=== PATIENT | female | born 1995 | race Caucasian/White ===

== ENCOUNTER → 2024-06-22 | Outpatient (CLI) | payer MEDICARE, MEDICAID, SELFPAY ==
[2024-06-22 19:40] LABS: Collection Type, Urine Clean Catch; Squamous Epithelial Cell,Urine 0 /hpf (0-5)
[2024-06-22 19:50] LABS: Bacteria,Urine 1+; Bilirubin,Urine Negative (Negative); Blood,Urine 2+ (Negative); Clarity,Urine Clear (Clear/Hazy); Color,Urine Lt-Yellow (Lt Yel-Yel); Glucose, Urine Negative (Negative); Ketones,Urine Negative (Negative); Leukocyte Esterase,Urine Positive (Negative); Nitrite,Urine Negative (Negative); PH,Urine 7.5 (5.0-7.0); Protein,Urine Negative (Neg - Trace); RBC,Urine 5 /hpf (0-3); Specific Gravity,Urine 1.006 (1.001-1.035); Urobilinogen,Urine Negative mg/dL (0.0-1.0); WBC,Urine 17 /hpf (0-5)
[2024-06-22 19:58] LABS: Culture Indicated,Urine Yes
== END | disposition home or self-care (01) ==
LOC: SLDO 19:37
PROVIDERS: PCP Family Medicine; Referring Provider Family Medicine; Visit Provider Family Medicine
DX: N39.0 Urinary tract infection, site not specified (principal); G40.89 Other seizures; G80.0 Spastic quadriplegic cerebral palsy
CPT/HCPCS: 81001; 87077; 87086; 87186

== ENCOUNTER → 2024-08-22 | Outpatient (CLI) | payer MEDICARE, MEDICAID, SELFPAY ==
[2024-08-22 11:25] LABS: Collection Type, Urine Catheter
[2024-08-22 11:58] LABS: Bilirubin,Urine Negative (Negative); Blood,Urine 1+ (Negative); Clarity,Urine Turbid (Clear/Hazy); Color,Urine Yellow (Lt Yel-Yel); Glucose, Urine Negative (Negative); Ketones,Urine Negative (Negative); Leukocyte Esterase,Urine Positive (Negative); Nitrite,Urine Negative (Negative); PH,Urine 8.5 (5.0-7.0); Protein,Urine 1+ (Neg - Trace); RBC,Urine 55 /hpf (0-3); Specific Gravity,Urine 1.021 (1.001-1.035); Squamous Epithelial Cell,Urine < 1 /hpf (0-5); Urobilinogen,Urine Negative mg/dL (0.0-1.0); WBC,Urine 37 /hpf (0-5)
[2024-08-22 11:59] LABS: Culture Indicated,Urine Yes
== END | disposition home or self-care (01) ==
LOC: SLDO 11:18
PROVIDERS: PCP Family Medicine; Referring Provider Family Medicine; Visit Provider Family Medicine
DX: N39.0 Urinary tract infection, site not specified (principal); G40.89 Other seizures; G80.0 Spastic quadriplegic cerebral palsy
CPT/HCPCS: 81001; 87077; 87086; 87186

== ENCOUNTER → 2025-01-10 | Outpatient (CLI) | payer MEDICARE, MEDICAID, SELFPAY ==
[2025-01-10 12:35] LABS: Basophils % (Auto) 0 % (0-2.5); Eosinophils % (Auto) 0 % (0-10); Hemoglobin 15.1 g/dL (12.0-16.0); Immature Granulocytes % (Auto) 1 % (0-0); Lymphocytes # (Auto) 2.2 Thou/mm3 (1.0-4.8); Lymphocytes % (Auto) 26 % (10-50); Mean Corpuscular HGB Conc 33.6 g/dl (31.0-37.0); Mean Corpuscular Hemoglobin 30.7 pg (25.0-35.0); Mean Corpuscular Volume 92 fL (80-100); Monocytes # (Auto) 0.7 Thou/mm3 (0.0-0.8); Monocytes % (Auto) 8 % (0-12); Neutrophils # (Auto) 5.4 Thou/mm3 (1.8-7.7); Neutrophils % (Auto) 64 % (37-80); Nucleated Red Blood Cell % 0 /100 WBC (0); Platelet Count 148 Thou/mm3 (140-440); RDW Standard Deviation 45.3 fL (36.4-46.3); Red Blood Count 4.92 Miln/mm3 (4.00-5.20); White Blood Count 8.4 Thou/mm3 (3.6-11.0)
[2025-01-10 12:56] LABS: Alanine Aminotransferase 27 U/L (10-49); Albumin, Serum 4.5 gm/dL (3.5-5.0); Albumin/Globulin Ratio 1.8 (1.2-2.2); Alkaline Phosphatase 77 U/L (46-116); Anion Gap 15 (7-16); BUN/Creatinine Ratio 28 Ratio (12-20); Bilirubin,Total 0.3 mg/dL (0.3-1.2); Blood Urea Nitrogen 14 mg/dL (9-23); Calcium 9.6 mg/dL (8.3-10.6); Calcium (Corrected) 9.6 mg/dL (8.5-10.1); Carbon Dioxide 26.2 mMol/L (20.0-31.0); Chloride 105 mMol/L (98-107); Creatinine (Component) 0.5 mg/dL (0.6-1.3); Globulin 2.5 gm/dL (2.3-3.5); Glucose 68 mg/dL (74-106); Osmolality,Calculated 289 (275-295); Potassium 3.8 mMol/L (3.4-5.1); Sodium 146 mMol/L (136-145); eGFR > 60 See Note
[2025-01-10 13:04] LABS: Sed Rate (ESR) 13 mm/hr (0-20)
[2025-01-20 06:06] LABS: hs-CRP* 4.7 mg/L
== END | disposition home or self-care (01) ==
LOC: SLDO 11:42
PROVIDERS: PCP Internal Medicine; Referring Provider Internal Medicine; Visit Provider Internal Medicine
DX: Z01.818 Encounter for other preprocedural examination (principal)
CPT/HCPCS: 36415; 80053; 85025; 85652; 86141

== ENCOUNTER → 2025-01-12 | Outpatient (CLI) | payer MEDICARE, MEDICAID, SELFPAY ==
[2025-01-12 15:23] LABS: Collection Type, Urine Catheter; Squamous Epithelial Cell,Urine 0 /hpf (0-5)
[2025-01-12 16:39] LABS: Bacteria,Urine 4+; Bilirubin,Urine Negative (Negative); Blood,Urine 3+ (Negative); Color,Urine Yellow (Lt Yel-Yel); Glucose, Urine Negative (Negative); Ketones,Urine Negative (Negative); Leukocyte Esterase,Urine Positive (Negative); Nitrite,Urine Negative (Negative); Protein,Urine 1+ (Neg - Trace); RBC,Urine 16 /hpf (0-3); Specific Gravity,Urine 1.009 (1.001-1.035); Urobilinogen,Urine Negative mg/dL (0.0-1.0); WBC,Urine 51 /hpf (0-5)
[2025-01-12 17:13] LABS: Clarity,Urine Hazy (Clear/Hazy); Culture Indicated,Urine Yes
== END | disposition home or self-care (01) ==
LOC: SLDO 15:13
PROVIDERS: PCP Family Medicine; Referring Provider Family Medicine; Visit Provider Family Medicine
DX: N39.0 Urinary tract infection, site not specified (principal); R31.9 Hematuria, unspecified; G40.89 Other seizures; G80.0 Spastic quadriplegic cerebral palsy
CPT/HCPCS: 81001; 87077; 87086; 87186

== ENCOUNTER 2025-03-01 08:41 | Inpatient (IN) | payer MEDICARE, MEDICAID, SELFPAY ==
[2025-03-01] VITALS (9 sets, daily range): BP systolic 93–127; BP diastolic 57–77; PULSE 114–144; RESP 14–31; TEMP 37.6–40; O2SAT 94–99; BMI 26.1
--- NOTE | 2025-03-01 08:56 | XR_ITS ---
Examination: AP chest single view Technique one AP portable upright chest single view Date and time: March 01, 2025 0944 hours INDICATIONS: Fever vomiting beginning 2 days ago. FINDINGS: Suspicious for early pneumonia left base retrocardiac Significant elevation right hemidiaphragm Minor prominence left ventricle IMPRESSION: Suspicious for early pneumonia left base
--- NOTE | 2025-03-01 08:56 | EKG_ITS ---
[facility] Test Date: 2025-03-01 Pat Name: MIRELA FAROOQ Department: Room: - Gender: Female Security Engineer: : [id number] Requested By: Litzy Paulino Order Number: [id number] Reading MD: Litzy Paulino Measurements Intervals [place] Rate: 121 P: 57 MS: 144 QRS: 117 QRSD: 93 T: 55 QT: 338 QTc: 480 Interpretive Statements SINUS TACHYCARDIA INCOMPLETE RIGHT BUNDLE BRANCH BLOCK [90+ ms QRS DURATION, TERMINAL R IN V1/V2, 40+ ms S IN I/aVL/V4/V5/V6] NONSPECIFIC ST ELEVATION [0.05+ mV ST ELEVATION] Compared to ECG 04/25/2023 17:47:26 Right ventricular hypertrophy no longer present ST (T wave) deviation still present /store/S0/[id number]/[id number].pdf
--- NOTE | 2025-03-01 09:15 | PD.EDSOB ---
ED SOB =RME/HPI General Chief Complaint: Shortness of Breath/Dyspnea Stated Complaint: SOB Time Seen by Provider: 03/01/25 08:49 Arrival date/time: 03/01/25 08:41 RME / HPI RME / HPI Narrative: 29 year old female patient with history of developmental delay, cerebral palsy, seizures, quadriplegia, and previous aspiration pneumonia presents to the ED [facility] from jail for evaluation of shortness of breath and change in mental status today. Per caregiver, at baseline the patient is able to engage in a conversation. However, noted this morning the patient is only yelling and not answering questions. Additionally noted patient was saturating 90% on room air, hypotensive 69/50, and febrile at 102F. State the patient was given Tylenol and Ativan at 08:00 AM today. Caregiver also states patient had one episode of vomiting 2 days ago and concerned she may have aspirated. Related Data Home Medications ?Medication ?Instructions ?Recorded ?Confirmed acetaminophen 325 mg tablet 325 mg PO Q4H PRN Pain 09/05/18 03/02/25 (Tylenol) ascorbic acid (vitamin C) 500 mg 1,000 mg feeding tube BID 09/05/18 03/02/25 tablet (Vitamin C) methenamine hippurate 1 gram tablet 1 g feeding tube BID 09/05/18 03/02/25 polyethylene glycol 3350 17 17 g feeding tube EVERYOTHERDAY 07/31/19 03/02/25 gram/dose oral powder (Gavilax) cholecalciferol (vitamin D3) 125 5,000 unit feeding tube QDAY 08/07/20 03/02/25 mcg (5,000 unit) tablet (Vitamin D3) docusate sodium 50 mg/5 mL oral 25 ml feeding tube BID 08/07/20 03/02/25 liquid (Docu) ferrous sulfate 220 mg (44 mg 220 mg feeding tube HS 08/07/20 03/02/25 iron)/5 mL oral solution ibuprofen 400 mg tablet 400 mg feeding tube Q6H PRN Pain 08/07/20 03/02/25 melatonin 5 mg tablet 5 mg feeding tube HS 08/07/20 03/02/25 metoprolol tartrate 25 mg tablet 12.5 mg feeding tube QDAY 08/07/20 03/02/25 venlafaxine 75 mg tablet 75 mg feeding tube QAM 08/07/20 03/02/25 venlafaxine 75 mg tablet 150 mg feeding tube HS 08/07/20 03/02/25 zinc sulfate 50 mg zinc (220 mg) 220 mg feeding tube QDAY 08/07/20 03/02/25 tablet Calmoseptine See Rx Instructions topical BID 03/02/25 03/04/25 PRN to prevent redness to coccyx baclofen 20 mg tablet 20 mg feeding tube TID 03/02/25 03/02/25 brompheniramine-phenylephrine 1 118 ml feeding tube Q6H PRN 03/02/25 03/02/25 mg-2.5 mg/5 mL oral solution allergy symptoms (Children's Cold-Allergy (phenylephrine)) lamotrigine 100 mg tablet 100 mg feeding tube BID 03/02/25 03/02/25 (Lamictal) lamotrigine 200 mg tablet 400 mg feeding tube Q12H 03/02/25 03/02/25 levetiracetam 100 mg/mL oral 1,000 mg feeding tube BID 03/02/25 03/02/25 solution (Keppra) lorazepam 1 mg tablet 2 mg feeding tube Q4H PRN agitation 03/02/25 03/02/25 olanzapine 5 mg tablet 25 mg feeding tube HS PRN agitation 03/02/25 03/02/25 Previous Rx's ?Medication ?Instructions ?Recorded cefuroxime axetil 500 mg tablet 500 mg PO Q12H 5 days #10 tabs 03/07/25 tamsulosin 0.4 mg capsule 0.4 mg PO QDAY 14 days #14 caps 03/07/25 Allergies Allergy/AdvReac Type Severity Reaction Status Date / Time amoxicillin Allergy Intermediate Hives Verified 08/07/20 12:05 chloral hydrate Allergy Unknown Verified 11/26/16 01:55 Review of Systems Review of Systems ROS Unobtainable: unobtainable due to medical condition Past Medical History Past Medical History NEUROLOGIC: Positive Neurological Disorders, Seizures and Cerebral Palsy RESPIRATORY: Positive Pneumonia and Respiratory Aspiration GASTROINTESTINAL: Positive Gastrointestinal Disorders MUSCULOSKELETAL: Positive Musculoskeletal Disorders OTHER HISTORY: Positive Developmental Delay Surgical History SURGICAL: Positive Joint Replacement Social History SMOKING STATUS: Never smoker SUBSTANCE USE: does not use ED Exam Narrative Physical exam: GENERAL APPEARANCE: Altered, pale, diaphoretic HEENT: Normocephalic, atraumatic; pupils equal, round, reactive to light; EOMI; mucous membranes pink, moist; oropharynx clear NECK: Supple LUNGS: Mild wheeze on the left, upper airway noise on the right; no rales, no rhonchi HEART: Regular rate, regular rhythm; normal S1, S2; no murmurs ABDOMEN: non distended; normal BS; soft, no tenderness, no guarding, no rebound; no masses, no organomegaly, no hernia BACK: no CVA tenderness EXTREMITIES: chronic limb contracture; no edema NEUROLOGIC: Altered; cranial nerves II-XII grossly intact SKIN: warm, pale, diaphoretic; no rashes Course Course Course Narrative: 1020: RN reports patient has received 1L of IV NS and remains hypotensive at 80/62. 1250: I spoke with hospitalist team, they are requesting CT abd/pelvis prior to admission. CT abdomen pelvis resulted and discussed results with hospitalist Dr. He who is requesting we consult with urology prior to admission. 1800: Patient signed out to Dr. Avila pending transfer for urology. Quality Measures Current suspected stage: sepsis Possible source: genitourinary Blood cultures ordered: completed in ED Antibiotic ordered: Yes Pertinent labs: 03/01/25 03/01/25 09:22 16:48 Lactic Acid 1.9 mMol/L 1.5 mMol/L (0.4-2.0) (0.4-2.0) Procalcitonin 0.66 H ng/ml (0.0-0.49) sepsis Orders Category Date Time Status Bedside COVID-19 Antigen Test NOW Care 03/01/25 10:35 Completed Bedside Influenza A&B Antigen Test NOW Care 03/01/25 10:35 Completed [employer]s Sales Q4H START 00 Care 03/01/25 08:56 Active EKG (ED ONLY) *Do not use* NOW Care 03/01/25 08:56 Completed Referral - Work From Home Stat Cons 03/01/25 16:[address] abdomen pelvis wo con Stat Exams 03/01/25 12:[address] head/brain wo con Stat Exams 03/01/25 12:55 Completed EKG (ED Only) Stat Exams 03/01/25 08:56 Draft XR chest 1V portable Stat Exams 03/01/25 08:56 Completed B-Type Natriuretic Peptide Stat Lab 03/01/25 09:22 Completed Blood Culture (Lab) Stat Lab 03/01/25 09:22 Completed CBC Stat Lab 03/01/25 09:22 Completed Comprehensive Metabolic Panel Stat Lab 03/01/25 09:22 Completed HCG,Qualitative Serum Stat Lab 03/01/25 09:22 Completed Lactate (Lactic Acid) Stat Lab 03/01/25 09:22 Completed Lactic Acid [Lactate (Lactic Acid)] Stat Lab 03/01/25 16:48 Completed Lipase Stat Lab 03/01/25 09:22 Completed Magnesium Stat Lab 03/01/25 09:22 Completed Partial Thromboplastin Time Stat Lab 03/01/25 09:22 Completed Procalcitonin Stat Lab 03/01/25 09:22 Completed Prothrombin Time with INR Stat Lab 03/01/25 09:22 Completed Troponin I Stat Lab 03/01/25 09:22 Completed Urinalysis Stat Lab 03/01/25 11:34 Completed Urine Culture Stat Lab 03/01/25 10:12 Completed VBG [Venous Blood Gas] Stat Lab 03/01/25 16:48 Completed Acetaminophen Ivpb [Ofirmev Inj] Med 03/01/25 20:53 Discontinued 1,000 mg in 100 ml IV Q6HR Acetaminophen Supp [Tylenol Supp] Med 03/01/25 09:39 Discontinued 650 mg WV X1 ONE Clindamycin 900Mg Ivpb [Cleocin/D5w Ivpb] 900 mg Med 03/01/25 21:08 Discontinued Pre-Mixed [Pre-mixed Bag] 1 bag IV X1 Morphine Inj Med 03/01/25 10:40 Discontinued 3 mg IVP X1 ONE Ondansetron Inj [Zofran Inj] Med 03/01/25 10:40 Discontinued 4 mg IVP X1 ONE Ringers Lactated 1000 ml [Lactated Ringers] 500 ml Med 03/01/25 18:00 Discontinued IV 999 mls/hr Sodium Chloride 0.9% 1000 ml [Ns] 1,000 ml Med 03/01/25 09:39 Discontinued IV 999 mls/hr Sodium Chloride 0.9% 1000 ml [Ns] 1,000 ml Med 03/01/25 10:20 Discontinued IV 999 mls/hr Sodium Chloride 0.9% 1000 ml [Ns] 1,000 ml Med 03/01/25 16:00 Discontinued IV 999 mls/hr Sodium Chloride 0.9% 1000 ml [Ns] 1,000 ml Med 03/01/25 20:53 Discontinued IV 999 mls/hr cefTRIAXone/D5w 1gm IV premix [Rocephin/D5w 1gm IV Med 03/01/25 10:32 Discontinued premix] 1 gm in 50 ml IV X1 fentaNYL INJ [Sublimaze Inj] Med 03/01/25 15:01 Discontinued 100 mcg IVP X1 ONE Vital Signs Vital signs: Vital Signs Temperature 103.2 F H 03/01/25 09:05 Pulse Rate 123 H 03/01/25 09:05 Respiratory Rate 31 H 03/01/25 09:05 Blood Pressure 93/63 03/01/25 09:05 Pulse Oximetry (%) 94 L 03/01/25 09:05 Oxygen Delivery Method Nasal Cannula 03/01/25 09:05 Oxygen Flow Rate 4 03/01/25 09:05 Shortness of Breath / Dyspnea MDM Narrative MDM Narrative:: Madelin Rasmussen am scribing for and in the presence of Dr. Falcon. Patient data External records reviewed:: [facility] previous records (I reviewed ED visit on 04/25/2023. I reviewed urine culture on 01/12/2025 that resulted positive for proteus mirabilis and resistant to Levofloxacin, Nitrofurantoin, and Tetracycline ) and EMS form Clinical information provided by:: EMS and home care provider Social determinants that could affect healthcare access:: housing (jail resident ) Patient has the following chronic illnesses:: developmental delay, cerebral palsy, seizures, quadriplegia, and previous aspiration pneumonia How is presenting disease/condition affected by chronic disease/condition?: exacerbated by Evaluation data The following diagnostics were reviewed and interpreted by me:: lab results, radiology exam(s) and EKG tracing(s) (Sinus tachycardia, rate 121, complete RBBB, Q-wave in lead III T-wave inversion in v1 through v5, no acute ischemic changes. ) Lab and/or radiology exams considered but not ordered:: None Interpretation Summary: Ordering Physician: Litzy Falcon MD Date of Service: 03/01/25 Procedure(s): XR chest 1V portable Accession Number(s): [id number] cc: Hever Mcgowan MD; Radha Juan SKETCH LINER; Litzy Falcon MD~ Examination: AP chest single view Technique one AP portable upright chest single view Date and time: March 01, 2025 0944 hours INDICATIONS: Fever vomiting beginning 2 days ago. FINDINGS: Suspicious for early pneumonia left base retrocardiac Significant elevation right hemidiaphragm Minor prominence left ventricle IMPRESSION: Suspicious for early pneumonia left base Dictated By: Hever Mcgowan MD Signed By: <Electronically signed by Hever Mcgowan MD in OV> 03/01/25 1010 Ordering Physician: Litzy Falcon MD Date of Service: 03/01/25 Procedure(s): CT abdomen pelvis [facility] Accession Number(s): [id number] cc: Hever Mcgowan MD; Radha Juan SKETCH LINER; Litzy Falcon MD~ Examination: CT abdomen and pelvis without contrast. Coronal 3-D reconstructions. Sagittal 2-D reconstructions. Date and time of exam:March 01, 2025 1443 hours Comparison 04/25/2023 INDICATIONS: Hematuria today CTDI: vol (mGy): 12.9 DLP: (mGycm): 687 Technique: Axial images of the abdomen have been obtained, 3 mm slice thickness Intravenous contrast material has not been administered. Low dose protocols were performed. One or more of the following dose reduction techniques were used; automated exposure control, adjustment of the mA and/or KV according to patient size, use of iterative reconstruction technique. Findings: Mild enlargement cardiac contour Atelectasis in the lower lung zones Mild hepatomegaly No gallstones No pancreatic or adrenal mass Numerous bilateral calcifications including 20 mm calculus in the right renal pelvis on the right and staghorn calculus occupying lower pole calyces left kidney and left renal pelvis, the pelvic portion measuring 18 mm Severe scarring left kidney No hydronephrosis No pericecal inflammatory change Severe lumbar levoscoliosis Urinary Shen catheter Contracted urinary bladder Gastrostomy tube satisfactory position IMPRESSION: Numerous bilateral renal calcifications however no hydronephrosis Severe scarring left kidney Dictated By: Hever Mcgowan MD Signed By: <Electronically signed by Hever Mcgowan MD in OV> 03/01/25 1503 Ordering Physician: Litzy Falcon MD Date of Service: 03/01/25 Procedure(s): CT head/brain wo con Accession Number(s): [id number] cc: Hever Mcgowan MD; Radha Juan SKETCH [employer]ER; Litzy Falcon MD~ Examination: CT brain head without contrast. 2-D sagittal coronal reconstructions Date and time of exam:March 01, 2025 1439 hours Comparison July 31, 2019 INDICATIONS: Onset altered mental status today CTDI: vol (mGy):57.9 DLP: (mGycm):1218 Technique: Multiple CT axial sections of the brain have been obtained, 5 mm slice thickness. Contrast has not been administered. 2-D sagittal, coronal reconstructions have been obtained Low dose protocols were performed. One or more of the following dose reduction techniques were used; automated exposure control, adjustment of the mA and/or KV according to patient size, use of iterative reconstruction technique. Findings: No significant ventricular enlargement. Intra-axial or extra-axial hemorrhage density is not seen. No mass effect or midline shift Basal cisterns are not remarkable. Fourth ventricle is midline. Cranial vault intact. Impression: Negative for acute hemorrhage, mass effect or midline shift Advise clinical correlation and follow-up accordingly Dictated By: Hever Mcgowan MD Signed By: <Electronically signed by Hever Mcgowan MD in OV> 03/01/25 1455 Medications / Prescriptions Medications or Prescriptions considered but not ordered:: None Medication administrations:: Medication Administration History Acetylcysteine (Acetylcysteine Rt Melanie 10% 4 Ml Nebu) 3 ml INH Q6HRRT NOMAN Stop: 04/02/25 18:59 Last Admin: 03/06/25 06:13 Dose: 3 ml Documented By: Admin: 03/06/25 00:59 Dose: 3 ml Documented By: Admin: 03/05/25 18:56 Dose: 3 ml Documented By: Admin: 03/05/25 13:17 Dose: 3 ml Documented By: Admin: 03/05/25 06:41 Dose: Not Given Documented By: [email or web address] Non-Admin Reason: Medication Not Available Admin: 03/05/25 01:47 Dose: 3 ml Documented By: Admin: 03/04/25 18:51 Dose: 3 ml Documented By: Admin: 03/04/25 12:14 Dose: 3 ml Documented By: Admin: 03/04/25 06:00 Dose: 3 ml Documented By: Admin: 03/04/25 00:23 Dose: 3 ml Documented By: Admin: 03/03/25 18:29 Dose: 3 ml Documented By: NOEL Ascorbic Acid (Ascorbic Acid 250 Mg Tablet) 1,000 mg GT BID NOMAN Stop: 04/01/25 08:59 Last Admin: 03/07/25 20:49 Dose: 1,000 mg Documented By: Admin: 03/07/25 09:07 Dose: 1,000 mg Documented By: Admin: 03/06/25 20:57 Dose: 1,000 mg Documented By: Admin: 03/06/25 08:21 Dose: 1,000 mg Documented By: Admin: 03/05/25 20:33 Dose: 1,000 mg Documented By: Admin: 03/05/25 08:56 Dose: 1,000 mg Documented By: Admin: 03/04/25 20:22 Dose: 1,000 mg Documented By: Admin: 03/04/25 08:49 Dose: 1,000 mg Documented By: Admin: 03/03/25 20:36 Dose: 1,000 mg Documented By: Admin: 03/03/25 09:15 Dose: 1,000 mg Documented By: [email or web address] Admin: 03/02/25 21:14 Dose: 1,000 mg Documented By: Admin: 03/02/25 09:40 Dose: 1,000 mg Documented By: CS Azithromycin (Azithromycin 250 Mg Tablet) 250 mg PO QDAY NOMAN Stop: 03/09/25 08:59 Last Admin: 03/07/25 09:07 Dose: 250 mg Documented By: Admin: 03/06/25 08:40 Dose: 250 mg Documented By: BASHIR Balsam Kay/Altoona Oil (Balsam Kay/[place] Oil (Venelex) 60 Gm Tube) 0 gm TOP TID NOMAN Stop: 04/01/25 05:59 Last Admin: 03/08/25 05:15 Dose: 1 applicatio Documented By: Admin: 03/07/25 21:04 Dose: 1 applicatio Documented By: RAKAN Comments: Admin: 03/07/25 13:12 Dose: 1 applicatio Documented By: Admin: 03/07/25 05:42 Dose: 1 applicatio Documented By: Admin: 03/06/25 21:06 Dose: 1 applicatio Documented By: Admin: 03/06/25 14:45 Dose: 1 applicatio Documented By: Admin: 03/06/25 05:21 Dose: 1 applicatio Documented By: Admin: 03/05/25 21:17 Dose: 1 applicatio Documented By: Admin: 03/05/25 14:39 Dose: 1 applicatio Documented By: Admin: 03/05/25 05:15 Dose: 1 applicatio Documented By: Admin: 03/04/25 21:14 Dose: 1 applicatio Documented By: Admin: 03/04/25 14:09 Dose: 1 applicatio Documented By: Admin: 03/04/25 05:48 Dose: 1 applicatio Documented By: Admin: 03/03/25 22:51 Dose: 1 applicatio Documented By: Admin: 03/03/25 14:42 Dose: 1 applicatio Documented By: Admin: 03/03/25 05:33 Dose: 1 applicatio Documented By: Admin: 03/02/25 21:20 Dose: 1 applicatio Documented By: Admin: 03/02/25 14:23 Dose: 1 applicatio Documented By: Admin: 03/02/25 05:59 Dose: 1 applicatio Documented By: MICHELLE(2) Methenamine Hippurate 1 Gm Tablet 0 ea GT BIDWM NOMAN Stop: 04/01/25 08:29 Last Admin: 03/07/25 17:25 Dose: 1 tablet Documented By: Admin: 03/07/25 09:00 Dose: 1 tablet Documented By: Admin: 03/06/25 17:50 Dose: 1 tablet Documented By: Admin: 03/06/25 08:19 Dose: 1 tablet Documented By: Admin: 03/05/25 17:26 Dose: 1 tablet Documented By: Admin: 03/05/25 08:55 Dose: 1 tablet Documented By: Admin: 03/04/25 16:30 Dose: 1 tablet Documented By: Admin: 03/04/25 08:48 Dose: 1 tablet Documented By: Admin: 03/03/25 17:38 Dose: 1 tablet Documented By: Admin: 03/03/25 09:17 Dose: 1 tablet Documented By: Admin: 03/02/25 19:36 Dose: 1 tablet Documented By: Admin: 03/02/25 09:30 Dose: 1 tablet Documented By: PADDY Guaifenesin (Guaifenesin Syrup 200 Mg/10 Ml Udc) 100 mg PO QID PRN; Protocol PRN Reason: COUGH Stop: 04/02/25 11:58 Last Admin: 03/04/25 05:47 Dose: 100 mg Documented By: ARACELI Acetaminophen (Ofirmev Inj) 1,000 mg in 100 mls @ 250 mls/hr IV Q6HR PRN PRN Reason: Pain 1-3 or Fever>100.1 Last Infusion: 03/02/25 10:05 Dose: Infused Documented By: Admin: 03/02/25 09:39 Dose: 250 mls/hr Documented By: Infusion: 03/02/25 02:10 Dose: Infused Documented By: Admin: 03/02/25 01:46 Dose: 250 mls/hr Documented By: CMC(2) Ceftriaxone Sodium/Dextrose (Rocephin/D5w 1gm Iv Premix) 1 gm in 50 mls @ 100 mls/hr IV QDAY NOMAN Stop: 03/12/25 14:53 Last Infusion: 03/07/25 10:15 Dose: Infused Documented By: Admin: 03/07/25 09:04 Dose: 100 mls/hr Documented By: Infusion: 03/06/25 09:14 Dose: Infused Documented By: Admin: 03/06/25 08:44 Dose: 100 mls/hr Documented By: Infusion: 03/05/25 15:57 Dose: Infused Documented By: Admin: 03/05/25 15:27 Dose: 100 mls/hr Documented By: ESHA Ipratropium [place] (Ipratropium Rt 0.5 Mg/ 2.5 Ml Nebu) 0.5 mg INH Q6HRRT NOMAN Stop: 04/03/25 18:59 Last Admin: 03/08/25 06:52 Dose: 0.5 mg Documented By: Admin: 03/08/25 01:14 Dose: 0.5 mg Documented By: Admin: 03/07/25 18:44 Dose: 0.5 mg Documented By: Admin: 03/07/25 12:03 Dose: 0.5 mg Documented By: Admin: 03/07/25 06:34 Dose: 0.5 mg Documented By: Admin: 03/07/25 01:17 Dose: 0.5 mg Documented By: Admin: 03/06/25 18:45 Dose: 0.5 mg Documented By: Admin: 03/06/25 12:12 Dose: 0.5 mg Documented By: Admin: 03/06/25 06:13 Dose: 0.5 mg Documented By: Admin: 03/06/25 01:00 Dose: 0.5 mg Documented By: Admin: 03/05/25 18:56 Dose: 0.5 mg Documented By: Admin: 03/05/25 13:17 Dose: 0.5 mg Documented By: Admin: 03/05/25 06:41 Dose: 0.5 mg Documented By: Admin: 03/05/25 01:47 Dose: 0.5 mg Documented By: SC Admin: 03/04/25 18:51 Dose: 0.5 mg Documented By: SC Lamotrigine (Lamotrigine 25 Mg Chew) 500 mg GT BID NOMAN Stop: 04/06/25 20:59 Last Admin: 03/07/25 20:46 Dose: 500 mg Documented By: IG Lansoprazole (Lansoprazole 30 Mg Tab.Rap) 30 mg GT BID NOMAN Stop: 04/01/25 08:59 Last Admin: 03/07/25 20:47 Dose: 30 mg Documented By: Admin: 03/07/25 09:08 Dose: 30 mg Documented By: Admin: 03/06/25 20:57 Dose: 30 mg Documented By: Admin: 03/06/25 08:24 Dose: 30 mg Documented By: Admin: 03/05/25 20:33 Dose: 30 mg Documented By: Admin: 03/05/25 08:57 Dose: 30 mg Documented By: Admin: 03/04/25 20:23 Dose: 30 mg Documented By: Admin: 03/04/25 08:51 Dose: 30 mg Documented By: Admin: 03/03/25 20:36 Dose: 30 mg Documented By: Admin: 03/03/25 09:10 Dose: 30 mg Documented By: [email or web address] Admin: 03/02/25 21:15 Dose: 30 mg Documented By: Admin: 03/02/25 09:40 Dose: 30 mg Documented By: PADDY Levalbuterol HCl (Levalbuterol Rt 1.25 Mg/0.5 Ml Nebu) 1.25 mg INH Q6HRRT PRN PRN Reason: WHEEZING Stop: 04/03/25 15:41 Levetiracetam (Levetiracetam Liqd 500 Mg/5 Ml Udc) 1,000 mg GT BID NOMAN Stop: 04/06/25 20:59 Last Admin: 03/07/25 20:47 Dose: 1,000 mg Documented By: IG Lorazepam (Lorazepam 0.5 Mg Tablet) 2 mg PO Q6H PRN PRN Reason: agitation Stop: 03/08/25 18:43 Last Admin: 03/06/25 16:24 Dose: 2 mg Documented By: Admin: 03/06/25 06:24 Dose: 2 mg Documented By: Admin: 03/05/25 22:49 Dose: 2 mg Documented By: Admin: 03/05/25 15:15 Dose: 2 mg Documented By: Admin: 03/04/25 08:58 Dose: 2 mg Documented By: ESHA Melatonin (Melatonin 3 Mg Tablet) 6 mg GT HS [facility]; Protocol Stop: 04/01/25 20:59 Last Admin: 03/07/25 20:49 Dose: 6 mg Documented By: Admin: 03/06/25 20:58 Dose: 6 mg Documented By: Admin: 03/05/25 20:34 Dose: 6 mg Documented By: Admin: 03/04/25 20:22 Dose: 6 mg Documented By: Admin: 03/03/25 20:36 Dose: 6 mg Documented By: Admin: 03/02/25 21:15 Dose: 6 mg Documented By: Metoprolol Tartrate (Metoprolol Tartrate 25 Mg Tablet) 25 mg GT BID NOMAN Stop: 04/06/25 20:59 Last Admin: 03/07/25 20:48 Dose: 25 mg Documented By: RAKAN Multivitamins/Minerals (Multivitamin 15 Ml Udc) 15 ml GT QDAY [facility] Stop: 04/01/25 08:59 Last Admin: 03/07/25 09:07 Dose: 15 ml Documented By: Admin: 03/06/25 08:40 Dose: 15 ml Documented By: Admin: 03/05/25 08:55 Dose: 15 ml Documented By: Admin: 03/04/25 08:49 Dose: 15 ml Documented By: Admin: 03/03/25 09:09 Dose: 15 ml Documented By: [email or web address] Admin: 03/02/25 09:39 Dose: 15 ml Documented By: PADDY Olanzapine (Olanzapine 5 Mg Tablet) 20 mg GT HS [facility] Stop: 04/01/25 20:59 Last Admin: 03/07/25 20:47 Dose: 20 mg Documented By: Admin: 03/06/25 20:58 Dose: 20 mg Documented By: Admin: 03/05/25 20:34 Dose: 20 mg Documented By: Admin: 03/04/25 20:22 Dose: 20 mg Documented By: Admin: 03/03/25 20:36 Dose: 20 mg Documented By: Admin: 03/02/25 21:14 Dose: 20 mg Documented By: Ondansetron HCl (Ondansetron Inj 2 Mg/Ml Inj 2 Ml) 4 mg IVP Q6H PRN; Protocol PRN Reason: NAUSEA OR VOMITING Stop: 03/31/25 22:47 Polyethylene Glycol (Polyethylene Glycol 17 Gm Packet) 17 gm GT QOD PRN; Protocol PRN Reason: constipation Stop: 04/01/25 08:59 Sennosides (Senna Tablet) 1 tab GT QDAY PRN; Protocol PRN Reason: constipation Stop: 03/31/25 22:47 Sodium Chloride (Sodium Chloride Rt Melanie 0.9% 3 Ml Nebu) 3 ml INH PRN PRN PRN Reason: SOLN Stop: 04/03/25 15:41 Trazodone HCl (Trazodone Hcl 50 Mg Tablet) 50 mg GT HS PRN PRN Reason: Sleep Stop: 03/31/25 22:56 Last Admin: 03/05/25 21:26 Dose: 50 mg Documented By: Admin: 03/04/25 23:30 Dose: 50 mg Documented By: Admin: 03/02/25 02:38 Dose: 50 mg Documented By: MICHELLE(2) Venlafaxine HCl (Venlafaxine 37.5 Mg Tablet) 75 mg GT QAM NOMAN Stop: 04/01/25 08:59 Last Admin: 03/07/25 09:07 Dose: 75 mg Documented By: Admin: 03/06/25 08:23 Dose: 75 mg Documented By: Admin: 03/05/25 09:50 Dose: 75 mg Documented By: Admin: 03/04/25 08:51 Dose: 75 mg Documented By: Admin: 03/03/25 09:10 Dose: 75 mg Documented By: [email or web address] Admin: 03/02/25 10:00 Dose: 75 mg Documented By: PADDY Venlafaxine HCl (Venlafaxine 37.5 Mg Tablet) 150 mg GT HS ONMAN Stop: 04/01/25 20:59 Last Admin: 03/07/25 20:48 Dose: 150 mg Documented By: Admin: 03/06/25 20:58 Dose: 150 mg Documented By: Admin: 03/05/25 20:34 Dose: 150 mg Documented By: Admin: 03/04/25 20:22 Dose: 150 mg Documented By: Admin: 03/03/25 20:35 Dose: 150 mg Documented By: Admin: 03/02/25 21:15 Dose: 150 mg Documented By: Vitamin D (Cholecalciferol (Vitamin D3) 1,000 Iu Tablet) 5,000 iu GT QDAY NOMAN Stop: 04/01/25 08:59 Last Admin: 03/07/25 09:08 Dose: 5,000 iu Documented By: Admin: 03/06/25 08:22 Dose: 5,000 iu Documented By: Admin: 03/05/25 08:59 Dose: 5,000 iu Documented By: Admin: 03/04/25 08:52 Dose: 5,000 iu Documented By: Admin: 03/03/25 09:09 Dose: 5,000 iu Documented By: Admin: 03/02/25 09:40 Dose: 5,000 iu Documented By: PADDY Zinc Sulfate (Zinc Sulfate 220 Mg Capsule) 220 mg GT QDAY NOMAN Stop: 04/01/25 08:59 Last Admin: 03/07/25 09:07 Dose: 220 mg Documented By: Admin: 03/06/25 08:24 Dose: 220 mg Documented By: Admin: 03/05/25 08:57 Dose: 220 mg Documented By: Admin: 03/04/25 08:51 Dose: 220 mg Documented By: Admin: 03/03/25 09:16 Dose: 220 mg Documented By: Admin: 03/02/25 09:44 Dose: 220 mg Documented By: PADDY Discontinued Medications Acetaminophen (Acetaminophen Supp 650 Mg Supp) 650 mg W[place] X1 ONE Stop: 03/01/25 09:40 Last Admin: 03/01/25 10:12 Dose: 650 mg Documented By: ROSA MARIA Acetaminophen (Acetaminophen 325 Mg Tablet) 650 mg PO Q6H PRN PRN Reason: PAIN SCALE 1-3 (mild Stop: 03/31/25 22:47 Ascorbic Acid (Ascorbic Acid 250 Mg Tablet) 1,000 mg PO BID NOMAN Stop: 03/31/25 22:59 Last Admin: 03/02/25 00:14 Dose: Not Given Documented By: SF Non-Admin Reason: Cancelled by Provider Azithromycin (Azithromycin 250 Mg Tablet) 500 mg PO X1 ONE Stop: 03/05/25 14:58 Last Admin: 03/05/25 15:27 Dose: 500 mg Documented By: ESHA Fentanyl Citrate (Fentanyl Cit Inj 50 Mcg/Ml Amp 2ml) 100 mcg IVP X1 ONE Stop: 03/01/25 15:02 Last Admin: 03/01/25 15:28 Dose: 100 mcg Documented By: BASHIR(2) Fosfomycin Tromethamine (Fosfomycin Pwd 3 Gm Packet (Non-Formulary)) 3 gm PO DAILY NOMAN Stop: 03/10/25 10:29 Last Admin: 03/04/25 19:34 Dose: Not Given Documented By: SAMIRA Non-Admin Reason: Discontinued Admin: 03/03/25 11:30 Dose: 3 gm Documented By: ROBBIE Furosemide (Furosemide Inj 10 Mg/Ml 4ml Vial) 40 mg IVP X1 ONE Stop: 03/06/25 10:59 Last Admin: 03/06/25 16:21 Dose: Not Given Documented By: BASHIR Non-Admin Reason: Other, see note Furosemide (Furosemide Inj 10 Mg/Ml 4ml Vial) 40 mg IVP X1 ONE Stop: 03/06/25 16:23 Last Admin: 03/06/25 16:30 Dose: 40 mg Documented By: BASHIR Furosemide (Furosemide Inj 10 Mg/Ml 4ml Vial) 40 mg IVP X1 ONE Stop: 03/07/25 08:38 Last Admin: 03/07/25 09:20 Dose: 40 mg Documented By: BASHIR Guaifenesin (Guaifenesin Syrup 200 Mg/10 Ml Udc) 100 mg PO X1 ONE; Protocol Stop: 03/03/25 12:00 Last Admin: 03/03/25 12:38 Dose: 100 mg Documented By: ROBBIE Hyoscyamine (Hyoscyamine Sulf 0.125 Mg Tab.Subl) 0.25 mg GT X1 ONE Stop: 03/06/25 07:55 Last Admin: 03/06/25 08:20 Dose: 0.25 mg Documented By: BASHIR Hyoscyamine (Hyoscyamine Sulf 0.125 Mg Tab.Subl) 0.25 mg GT X1 ONE Stop: 03/07/25 09:42 Last Admin: 03/07/25 10:51 Dose: 0.25 mg Documented By: BASHIR Sodium Chloride (Ns) 1,000 mls @ 999 mls/hr IV .Q1H1M ONE Stop: 03/01/25 10:39 Last Infusion: 03/01/25 11:13 Dose: Infused Documented By: BASHIR(2) Admin: 03/01/25 10:12 Dose: 999 mls/hr Documented By: ROSA MARIA Sodium Chloride (Ns) 1,000 mls @ 999 mls/hr IV .Q1H1M ONE Stop: 03/01/25 11:20 Last Infusion: 03/01/25 11:28 Dose: Infused Documented By: VL(2) Admin: 03/01/25 10:27 Dose: 999 mls/hr Documented By: ROSA MARIA Ceftriaxone Sodium/Dextrose (Rocephin/D5w 1gm Iv Premix) 1 gm in 50 mls @ 100 mls/hr IV X1 ONE Stop: 03/01/25 11:01 Last Infusion: 03/01/25 11:48 Dose: Infused Documented By: BASHIR(2) Admin: 03/01/25 11:18 Dose: 100 mls/hr Documented By: ROSA MARIA Sodium Chloride (Ns) 1,000 mls @ 999 mls/hr IV .Q1H1M ONE Stop: 03/01/25 17:00 Last Infusion: 03/01/25 18:00 Dose: Infused Documented By: ROSA MARIA Admin: 03/01/25 16:15 Dose: 999 mls/hr Documented By: ROSA MARIA Lactated Ringer's (Lactated Ringers) 500 mls @ 999 mls/hr IV .Q31M ONE Stop: 03/01/25 18:30 Last Infusion: 03/01/25 19:34 Dose: Infused Documented By: Admin: 03/01/25 17:59 Dose: 999 mls/hr Documented By: ROSA MARIA Acetaminophen (Ofirmev Inj) 1,000 mg in 100 mls @ 250 mls/hr IV Q6HR NOMAN Stop: 03/02/25 12:23 Last Admin: 03/02/25 02:30 Dose: Not Given Documented By: CMC(2) Non-Admin Reason: Not In Room Infusion: 03/01/25 21:35 Dose: Infused Documented By: Admin: 03/01/25 21:08 Dose: 250 mls/hr Documented By: CHERYL Sodium Chloride (Ns) 1,000 mls @ 999 mls/hr IV .Q1H1M ONE Stop: 03/01/25 21:53 Last Infusion: 03/01/25 23:23 Dose: Infused Documented By: Admin: 03/01/25 21:10 Dose: 999 mls/hr Documented By: CHERYL Clindamycin Phosphate 900 mg/ (IV Miscellaneous Supplies) 50 mls @ 50 mls/hr IV X1 ONE Stop: 03/01/25 22:07 Last Infusion: 03/01/25 23:24 Dose: Infused Documented By: Admin: 03/01/25 21:30 Dose: 50 mls/hr Documented By: CHERYL Piperacillin/Tazobactam/Dextrose (Zosyn) 3.375 gm in 50 mls @ 12.5 mls/hr IV Q8HR [facility]; Protocol Stop: 03/09/25 05:59 Last Admin: 03/03/25 05:32 Dose: 12.5 mls/hr Documented By: Infusion: 03/03/25 02:35 Dose: Infused Documented By: Admin: 03/02/25 22:35 Dose: 12.5 mls/hr Documented By: Infusion: 03/02/25 19:00 Dose: Infused Documented By: Admin: 03/02/25 15:00 Dose: 12.5 mls/hr Documented By: Infusion: 03/02/25 09:59 Dose: Infused Documented By: Admin: 03/02/25 05:59 Dose: 12.5 mls/hr Documented By: CMC(2) Piperacillin Sod/Tazobactam (Sod 4.5 gm/ Sodium Chloride) 100 mls @ 200 mls/hr IV X1 ONE Stop: 03/02/25 00:14 Last Admin: 03/02/25 00:42 Dose: 200 mls/hr Documented By: CHERYL Magnesium Sulfate (Magnesium Sulfate Ivpb) 2 gm in 50 mls @ 25 mls/hr IV X1 ONE Stop: 03/02/25 10:23 Last Admin: 03/02/25 09:24 Dose: 25 mls/hr Documented By: PADDY Potassium Phosphate 22.5 mmol/ (Sodium Chloride) 507.5 mls @ 82.778 mls/hr IV X1 ONE Stop: 03/03/25 14:19 Last Admin: 03/03/25 09:16 Dose: 82.778 mls/hr Documented By: [email or web address] Magnesium Sulfate (Magnesium Sulfate Ivpb) 4 gm in 50 mls @ 12.5 mls/hr IV X1 ONE Stop: 03/04/25 12:19 Last Admin: 03/04/25 09:42 Dose: 12.5 mls/hr Documented By: AURE Potassium Phosphate 22.5 mmol/ (Sodium Chloride) 507.5 mls @ 82.778 mls/hr IV X1 ONE Stop: 03/04/25 14:27 Last Admin: 03/04/25 09:41 Dose: 82.778 mls/hr Documented By: AURE Magnesium Sulfate (Magnesium Sulfate Ivpb) 2 gm in 50 mls @ 25 mls/hr IV X1 ONE Stop: 03/06/25 09:52 Last Admin: 03/06/25 10:08 Dose: 25 mls/hr Documented By: BASHIR Levalbuterol HCl (Levalbuterol Rt 0.63 Mg/3 Ml Nebu) 0.63 mg INH Q6HRRT NOMAN Stop: 04/01/25 01:59 Last Admin: 03/04/25 12:14 Dose: 0.63 mg Documented By: Admin: 03/04/25 06:01 Dose: 0.63 mg Documented By: Admin: 03/04/25 00:24 Dose: 0.63 mg Documented By: Admin: 03/03/25 18:29 Dose: 0.63 mg Documented By: Admin: 03/03/25 14:02 Dose: 0.63 mg Documented By: Admin: 03/03/25 06:31 Dose: 0.63 mg Documented By: Admin: 03/03/25 01:27 Dose: 0.63 mg Documented By: Admin: 03/02/25 19:09 Dose: 0.63 mg Documented By: Admin: 03/02/25 13:26 Dose: 0.63 mg Documented By: Admin: 03/02/25 06:25 Dose: 0.63 mg Documented By: Admin: 03/02/25 02:13 Dose: 0.63 mg Documented By: KREVIN Levalbuterol HCl (Levalbuterol Rt 0.63 Mg/3 Ml Nebu) 0.63 mg INH X1 ONE Stop: 03/03/25 18:37 Last Admin: 03/03/25 19:28 Dose: Not Given Documented By: NOEL Non-Admin Reason: Duplicate Medication on eMAR Levetiracetam (Levetiracetam Liqd 500 Mg/5 Ml Udc) 500 mg PO BID [facility] Stop: 03/31/25 22:59 Last Admin: 03/02/25 00:14 Dose: Not Given Documented By: SF Non-Admin Reason: Discontinued Levetiracetam (Levetiracetam Liqd 500 Mg/5 Ml Udc) 500 mg GT BID NOMAN Stop: 03/07/25 18:44 Last Admin: 03/07/25 09:07 Dose: 500 mg Documented By: Admin: 03/06/25 20:57 Dose: 500 mg Documented By: Admin: 03/06/25 08:39 Dose: 500 mg Documented By: Admin: 03/05/25 20:34 Dose: 500 mg Documented By: Admin: 03/05/25 08:55 Dose: 500 mg Documented By: Admin: 03/04/25 20:22 Dose: 500 mg Documented By: Admin: 03/04/25 08:49 Dose: 500 mg Documented By: Admin: 03/03/25 20:36 Dose: 500 mg Documented By: Admin: 03/03/25 09:09 Dose: 500 mg Documented By: Admin: 03/02/25 21:15 Dose: 500 mg Documented By: Admin: 03/02/25 09:39 Dose: 500 mg Documented By: PDADY Levofloxacin (Levofloxacin 250 Mg Tablet) 500 mg PO QDAY [facility] Stop: 03/08/25 12:00 Last Admin: 03/05/25 08:57 Dose: 500 mg Documented By: Admin: 03/04/25 08:49 Dose: 500 mg Documented By: AURE Lorazepam (Lorazepam 2 Mg/Ml Vial (Asd Use Only)) 0.5 mg IV X1 ONE Stop: 03/03/25 18:36 Last Admin: 03/04/25 19:34 Dose: Not Given Documented By: SAMIRA Non-Admin Reason: Discontinued Methylprednisolone Sodium Succinate (Methylprednisolone Sod Succ 40 Mg Vial) 40 mg IVP X1 ONE Stop: 03/03/25 14:54 Last Admin: 03/03/25 15:05 Dose: 40 mg Documented By: ROBBIE Methylprednisolone Sodium Succinate (Methylprednisolone Sod Succ 40 Mg Vial) 60 mg IVP X1 ONE Stop: 03/04/25 11:38 Last Admin: 03/04/25 11:59 Dose: 60 mg Documented By: ESHA Metoprolol Tartrate (Metoprolol Tartrate 25 Mg Tablet) 12.5 mg PO QDAY NOMAN Stop: 04/01/25 08:59 Metoprolol Tartrate (Metoprolol Tartrate 25 Mg Tablet) 12.5 mg GT QDAY [facility] Stop: 04/01/25 08:59 Metoprolol Tartrate (Metoprolol Tartrate 25 Mg Tablet) 25 mg GT QDAY NOMAN Stop: 04/01/25 08:59 Last Admin: 03/07/25 09:08 Dose: 25 mg Documented By: Admin: 03/06/25 08:21 Dose: 25 mg Documented By: Admin: 03/05/25 08:57 Dose: 25 mg Documented By: Admin: 03/04/25 08:50 Dose: 25 mg Documented By: Admin: 03/03/25 09:11 Dose: 25 mg Documented By: [email or web address] Admin: 03/02/25 10:00 Dose: 25 mg Documented By: PADDY Midazolam HCl (Midazolam Inj 1 Mg/Ml Vial 2 Ml) 1 mg IVP X1 ONE Stop: 03/03/25 18:37 Last Admin: 03/03/25 18:45 Dose: 1 mg Documented By: Comments: Midazolam HCl (Midazolam Inj 1 Mg/Ml Vial 2 Ml) Confirm Administered Dose 2 mg .ROUTE .STK-MED ONE Stop: 03/03/25 18:40 Last Admin: 03/03/25 19:28 Dose: Not Given Documented By: Non-Admin Reason: Duplicate Medication on eMAR Morphine Sulfate (Morphine Sulf Inj 10 Mg/Ml Vial) 3 mg IVP X1 ONE Stop: 03/01/25 10:41 Last Admin: 03/01/25 11:19 Dose: 3 mg Documented By: ROSA MARIA Morphine Sulfate (Morphine Sulf Inj 10 Mg/Ml Vial) 1 mg IVP X1 ONE Stop: 03/07/25 15:05 Last Admin: 03/07/25 15:23 Dose: 1 mg Documented By: BASHIR Home Medication- Please Speak With Patient Caregiver To Have Rx Brought To [facility] 1 gm PO BID [facility]; Protocol Stop: 04/01/25 07:29 Last Admin: 03/04/25 19:34 Dose: Not Given Documented By: SAMIRA Non-Admin Reason: Discontinued Olanzapine (Olanzapine 5 Mg Tablet) 20 mg PO HS NOMAN Stop: 04/01/25 20:59 Ondansetron HCl (Ondansetron Inj 2 Mg/Ml Inj 2 Ml) 4 mg IVP X1 ONE Stop: 03/01/25 10:41 Last Admin: 03/01/25 11:18 Dose: 4 mg Documented By: ROSA MARIA Polyethylene Glycol (Polyethylene Glycol 17 Gm Packet) 17 gm GT QOD NOMAN Stop: 04/01/25 08:59 Last Admin: 03/06/25 08:39 Dose: Not Given Documented By: BASHIR Non-Admin Reason: Loose stool Admin: 03/04/25 08:49 Dose: 17 gm Documented By: Admin: 03/02/25 09:00 Dose: 17 gm Documented By: PADDY Potassium Chloride (Potassium Chloride 10% 20 Meq/15 Ml Udc) 40 meq GT X1 ONE Stop: 03/03/25 08:12 Last Admin: 03/03/25 09:08 Dose: 40 meq Documented By: ROBBIE Potassium Chloride (Potassium Chloride 10% 20 Meq/15 Ml Udc) 20 meq GT X1 ONE Stop: 03/03/25 12:01 Last Admin: 03/03/25 12:39 Dose: 20 meq Documented By: ROBBIE Potassium Chloride (Potassium Chloride 10% 20 Meq/15 Ml Udc) 40 meq GT X1 ONE Stop: 03/03/25 14:40 Last Admin: 03/03/25 15:04 Dose: 40 meq Documented By: ROBBIE Potassium Chloride (Potassium Chloride 10% 20 Meq/15 Ml Udc) 40 meq GT X1 ONE Stop: 03/06/25 07:52 Last Admin: 03/06/25 08:20 Dose: 40 meq Documented By: BASHIR Sennosides (Senna Tablet) 1 tab PO QDAY PRN; Protocol PRN Reason: constipation Stop: 03/31/25 22:47 Trazodone HCl (Trazodone Hcl 50 Mg Tablet) 50 mg PO HS PRN PRN Reason: Sleep Stop: 03/31/25 22:56 Trimethoprim/Sulfamethoxazole (Trimethoprim/Sulfa 160/800 Ds Tablet) 1 tab PO BID NOMAN Stop: 03/09/25 08:59 Venlafaxine HCl (Venlafaxine 37.5 Mg Tablet) 75 mg PO QAM NOMAN Stop: 04/01/25 08:59 Venlafaxine HCl (Venlafaxine 37.5 Mg Tablet) 150 mg PO HS [facility] Stop: 04/01/25 20:59 Zinc Sulfate (Zinc Sulfate 220 Mg Capsule) 220 mg PO QDAY [facility] Stop: 04/01/25 08:59 See above Consultations Consultation(s) initiated? (list below): No Diagnosis Shortness of Breath Differential Diagnosis: acute exacerbation of chronic obstructive airways disease, congestive heart failure, community acquired pneumonia and other (aspiration pneumonia, viral illness, UTI ) Most likely diagnosis given after review of the tests above:: Urosepsis UTI Admission Indicated Admission indicated?: not indicated Explain why admission is indicated or not indicated:: Signed out pending final disposition Admission Request Was there a request for admission?: Yes Admission Attestation Admission request attestation: Discussed case with [] from Hospitalist service regarding admission. Discussed patients ED course, exam findings, labs, and radiology results. The Hospitalist [agrees,declines] to accept the patient for admission. Disposition Plan Disposition Plan: other (specify) (Signed out pending final disposition ) Discharge Plan Plan Patient Disposition: Admit Acute Care w/in Hospital Patient condition on transfer: Stable Problem List Clinical Impression: Sepsis, UTI (urinary tract infection)
[2025-03-01 09:33] LABS: Lactate (Lactic Acid) 1.9 mMol/L (0.4-2.0)
[2025-03-01 09:37] LABS: Basophils # (Auto) 0.0 Thou/mm3 (0.0-0.2); Basophils % (Auto) 0 % (0-2.5); Eosinophils # (Auto) 0.0 Thou/mm3 (0.0-0.5); Eosinophils % (Auto) 0 % (0-10); Hematocrit 40.5 % (36.0-46.0); Hemoglobin 13.4 g/dL (12.0-16.0); Immature Granulocytes Auto 0.07 Thou/mm3 (0.00-0.00); Lymphocytes # (Auto) 0.9 Thou/mm3 (1.0-4.8); Lymphocytes % (Auto) 7 % (10-50); Mean Corpuscular HGB Conc 33.1 g/dl (31.0-37.0); Mean Corpuscular Hemoglobin 30.3 pg (25.0-35.0); Mean Corpuscular Volume 92 fL (80-100); Monocytes # (Auto) 1.2 Thou/mm3 (0.0-0.8); Monocytes % (Auto) 10 % (0-12); Neutrophils # (Auto) 10.1 Thou/mm3 (1.8-7.7); Neutrophils % (Auto) 82 % (37-80); Nucleated Red Blood Cell # 0.00 Thou/mm3 (0.00-0.00); Nucleated Red Blood Cell % 0 /100 WBC (0); Platelet Count 145 Thou/mm3 (140-440); RDW Standard Deviation 47.8 fL (36.4-46.3); Red Blood Count 4.42 Miln/mm3 (4.00-5.20); White Blood Count 12.3 Thou/mm3 (3.6-11.0)
[2025-03-01 09:47] LABS: INR 1.1 (0.9-1.3); Partial Thromboplastin Time 29.1 Seconds (22.0-36.0); Prothrombin Time 12.2 Seconds (9.0-12.2)
[2025-03-01 09:59] LABS: Alanine Aminotransferase 20 U/L (10-49); Albumin, Serum 4.1 gm/dL (3.5-5.0); Albumin/Globulin Ratio 1.5 (1.2-2.2); Alkaline Phosphatase 69 U/L (46-116); Anion Gap 5 (7-16); Aspartate Amino Transferase 20 U/L (0-34); BUN/Creatinine Ratio 29 Ratio (12-20); Bilirubin,Total 0.2 mg/dL (0.3-1.2); Blood Urea Nitrogen 20 mg/dL (9-23); Calcium 9.5 mg/dL (8.3-10.6); Calcium (Corrected) 9.5 mg/dL (8.5-10.1); Carbon Dioxide 26.6 mMol/L (20.0-31.0); Chloride 105 mMol/L (98-107); Creatinine (Component) 0.7 mg/dL (0.6-1.3); Globulin 2.7 gm/dL (2.3-3.5); Glucose 119 mg/dL (74-106); Lipase 28 U/L (12-53); Magnesium 1.9 mg/dL (1.6-2.6); Osmolality,Calculated 277 (275-295); Potassium 4.4 mMol/L (3.4-5.1); Procalcitonin 0.66 ng/ml (0.0-0.49); Sodium 137 mMol/L (136-145); Total Protein 6.8 gm/dL (5.7-8.2); Troponin I < 0.002 ng/mL (0.0-0.045); eGFR > 60 See Note
[2025-03-01] MEDS: SODIUM CHLORIDE 0.9% 1000 ML 1,000 ML 999 ML IV ×4 (10:12→21:10)
[2025-03-01] MEDS: ACETAMINOPHEN SUPP 650 MG SUPP PR (10:12)
[2025-03-01 10:27] LABS: B-Type Natriuretic Peptide 26 pg/mL (0-100)
[2025-03-01] MEDS: ONDANSETRON INJ 2 MG/ML INJ 2 ML 4 MG IVP (11:18)
[2025-03-01] MEDS: cefTRIAXone/D5w 1gm IV premix 1 GM/50 ML BAG IV (11:18)
[2025-03-01] MEDS: MORPHINE SULF INJ 10 MG/ML VIAL 3 MG IVP (11:19)
[2025-03-01 11:46] LABS: Collection Type, Urine Catheter; Squamous Epithelial Cell,Urine 0 /hpf (0-5)
[2025-03-01 12:23] LABS: Bacteria,Urine 2+; Bilirubin,Urine Negative (Negative); Blood,Urine 3+ (Negative); Color,Urine Yellow (Lt Yel-Yel); Glucose, Urine Negative (Negative); Ketones,Urine Negative (Negative); Leukocyte Esterase,Urine Positive (Negative); Nitrite,Urine Negative (Negative); PH,Urine 7.5 (5.0-7.0); Protein,Urine 1+ (Neg - Trace); RBC,Urine 202 /hpf (0-3); Specific Gravity,Urine 1.018 (1.001-1.035); Urobilinogen,Urine Negative mg/dL (0.0-1.0); WBC,Urine 306 /hpf (0-5)
[2025-03-01 12:49] LABS: Clarity,Urine Hazy (Clear/Hazy)
--- NOTE | 2025-03-01 12:54 | XR_ITS ---
Examination: CT abdomen and pelvis without contrast. Coronal 3-D reconstructions. Sagittal 2-D reconstructions. Date and time of exam:March 01, 2025 1443 hours Comparison 04/25/2023 INDICATIONS: Hematuria today CTDI: vol (mGy): 12.9 DLP: (mGycm): 687 Technique: Axial images of the abdomen have been obtained, 3 mm slice thickness Intravenous contrast material has not been administered. Low dose protocols were performed. One or more of the following dose reduction techniques were used; automated exposure control, adjustment of the mA and/or KV according to patient size, use of iterative reconstruction technique. Findings: Mild enlargement cardiac contour Atelectasis in the lower lung zones Mild hepatomegaly No gallstones No pancreatic or adrenal mass Numerous bilateral calcifications including 20 mm calculus in the right renal pelvis on the right and staghorn calculus occupying lower pole calyces left kidney and left renal pelvis, the pelvic portion measuring 18 mm Severe scarring left kidney No hydronephrosis No pericecal inflammatory change Severe lumbar levoscoliosis Urinary Shen catheter Contracted urinary bladder Gastrostomy tube satisfactory position IMPRESSION: Numerous bilateral renal calcifications however no hydronephrosis Severe scarring left kidney
--- NOTE | 2025-03-01 12:55 | XR_ITS ---
Examination: CT brain head without contrast. 2-D sagittal coronal reconstructions Date and time of exam:March 01, 2025 1439 hours Comparison July 31, 2019 INDICATIONS: Onset altered mental status today CTDI: vol (mGy):57.9 DLP: (mGycm):1218 Technique: Multiple CT axial sections of the brain have been obtained, 5 mm slice thickness. Contrast has not been administered. 2-D sagittal, coronal reconstructions have been obtained Low dose protocols were performed. One or more of the following dose reduction techniques were used; automated exposure control, adjustment of the mA and/or KV according to patient size, use of iterative reconstruction technique. Findings: No significant ventricular enlargement. Intra-axial or extra-axial hemorrhage density is not seen. No mass effect or midline shift Basal cisterns are not remarkable. Fourth ventricle is midline. Cranial vault intact. Impression: Negative for acute hemorrhage, mass effect or midline shift Advise clinical correlation and follow-up accordingly
[2025-03-01 14:24] LABS: HCG,Qualitative Serum Negative
[2025-03-01] MEDS: fentaNYL CIT INJ 50 mCg/ML AMP 2ML 100 MCG IVP (15:28)
[2025-03-01 16:55] LABS: Base Excess, Venous -2 (-3-3); Lactate (Lactic Acid) 1.5 mMol/L (0.4-2.0); O2 Saturation, Venous 89 % (96-97); PCO2, Venous 42 mmHg (36-56); PO2, Venous 54 mmHg (15-58); pH, Venous 7.36 (7.33-7.66)
--- NOTE | 2025-03-01 17:15 | PC.CM ---
Addendum entered by Yuliya Dsouza RN 03/01/25 19:13: I faxed over information to [facility]. I will hand off to ED charge nurse. I made packet and a CD. Original Note: 1700 I will start packet and make a CD. 1631 I received a referral to transfer patient for urology services for intrarenal stones.
--- NOTE | 2025-03-01 17:29 | ESCONSULT_ITS ---
HPI Data of Consult Requesting Physician: Litzy Falcon MD Attending Provider: Flex He MD Primary Care Provider: Radha Juan NP Consult Narrative History of present illness: HPI: Tamera Hansen is a 29-year-old female with a medical history significant for developmental delay, cerebral palsy, seizures, quadriplegia, and prior aspiration pneumonia. She presented to the Emergency Department via EMS from her [facility] for evaluation of shortness of breath and altered mental status. The caregiver reported a single episode of vomiting two days ago and is concerned the patient may have aspirated. According to her caregiver, the patient is typically able to engage in conversation. However, this morning she was only yelling and not responding appropriately to questions. She was found to be febrile to 102?F, hypotensive with a blood pressure of 69/50 mmHg, and had an oxygen saturation of 90% on room air. Tylenol and Ativan were administered at 08:00 AM today. Patient is unresponsive, and talks haphazardly. In house IM team was consulted in the face of pt meeting sepsis criteria in the context of UTI. cc:: cc: Exam Vital Signs Temp Pulse Resp BP Pulse Ox O2 Del Method O2 Flow Rate 99.7 F 139 H 14 104/77 94 L Nasal Cannula 4 03/01/25 12:30 03/01/25 15:38 03/01/25 15:36 03/01/25 15:36 03/01/25 15:36 03/01/25 15:36 03/01/25 15:36 Narrative Exam General: Alert and oriented x3, No apparent distress. Skin: Intact, Warm, no rashes. HEENT: Normocephalic, Atraumatic. Normal neck range of motion, Supple. Trachea midline. Respiratory: Mild wheeze on the left, upper airway noise on the right; no rales, no rhonchi Cardiovascular: Tachycardia, regular rhythm; normal S1, S2; no murmurs Abdomen: Abdomen soft, non-distended, without erythema, or lesions. Normotensive bowel sounds x4. Percussion tympanic. Palpation nontender in all four quadrants. No organomagely. No guarding or rebound present. Musculoskeletal/Extremities: No erythema, swelling, tenderness of any joints. No edema of BLE. DP pulses +2/3 b/l. Full active ROM of all four extremities. Neurologic: NEURO: Oriented x3, cranial nerves II to XII grossly intact. Cerebellar exam ([id number], bbii-ch-[id number]) intact. Muscle strength 5/5 on UE and LE b/l, Moves extremities x4. Sensation intact to gross touch along C6-T1 and L2-S1 dermatomes. No focal neurologic deficits noted Psych: Thoughts linear and responses appropriate. Results Labs 03/02/25 04:10 03/02/25 04:10 Labs: Short CBC 03/01/25 Range/Units 09:22 WBC 12.3 H (3.6-11.0) Thou/mm3 Hgb 13.4 (12.0-16.0) g/dL Hct 40.5 (36.0-46.0) % Plt Count 145 (140-440) Thou/mm3 BMP 03/01/25 09:22 Sodium 137 Potassium 4.4 Chloride 105 Carbon Dioxide 26.6 BUN 20 Creatinine 0.7 Glucose 119 H Calcium 9.5 Cardiac Enzymes 03/01/25 Range/Units 09:22 Troponin I < 0.002 (0.0-0.045) ng/mL Liver Function 03/01/25 Range/Units 09:22 Total Bilirubin 0.2 L (0.3-1.2) mg/dL AST 20 (0-34) U/L ALT 20 (10-49) U/L Alkaline Phosphatase 69 (46-116) U/L Albumin 4.1 (3.5-5.0) gm/dL Urine 03/01/25 03/01/25 Range/Units 10:12 11:34 Urine Color Cancelled Yellow Urine Clarity Cancelled Hazy Urine pH Cancelled 7.5 H Ur Specific [place] Cancelled 1.018 Urine Protein Cancelled 1+ A Urine Glucose (UA) Cancelled Negative ABG Interpretation ABG results: 03/01/25 16:48 VBG pH 7.36 VBG pCO2 42 VBG pO2 54 VBG Base Excess -2 Quality Measures Quality Measures sepsis Current suspected stage: sepsis Possible source: genitourinary Blood cultures ordered: completed in ED Antibiotic ordered: Yes Medications Home Medications and Allergies Home Medications ?Medication ?Instructions ?Recorded ?Confirmed ?Type acetaminophen 325 mg tablet 325 mg PO Q4H PRN Pain 10/1903/02/25 History (Tylenol) ascorbic acid (vitamin C) 500 mg 1,000 mg feeding tube BID 09/05/18 03/02/25 History tablet (Vitamin C) methenamine hippurate 1 gram tablet 1 g feeding tube B ID 09/05/18 03/02/25 History polyethylene glycol 3350 17 17 g feeding tube EVERYOTH ERDAY 07/31/19 03/02/25 History gram/dose oral powder (Gavilax) cholecalciferol (vitamin D3) 125 5,000 unit feeding tu be QDAY 08/07/20 03/02/25 History mcg (5,000 unit) tablet (Vitamin D3) docusate sodium 50 mg/5 mL oral 25 ml feeding tube BID 08/07/20 03/02/25 History liquid (Docu) ferrous sulfate 220 mg (44 mg 220 mg feeding tube HS 0 08/07/20 03/02/25 History iron)/5 mL oral solution ibuprofen 400 mg tablet 400 mg feeding tube Q6H PRN Pain 08/07/20 03/02/25 History levetiracetam 100 mg/mL oral 500 mg feeding tube BID 0 08/07/20 03/02/25 History solution melatonin 5 mg tablet 5 mg feeding tube HS 1 03/02/25 History metoprolol tartrate 25 mg tablet 12.5 mg feeding tube QDAY 08/07/20 03/02/25 History omeprazole 40 mg capsule,delayed 40 mg feeding tube QD AY 08/07/20 03/02/25 History release venlafaxine 75 mg tablet 75 mg feeding tube QAM 08/0703/02/25 History venlafaxine 75 mg tablet 150 mg feeding tube HS 08/0703/02/25 History zinc sulfate 50 mg zinc (220 mg) 220 mg feeding tube Q DAY 08/07/20 03/02/25 History tablet Calmoseptine topical BID PRN to prevent r edness 03/02/25 History to coccyx baclofen 20 mg tablet 20 mg feeding tube TID 03/0203/02/25 History brompheniramine-phenylephrine 1 118 ml feeding tube Q6 H PRN 03/02/25 03/02/25 History mg-2.5 mg/5 mL oral solution allergy symptoms (Children's Cold-Allergy (phenylephrine)) lamotrigine 100 mg tablet 100 mg feeding tube BID 02/0203/02/25 History (Lamictal) lamotrigine 200 mg tablet 400 mg feeding tube Q12H 03/02/25 History levetiracetam 100 mg/mL oral 1,000 mg feeding tube BID 03/02/25 03/02/25 History solution (Keppra) lorazepam 1 mg tablet 2 mg feeding tube Q4H PRN ag itation 03/02/25 03/02/25 History multivit,tx with iron 27 1 tab feeding tube QDAY 02/0203/02/25 History qu-zykvjtq-xxbfw acid 0.4 mg-minerals tablet (Thera-M) olanzapine 5 mg tablet 25 mg feeding tube HS PRN ag itation 03/02/25 03/02/25 History Allergies Allergy/AdvReac Type Severity Reaction Status Date / Time amoxicillin Allergy Intermediate Hives Verified 08/07/20 12:05 chloral hydrate Allergy Unknown Verified 11/26/16 01:55 Visit Medications Discontinued Medications Acetaminophen (Acetaminophen Supp 650 Mg Supp) 650 mg GA X1 ONE Stop: 03/01/25 09:40 Last Admin: 03/01/25 10:12 Dose: 650 mg Fentanyl Citrate (Fentanyl Cit Inj 50 Mcg/Ml Amp 2ml) 100 mcg IVP X1 ONE Stop: 03/01/25 15:02 Last Admin: 03/01/25 15:28 Dose: 100 mcg Sodium Chloride (Ns) 1,000 mls @ 999 mls/hr IV .Q1H1M ONE Stop: 03/01/25 10:39 Last Infusion: 03/01/25 11:13 Dose: Infused Sodium Chloride (Ns) 1,000 mls @ 999 mls/hr IV .Q1H1M ONE Stop: 03/01/25 11:20 Last Infusion: 03/01/25 11:28 Dose: Infused Ceftriaxone Sodium/Dextrose (Rocephin/D5w 1gm Iv Premix) 1 gm in 50 mls @ 100 mls/hr IV X1 ONE Stop: 03/01/25 11:01 Last Infusion: 03/01/25 11:48 Dose: Infused Sodium Chloride (Ns) 1,000 mls @ 999 mls/hr IV .Q1H1M ONE Stop: 03/01/25 17:00 Last Admin: 03/01/25 16:15 Dose: 999 mls/hr Lactated Ringer's (Lactated Ringers) 500 mls @ 999 mls/hr IV .Q31M ONE Stop: 03/01/25 16:59 Morphine Sulfate (Morphine Sulf Inj 10 Mg/Ml Vial) 3 mg IVP X1 ONE Stop: 03/01/25 10:41 Last Admin: 03/01/25 11:19 Dose: 3 mg Ondansetron HCl (Ondansetron Inj 2 Mg/Ml Inj 2 Ml) 4 mg IVP X1 ONE Stop: 03/01/25 10:41 Last Admin: 03/01/25 11:18 Dose: 4 mg Assessment & Plan Plan HPI: Tamera Hansen is a 29 year old female patient with history of developmental delay, cerebral palsy, seizures, quadriplegia, and previous aspiration pneumonia who presented to the ED on 03/01 BIBA from [facility] for evaluation of shortness of breath and change in mental status. In house IM team was consulted in the face of pt meeting sepsis criteria in the context of UTI. #UTI ?likely 2/2 P. mirabilis #Kidney stones ?likely 2/2 P. mirabilis #Sepsis CTAP: Numerous bilateral calcifications including 20 mm calculus in the right renal pelvis on the right and staghorn calculus occupying lower pole [place] left kidney and left renal pelvis, the pelvic portion measuring 18 mm UA in the ED was positive for signs of UTI: U WBC 51, leukocyte esterase, RBC 16, U blood 3+, however, U bacteria was negative. Of note, Patient has had similar presentations to this hospital in the past. Of note, UCx grew Proteus mirabilis on latest three hospital presentations, in January, August 2024 and June 2024. Cr 0.7 and BUN 20 wnl. No JANNIE. Anion Gap 5, and LA 1.9, wnl, both. SIRS criteria: Pt meets 2 SIRS criteria with HR 151 >90; WBC 12.3 >12; Patient has signs of UTI, UCx pending; and labile BP. These qualifications meet descriptive features of sepsis; and the following plan is recommended on the pretext of sepsis. Plan: Pt had already received 2L of IV NS in the ED. We gave another 0.5L of LR, repeated LA, VBG, and recommended urology consult or transfer to a facility with urology availability for emergent follow up. Pt already received IV ceftriaxone IV 1g x1 in ED for ABx treatment. After fluid resuscitation, repeat BP reading 117/79; recommend close watch of vital signs and ICU notification if MAP <65 or repeat LA >2. Patient on home metoprolol 12.5mg, but in the setting of labile and low BP, metoprolol has been held. #Acute encephalopathy #Anxiety CT head: Negative for acute hemorrhage, mass effect or midline shift Likely 2/2 labile BP. Plan: Recommend close watch. Care according to admitting team. Consider giving 0.5mg dose of ativan PRN for anxiety. This case was discussed with my attending physician, Dr. He, and senior resident, Dr Cobian. Shira Levy, DO PGY I Attending Provider Attestation/Addendum 29-year-old female with developmental delay quadriplegia, unable to give information about her current possibly discharged condition. This patient was brought to the emergency room for possible aspiration pneumonia. Patient is hypoxic and hypotensive. Patient also has kidney stones. I discussed this case with Dr. Falcon from ER. I recommended transfer for urology evaluation. artemio
[2025-03-01] MEDS: RINGERS LACTATED 1000 ML 500 ML 999 ML IV (17:59)
--- NOTE | 2025-03-01 18:39 | EDNOTE_ITS ---
Emergency Room Addendum Addendum Narrative: 1800: Care assumed from Dr. Falcon the previous shift emergency physician. Past medical, surgical, social and family history reviewed. Vitals and home medications reviewed. Results and treatment plan discussed. I will assume the care of the patient at this time and will follow the patient, pending urology consultation/possible transfer. Please refer to the emergency department record for history and examination from initial visit. 2052: Patient has a rectal temp of 104.0. Tylenol ordered. 2103: Discussed case with [facility]'s transfer center. Discussed patients ED course, exam findings, labs, and radiology results. Awaiting callback. Clindamycin ordered. 2137: Discussed case with Dr. Salinas from urology at [facility]. Discussed patients ED course, exam findings, labs, and radiology results. Does not feel the patient needs intervention due to not having a stone outside the kidney. If the patient has signs has signs of obstruction (worsening creatinine, BUN, or not urinating), recommends repeat CT and nephrostomy tube over stenting procedure. Recommends antibiotics. 2141: Discussed case with the resident physician, attending Dr. Hickey from Hospitalist service regarding admission. Discussed patients ED course, exam findings, labs, and radiology results. The Hospitalist agrees to accept the patient for admission.
[2025-03-01] MEDS: ACETAMINOPHEN IVPB 1,000 MG/100 ML VIAL 250 MG IV (21:08)
[2025-03-01] MEDS: CLINDAMYCIN 900MG IVPB 900 MG in PRE-MIXED 1 BAG 50 MG IV (21:30)
--- NOTE | 2025-03-01 23:55 | PD.RESCONSUL ---
HPI Data of Consult Patient: new to practice Consult date: 03/01/25 Requesting Physician: Flex He MD Admitting Provider: Flex He MD Attending Provider: Jesús Rodgers MD Primary Care Provider: Radha Juan NP Consult Narrative Reason for consult: Hypotension History of present illness: Ms. Hansen is a 29-year-old female with past medical history of developmental delay (moderate intellectual disability), cerebral palsy, seizures, spastic quadriplegia, dislocated right hip, exotropia, status post PEG tube placement on tube feeds, anxiety, chronic sinus tachycardia, history of recurrent aspiration pneumonia and recurrent UTIs who presented to [facility] emergency department on March 01, 2025 with a chief complaint of change in mentation. Patient's caregiver at bedside providing most of the history as patient is unable to provide any details in not able to engage in conversation, patient [facility] in a [facility]. Per caregiver patient has been yelling, not answering any questions, per caregiver at bedside patient has history of recurrent UTIs and they have suspicion that patient currently has underlying infection that is not at her baseline. She also reported that patient was having a fever there were also concerned that she has possibly aspirated, patient herself is unable to verbalize her pain or discomfort, though patient is uncomfortable environments, patient screams at times on the bedside today. Face is flushed, noted to be afebrile currently on examination, abdominal exam benign, questionable tenderness of the flank unreliable considering patient's underlying mentation. In the ED on presentation patient's blood pressure 93/63, heart rate 123, respiratory rate 31, temp 103.2, O2 sat 94 on 4 L nasal cannula ED labs on presentation WBC 12.3, hemoglobin 13.4, CMP showed creatinine 0.7, baseline 0.4?0.5, Pro-Mauro 0.66, lactate was negative at 1.9. Urine analysis showed bacteria 2+, leukocyte esterase positive, WBC 306, RBC 202, urine blood 3 positive, protein 1+, pH 7.5 ED imaging chest x-ray 03/01 shows suspicious of early pneumonia left base CT abdomen pelvis 03/01 shows numerous bilateral renal calcifications, no hydronephrosis. Though there is numerous bilateral calcifications including 20 mm calculus in right renal pelvis, staghorn calculus in the left lower pole calyces left kidney and left renal pelvis. CT scan of the head was negative for any acute hemorrhage mass effect or midline shift. EKG 03/01 shows sinus tachycardia. Patient was given 3 L NS bolus, Tylenol 650 per rectal, ceftriaxone, Zofran, morphine 3 mg, fentanyl push 100 mcg in the ED 03/02/2025: Patient seen examined at bedside in the emergency department, ED 16 per the request of hospitalist team for hypotension. Patient noted to be in significant distress, yelling and screaming. Medical Record Technician at bedside informed that patient does not like to be in new environment side of the penitentiary. Mean arterial pressure on right arm 66, repeated on left arm MAP 69, per bellhop they check blood pressure at home and her blood pressure ranges systolic 110-120, patient's heart rate noted to be in 140s, per bellhop patient tends to run tachycardic at heart rate 110s and is on metoprolol daily. Patient appears flushed, no tenderness noted on abdominal exam, questionable flank tenderness however unreliable considering patient's underlying acute distress. Patient's lactate from 9 AM this morning was noted to be 1.9, we requested primary team to give a 500 cc LR bolus and repeat lactate along with a VBG to rule out poor perfusion, underlying distributive shock. Ultrasound unavailable in the emergency department, IVC assessment not obtained. cc:: cc: Roberto Hickey MD Review of Systems Review of Systems ROS Unobtainable: unobtainable due to mental status Past Medical History Past Medical History NEUROLOGIC: Positive Neurological Disorders, Seizures and Cerebral Palsy; Negative Cerebrovascular Accident or Alzheimer's Disease CARDIAC: Negative Cardiac Disorders, Myocardial Infarction or Congestive Heart Failure RESPIRATORY: Positive Pneumonia and Respiratory Aspiration; Negative Chronic Obstructive Pulmonary Disease (COPD) or Asthma GASTROINTESTINAL: Positive Gastrointestinal Disorders GENITOURINARY: Negative Renal Disease REPRODUCTIVE: Negative Breast Cancer or Endometriosis MUSCULOSKELETAL: Positive Musculoskeletal Disorders; Negative Poliovirus ENT: Positive History of ENT Problems (exotropia) ENDOCRINE: Negative Diabetes Mellitus Type 1 or Diabetes Mellitus Type 2 HEMATOLOGIC: Negative Sickle Cell Disease PSYCHO/SOCIAL: Negative Recreational Drug Use or Attention Deficit Disorder OTHER HISTORY: Positive Developmental Delay; Negative Blood Transfusions, Anesthesia Reactions or Breast Cancer Surgical History SURGICAL: Positive Joint Replacement Social History SMOKING STATUS: Unknown if ever smoked SUBSTANCE USE: does not use Past Medical History Comments PMH COMMENT: PMH: developmental delay (moderate intellectual disability), cerebral palsy, seizures, spastic quadriplegia, prior aspiration pneumonia, dislocated right hip, exotropia, and recurrent UTIs PSH: femur implant, s/p gastrotomy tube placement Medications: Bactrim, venlafaxine, trazodone, Gavilax, Protonix, Zyprexa, metoprolol, methenamine hippurate, levetiracetam, melatonin, ferrous sulfate, vitamin D3, vitamin C, acetaminophen Allergies: Chloral hydrate, amoxicillin FH: None SH: Lives at [facility], bellhop is Aliya Bright. Conserved by the state. Exam Vital Signs Temp Pulse Resp BP Pulse Ox O2 Del Method O2 Flow Rate 97.6 F 120 H 20 138/67 H 94 L Nasal Cannula 3 03/02/25 07:47 03/02/25 07:47 03/02/25 07:47 03/02/25 07:47 03/02/25 07:47 03/02/25 07:47 03/02/25 07:47 Narrative Exam Physical Exam General: Awake and in significant distress, moaning, yelling. HEENT: Normocephalic, atraumatic, mucous membranes moist. Exotropia noted. Heart: Sinus tachycardia, no murmurs. Lungs: Minimal bilateral crackles, tachypneic Abdomen: Soft, nondistended, nontender, positive bowel sounds. ?No guarding or rebound tenderness. Neurologic: Awake, unable to assess neurological system due to underlying mentation, however patient has some gross movement in all 4 extremities which are contracted. Extremities: No edema. Contracted extremities, scar noted on right thigh. Skin: Flushed face, warm to touch, no signs of poor perfusion. Results Labs 03/02/25 04:10 03/02/25 04:10 Labs: Short CBC 03/01/25 03/02/25 Range/Units 09:22 04:10 WBC 12.3 H 7.8 (3.6-11.0) Thou/mm3 Hgb 13.4 10.8 L D (12.0-16.0) g/dL Hct 40.5 33.9 L (36.0-46.0) % Plt Count 145 109 L D (140-440) Thou/mm3 BMP 03/01/25 03/02/25 09:22 04:10 Sodium 137 145 Potassium 4.4 3.2 L D Chloride 105 112 H Carbon Dioxide 26.6 22.6 BUN 20 12 Creatinine 0.7 0.5 L Glucose 119 H 79 Calcium 9.5 7.9 L D Cardiac Enzymes 03/01/25 Range/Units 09:22 Troponin I < 0.002 (0.0-0.045) ng/mL Liver Function 03/01/25 03/02/25 Range/Units 09:22 04:10 Total Bilirubin 0.2 L 0.4 (0.3-1.2) mg/dL AST 20 17 (0-34) U/L ALT 20 16 (10-49) U/L Alkaline Phosphatase 69 55 D (46-116) U/L Albumin 4.1 3.2 L D (3.5-5.0) gm/dL Urine 03/01/25 03/01/25 Range/Units 10:12 11:34 Urine Color Cancelled Yellow Urine Clarity Cancelled Hazy Urine pH Cancelled 7.5 H Ur Specific [place] Cancelled 1.018 Urine Protein Cancelled 1+ A Urine Glucose (UA) Cancelled Negative ABG Interpretation ABG results: 03/01/25 16:48 VBG pH 7.36 VBG pCO2 42 VBG pO2 54 VBG Base Excess -2 Quality Measures Quality Measures sepsis Current suspected stage: sepsis Possible source: genitourinary Blood cultures ordered: completed in ED Antibiotic ordered: Yes Medications Home Medications and Allergies Home Medications ?Medication ?Instructions ?Recorded ?Confirmed ?Type acetaminophen 325 mg tablet 325 mg PO Q4H PRN Pain 09/05/18 03/02/25 History (Tylenol) ascorbic acid (vitamin C) 500 mg 1,000 mg feeding tube BID 09/05/18 03/02/25 History tablet (Vitamin C) methenamine hippurate 1 gram tablet 1 g feeding tube BID 09/05/18 03/02/25 History polyethylene glycol 3350 17 17 g feeding tube EVERYOTHERDAY 07/31/19 03/02/25 History gram/dose oral powder (Gavilax) cholecalciferol (vitamin D3) 125 5,000 unit feeding tube QDAY 08/07/20 03/02/25 History mcg (5,000 unit) tablet (Vitamin D3) docusate sodium 50 mg/5 mL oral 25 ml feeding tube BID 08/07/20 03/02/25 History liquid (Docu) ferrous sulfate 220 mg (44 mg 220 mg feeding tube HS 08/07/20 03/02/25 History iron)/5 mL oral solution ibuprofen 400 mg tablet 400 mg feeding tube Q6H PRN Pain 08/07/20 03/02/25 History levetiracetam 100 mg/mL oral 500 mg feeding tube BID 08/07/20 03/02/25 History solution melatonin 5 mg tablet 5 mg feeding tube HS 08/07/20 03/02/25 History metoprolol tartrate 25 mg tablet 12.5 mg feeding tube QDAY 08/07/20 03/02/25 History omeprazole 40 mg capsule,delayed 40 mg feeding tube QDAY 08/07/20 03/02/25 History release venlafaxine 75 mg tablet 75 mg feeding tube QAM 08/07/20 03/02/25 History venlafaxine 75 mg tablet 150 mg feeding tube HS 08/07/20 03/02/25 History zinc sulfate 50 mg zinc (220 mg) 220 mg feeding tube QDAY 08/07/20 03/02/25 History tablet Calmoseptine topical BID PRN to prevent redness 03/02/25 History to coccyx baclofen 20 mg tablet 20 mg feeding tube TID 03/02/25 03/02/25 History brompheniramine-phenylephrine 1 118 ml feeding tube Q6H PRN 03/02/25 03/02/25 History mg-2.5 mg/5 mL oral solution allergy symptoms (Children's Cold-Allergy (phenylephrine)) lamotrigine 100 mg tablet 100 mg feeding tube BID 03/02/25 03/02/25 History (Lamictal) lamotrigine 200 mg tablet 400 mg feeding tube Q12H 03/02/25 03/02/25 History levetiracetam 100 mg/mL oral 1,000 mg feeding tube BID 03/02/25 03/02/25 History solution (Keppra) lorazepam 1 mg tablet 2 mg feeding tube Q4H PRN agitation 03/02/25 03/02/25 History multivit,tx with iron 27 1 tab feeding tube QDAY 03/02/25 03/02/25 History oi-yltbdjc-wdhye acid 0.4 mg-minerals tablet (Thera-M) olanzapine 5 mg tablet 25 mg feeding tube HS PRN agitation 03/02/25 03/02/25 History Allergies Allergy/AdvReac Type Severity Reaction Status Date / Time amoxicillin Allergy Intermediate Hives Verified 08/07/20 12:05 chloral hydrate Allergy Unknown Verified 11/26/16 01:55 Visit Medications Ascorbic Acid (Ascorbic Acid 250 Mg Tablet) 1,000 mg GT BID NOMAN Stop: 04/01/25 08:59 Balsam Schulter/[place] Oil (Balsam Schulter/[place] Oil (Venelex) 60 Gm Tube) 0 gm TOP TID NOMAN Stop: 04/01/25 05:59 Last Admin: 03/02/25 05:59 Dose: 1 applicatio Piperacillin/Tazobactam/Dextrose (Zosyn) 3.375 gm in 50 mls @ 12.5 mls/hr IV Q8HR NOMAN; Protocol Stop: 03/09/25 05:59 Last Admin: 03/02/25 05:59 Dose: 12.5 mls/hr Acetaminophen (Ofirmev Inj) 1,000 mg in 100 mls @ 250 mls/hr IV Q6HR PRN PRN Reason: Pain 1-3 or Fever>100.1 Last Admin: 03/02/25 01:46 Dose: 250 mls/hr Lansoprazole (Lansoprazole 30 Mg Tab.Rap.Dr) 30 mg GT BID NOMAN Stop: 04/01/25 08:59 Levalbuterol HCl (Levalbuterol Rt 0.63 Mg/3 Ml Nebu) 0.63 mg INH Q6HRRT NOMAN Stop: 04/01/25 01:59 Last Admin: 03/02/25 06:25 Dose: 0.63 mg Levetiracetam (Levetiracetam Liqd 500 Mg/5 Ml Udc) 500 mg GT BID NOMAN Stop: 04/01/25 08:59 Melatonin (Melatonin 3 Mg Tablet) 6 mg GT HS NOMAN; Protocol Stop: 04/01/25 20:59 Multivitamins/Minerals (Multivitamin 15 Ml Udc) 15 ml GT QDAY NOMAN Stop: 04/01/25 08:59 Home Medication- Please Speak With Patient Caregiver To Have Rx Brought To [facility] 1 gm PO BID NOMAN; Protocol Stop: 04/01/25 07:29 Olanzapine (Olanzapine 5 Mg Tablet) 20 mg GT HS NOMAN Stop: 04/01/25 20:59 Ondansetron HCl (Ondansetron Inj 2 Mg/Ml Inj 2 Ml) 4 mg IVP Q6H PRN; Protocol PRN Reason: NAUSEA OR VOMITING Stop: 03/31/25 22:47 Polyethylene Glycol (Polyethylene Glycol 17 Gm Packet) 17 gm GT QOD NOMAN Stop: 04/01/25 08:59 Sennosides (Senna Tablet) 1 tab GT QDAY PRN; Protocol PRN Reason: constipation Stop: 03/31/25 22:47 Trazodone HCl (Trazodone Hcl 50 Mg Tablet) 50 mg GT HS PRN PRN Reason: Sleep Stop: 03/31/25 22:56 Last Admin: 03/02/25 02:38 Dose: 50 mg Venlafaxine HCl (Venlafaxine 37.5 Mg Tablet) 75 mg GT QAM NOMAN Stop: 04/01/25 08:59 Venlafaxine HCl (Venlafaxine 37.5 Mg Tablet) 150 mg GT HS NOMAN Stop: 04/01/25 20:59 Vitamin D (Cholecalciferol (Vitamin D3) 1,000 Iu Tablet) 5,000 iu GT QDAY NOMAN Stop: 04/01/25 08:59 Zinc Sulfate (Zinc Sulfate 220 Mg Capsule) 220 mg GT QDAY NOMAN Stop: 04/01/25 08:59 Discontinued Medications Acetaminophen (Acetaminophen Supp 650 Mg Supp) 650 mg RI X1 ONE Stop: 03/01/25 09:40 Last Admin: 03/01/25 10:12 Dose: 650 mg Acetaminophen (Acetaminophen 325 Mg Tablet) 650 mg PO Q6H PRN PRN Reason: PAIN SCALE 1-3 (mild Stop: 03/31/25 22:47 Ascorbic Acid (Ascorbic Acid 250 Mg Tablet) 1,000 mg PO BID NOMAN Stop: 03/31/25 22:59 Last Admin: 03/02/25 00:14 Dose: Not Given Fentanyl Citrate (Fentanyl Cit Inj 50 Mcg/Ml Amp 2ml) 100 mcg IVP X1 ONE Stop: 03/01/25 15:02 Last Admin: 03/01/25 15:28 Dose: 100 mcg Sodium Chloride (Ns) 1,000 mls @ 999 mls/hr IV .Q1H1M ONE Stop: 03/01/25 10:39 Last Infusion: 03/01/25 11:13 Dose: Infused Sodium Chloride (Ns) 1,000 mls @ 999 mls/hr IV .Q1H1M ONE Stop: 03/01/25 11:20 Last Infusion: 03/01/25 11:28 Dose: Infused Ceftriaxone Sodium/Dextrose (Rocephin/D5w 1gm Iv Premix) 1 gm in 50 mls @ 100 mls/hr IV X1 ONE Stop: 03/01/25 11:01 Last Infusion: 03/01/25 11:48 Dose: Infused Sodium Chloride (Ns) 1,000 mls @ 999 mls/hr IV .Q1H1M ONE Stop: 03/01/25 17:00 Last Infusion: 03/01/25 18:00 Dose: Infused Lactated Ringer's (Lactated Ringers) 500 mls @ 999 mls/hr IV .Q31M ONE Stop: 03/01/25 18:30 Last Infusion: 03/01/25 19:34 Dose: Infused Acetaminophen (Ofirmev Inj) 1,000 mg in 100 mls @ 250 mls/hr IV Q6HR NOMAN Stop: 03/02/25 12:23 Last Admin: 03/02/25 02:30 Dose: Not Given Sodium Chloride (Ns) 1,000 mls @ 999 mls/hr IV .Q1H1M ONE Stop: 03/01/25 21:53 Last Infusion: 03/01/25 23:23 Dose: Infused Clindamycin Phosphate 900 mg/ (IV Miscellaneous Supplies) 50 mls @ 50 mls/hr IV X1 ONE Stop: 03/01/25 22:07 Last Infusion: 03/01/25 23:24 Dose: Infused Piperacillin Sod/Tazobactam (Sod 4.5 gm/ Sodium Chloride) 100 mls @ 200 mls/hr IV X1 ONE Stop: 03/02/25 00:14 Last Admin: 03/02/25 00:42 Dose: 200 mls/hr Levetiracetam (Levetiracetam Liqd 500 Mg/5 Ml Udc) 500 mg PO BID NOMAN Stop: 03/31/25 22:59 Last Admin: 03/02/25 00:14 Dose: Not Given Metoprolol Tartrate (Metoprolol Tartrate 25 Mg Tablet) 12.5 mg PO QDAY NOMAN Stop: 04/01/25 08:59 Metoprolol Tartrate (Metoprolol Tartrate 25 Mg Tablet) 12.5 mg GT QDAY NOMAN Stop: 04/01/25 08:59 Morphine Sulfate (Morphine Sulf Inj 10 Mg/Ml Vial) 3 mg IVP X1 ONE Stop: 03/01/25 10:41 Last Admin: 03/01/25 11:19 Dose: 3 mg Olanzapine (Olanzapine 5 Mg Tablet) 20 mg PO HS NOMAN Stop: 04/01/25 20:59 Ondansetron HCl (Ondansetron Inj 2 Mg/Ml Inj 2 Ml) 4 mg IVP X1 ONE Stop: 03/01/25 10:41 Last Admin: 03/01/25 11:18 Dose: 4 mg Sennosides (Senna Tablet) 1 tab PO QDAY PRN; Protocol PRN Reason: constipation Stop: 03/31/25 22:47 Trazodone HCl (Trazodone Hcl 50 Mg Tablet) 50 mg PO HS PRN PRN Reason: Sleep Stop: 03/31/25 22:56 Trimethoprim/Sulfamethoxazole (Trimethoprim/Sulfa 160/800 Ds Tablet) 1 tab PO BID NOMAN Stop: 03/09/25 08:59 Venlafaxine HCl (Venlafaxine 37.5 Mg Tablet) 75 mg PO QAM NOMAN Stop: 04/01/25 08:59 Venlafaxine HCl (Venlafaxine 37.5 Mg Tablet) 150 mg PO HS NOMAN Stop: 04/01/25 20:59 Zinc Sulfate (Zinc Sulfate 220 Mg Capsule) 220 mg PO QDAY NOMAN Stop: 04/01/25 08:59 Assessment & Plan Plan Assessment and plan: Summary: Ms. Hansen is a 29-year-old female with past medical history of developmental delay (moderate intellectual disability), cerebral palsy, seizures, spastic quadriplegia, dislocated right hip, exotropia, status post PEG tube placement on tube feeds, anxiety, chronic sinus tachycardia, history of recurrent aspiration pneumonia and recurrent UTIs who presented to [facility] emergency department on March 01, 2025 with a chief complaint of change in mentation. Patient was seen and evaluated in the emergency department by primary team, requested consultation due to hypotension and possible ICU upgrade. #Hypotension Noted to be in significant distress, yelling and screaming. Medical Record Technician at bedside informed that patient does not like to be in new environment side of [facility]. Mean arterial pressure on right arm 66, repeated on left arm MAP 69, per bellhop they check blood pressure at home and her blood pressure ranges systolic 110-120, patient's heart rate noted to be in 140s, per bellhop patient tends to run tachycardic at heart rate 110s and is on metoprolol daily. Patient appears flushed, no tenderness noted on abdominal exam, questionable flank tenderness however unreliable considering patient's underlying acute distress. Patient's lactate from 9 AM this morning was noted to be 1.9. Recommendations: - 500 cc LR bolus x1 - Repeat lactate - Obtain VBG - Consult urology, patient does have multiple renal stones along with staghorn calculi - Ultrasound unavailable in the emergency department, IVC assessment not obtained. - Consult ICU again as needed #SIRS positive #Complicated UTI #Bilateral nephrolithiasis, multiple renal calculi #Staghorn calculi left kidney #?Aspiration pneumonia #Elevated Pro-Mauro #Cerebral palsy #Acute encephalopathy #Agitation, anxiety #Developmental disability #Seizures #Spastic quadriplegia #GERD #Status post PEG tube #Leukocytosis #Chronic sinus tachycardia - Resume home medications as needed - Management as per consulting hospitalist team, ED physician Case discussed with Attending Physician Dr. Ana Maria Cabrera MD Internal Medicine PGY-2 Disclaimer: This note was dictated by speech recognition. Minor errors in assistant case manager may be present due to voice recognition software. Attending Provider Attestation/Addendum Patient seen and examined with above resident, Melly Cabrera MD. I agree with the findings, assessment, and plan of care as documented except for any differences below. Patient is difficult to discern if tachycardia is related to underlying hypovolemia or sepsis. She has significant history of agitation in the setting of her neurologic developmental delay secondary to cerebral palsy. Patient has benign exam with no rebound or guarding. Patient was given adequate fluid resuscitation and will likely benefit from additional fluids at this point. Patient without urinary output spontaneously though Shen catheter was placed briefly and removed at the discretion of the patient's caregiver who knows that this typically does aggravate her. Patient will need serial testing with lactate which appears to be negative. Would also check VBG at this point to ensure the patient is adequately ventilating in case there is underlying metabolic process. Patient continued on antibiotics per ED/medicine team. Patient's hypotension is atypical for her but will likely improve with appropriate therapy for her underlying sepsis. Follow-up cultures to help narrow antibiotics. ICU team remains available should the patient require transfer to higher level of care. If serial blood work shows continued stability/improvement, would suggest resumption of her home meds except for metoprolol which is likely the culprit and limiting her ability to respond to underlying precipitant and worsening hypotension. This can be reversed with the use of calcium or glucagon though likely will continue just supportive care and allow it to metabolize on its own. I remain available by telephone in case of any further needs. Discussed with medicine team at the bedside.
[2025-03-02] VITALS (15 sets, daily range): BP systolic 107–138; BP diastolic 58–88; PULSE 87–128; RESP 20–91; TEMP 36.3–38.8; O2SAT 94–100; BMI 26.1; BMI 25.9
[2025-03-02] MEDS: PIPER/TAZO INJ 4.5 GM in SODIUM CHLORIDE 0.9% (POP) 100 ML IV (00:42)
--- NOTE | 2025-03-02 00:55 | ESHP_ITS ---
<Statement entered by Roberto Hickey MD - 03/02/25 07:15> I have discussed and was present for the essential components of the history, physical examination, diagnosis, and treatment plan with the resident. I agree with the patient's care as documented by the resident and amended herein by me. Roberto Hickey MD FACP. Documentation for date of: 03/01/25 HPI History of Present Illness History of present illness: Tamera Hansen is a 29-year-old female with a medical history significant for developmental delay (moderate intellectual disability), cerebral palsy, seizures, spastic quadriplegia, prior aspiration pneumonia, dislocated right hip, exotropia, s/p gastrotomy tube placement, and recurrent UTIs who presented to the Emergency Department via EMS from her residential ([facility]) for evaluation of shortness of breath and altered mental status. Per day team's consultation note, the caregiver reported a single episode of vomiting two days ago and is concerned the patient may have aspirated. According to her caregiver, the patient is typically able to engage in conversation. However, this morning she was only yelling and not responding appropriately to questions. She was found to be febrile to 102?F, hypotensive with a blood pressure of 69/50 mmHg, and had an oxygen saturation of 90% on room air. Tylenol and Ativan were administered at 08:00 AM today. Patient is unresponsive, and talks haphazardly. During this policy writer sales's interview, patient's property caretaker reported that the patient began having a fever yesterday that was unable to be controlled. Today, property caretaker states that she started to look worse in that she was more lethargic and that her breathing seemed to worsen. Her fever also increased and the patient seemed to be not herself . Car Stower says that the patient is unable to verbalize pain or discomfort and also that she tends to scream and curse while in the hospital as she hates being there. In the ED, vitals showed: BP 93/63 HR 123 RR 31 Temp 103.2 SpO2 94% on 4 L nasal cannula ED Course: CBC showed leukocytosis with neutrophilic predominance. CMP was unremarkable. UA showed increased alkalinity, 2+ bacteria, 3+ blood, 1+ protein, RBC 202, WBC 306, and was positive for leukocyte esterase. Imaging: Chest x-ray was suspicious for early pneumonia of the left base. EKG showed sinus tachycardia with incomplete right bundle branch block, nonspecific ST elevation, and prolonged QTc 480. CTAP showed numerous bilateral renal calcifications without hydronephrosis and severe scarring of the left kidney. Head CT was unremarkable. In the ED, patient was given 4 L NS bolus, 500 mL LR bolus, Tylenol, Zofran, morphine, fentanyl, clindamycin, Zosyn, and ceftriaxone. Patient was admitted for the work-up and management of sepsis r/o 2/2 UTI. Review of Systems Review of Systems Narrative Review of Systems: (per property caretaker Aliya Bright) General: Endorses fever. Endorses lethargy. Denies chills HEENT: Denies congestion or sore throat Heart: Denies chest pain or palpitations Lungs: Endorses dyspnea and shortness of breath. Endorses productive cough. Abdomen: Endorses nausea and vomiting. Denies abdominal pain, constipation, diarrhea, or blood in stool Genitourinary: Denies frequency, urgency, dysuria, or hematuria Neurology: Endorses confusion. Denies any changes in vision, weakness or difficulty speaking Review of systems otherwise negative except what is mentioned above. Past Medical History Past Medical History NEUROLOGIC: Positive Neurological Disorders, Seizures and Cerebral Palsy; Negative Cerebrovascular Accident or Alzheimer's Disease CARDIAC: Negative Cardiac Disorders, Myocardial Infarction or Congestive Heart Failure RESPIRATORY: Positive Pneumonia and Respiratory Aspiration; Negative Chronic Obstructive Pulmonary Disease (COPD) or Asthma GASTROINTESTINAL: Positive Gastrointestinal Disorders GENITOURINARY: Negative Renal Disease REPRODUCTIVE: Negative Breast Cancer or Endometriosis MUSCULOSKELETAL: Positive Musculoskeletal Disorders; Negative Poliovirus ENT: Positive History of ENT Problems (exotropia) ENDOCRINE: Negative Diabetes Mellitus Type 1 or Diabetes Mellitus Type 2 HEMATOLOGIC: Negative Sickle Cell Disease PSYCHO/SOCIAL: Negative Recreational Drug Use or Attention Deficit Disorder OTHER HISTORY: Positive Developmental Delay; Negative Blood Transfusions, Anesthesia Reactions or Breast Cancer Surgical History SURGICAL: Positive Joint Replacement Social History SMOKING STATUS: Unknown if ever smoked SUBSTANCE USE: does not use Past Medical History Comments PMH COMMENT: PMH: developmental delay (moderate intellectual disability), cerebral palsy, seizures, spastic quadriplegia, prior aspiration pneumonia, dislocated right hip, exotropia, and recurrent UTIs PSH: femur implant, s/p gastrotomy tube placement Medications: Bactrim, venlafaxine, trazodone, Gavilax, Protonix, Zyprexa, metoprolol, methenamine hippurate, levetiracetam, melatonin, ferrous sulfate, vitamin D3, vitamin C, acetaminophen Allergies: Chloral hydrate, amoxicillin FH: None SH: Lives at [facility], property caretaker is Aliya Bright Exam Vital Signs Temp Pulse Resp BP Pulse Ox O2 Del Method O2 Flow Rate 104.0 F H 137 H 20 127/71 95 Room Air 4 03/01/25 20:53 03/01/25 20:53 03/01/25 20:53 03/01/25 20:53 03/01/25 20:53 03/01/25 20:53 03/01/25 18:42 Narrative Exam Physical Exam: General: Sleeping, ill-appearing. No acute distress. Skin: Hot, dry, intact, no obvious rash. Head: Normocephalic, atraumatic. Eye: Normal conjunctiva, PERRL. Throat: Oral mucosa moist. No obvious lesions in oropharynx. Cardiovascular: Tachycardic rate and normal rhythm, no murmur, +S1/S2. Respiratory: Tachypneic. Shallow breaths with diffuse crackles. No wheezing. Gastrointestinal: Midline abdominal raised cicatrix. Gastrotomy tube at left lower quadrant. Soft, nontender, non-distended. No guarding or rebound tenderness. Extremities: Spasticity and contractures noted in all 4 extremities. No edema, no cyanosis, no clubbing. 2+ radial pulse bilaterally, 2+ posterior tibial pulse bilaterally. Neuro: Could not assess as patient was somnolent Psychiatric: Could not assess as patient was somnolent Results: Labs 03/01/25 09:22 03/01/25 09:22 Labs: Short CBC 03/01/25 Range/Units 09:22 WBC 12.3 H (3.6-11.0) Thou/mm3 Hgb 13.4 (12.0-16.0) g/dL Hct 40.5 (36.0-46.0) % Plt Count 145 (140-440) Thou/mm3 BMP 03/01/25 09:22 Sodium 137 Potassium 4.4 Chloride 105 Carbon Dioxide 26.6 BUN 20 Creatinine 0.7 Glucose 119 H Calcium 9.5 Cardiac Enzymes 03/01/25 Range/Units 09:22 Troponin I < 0.002 (0.0-0.045) ng/mL Liver Function 03/01/25 Range/Units 09:22 Total Bilirubin 0.2 L (0.3-1.2) mg/dL AST 20 (0-34) U/L ALT 20 (10-49) U/L Alkaline Phosphatase 69 (46-116) U/L Albumin 4.1 (3.5-5.0) gm/dL Urine 03/01/25 03/01/25 Range/Units 10:12 11:34 Urine Color Cancelled Yellow Urine Clarity Cancelled Hazy Urine pH Cancelled 7.5 H Ur Specific [place] Cancelled 1.018 Urine Protein Cancelled 1+ A Urine Glucose (UA) Cancelled Negative ABG Interpretation ABG results: 03/01/25 16:48 VBG pH 7.36 VBG pCO2 42 VBG pO2 54 VBG Base Excess -2 Quality Measures Quality Measures sepsis Current suspected stage: sepsis Possible source: genitourinary Blood cultures ordered: completed in ED Antibiotic ordered: Yes Medications Home Medications and Allergies Home Medications ?Medication ?Instructions ?Recorded ?Confirmed ?Type acetaminophen 325 mg tablet 325 mg PO Q4H PRN Pain 10/1908/07/20 History (Tylenol) ascorbic acid (vitamin C) 500 mg 1,000 mg feeding tube BID 09/05/18 08/07/20 History tablet (Vitamin C) methenamine hippurate 1 gram tablet 1 g feeding tube B ID 09/05/18 08/07/20 History trazodone 50 mg tablet 50 mg feeding tube HS PRN Sl eep 09/05/18 08/07/20 History polyethylene glycol 3350 17 17 g feeding tube EVERYOTH ERDAY 07/31/19 08/07/20 History gram/dose oral powder (Gavilax) balsam andres-castor oil topical 1 applic topical TID 08/07/20 History ointment (Venelex topical ointment) cholecalciferol (vitamin D3) 125 5,000 unit feeding tu be QDAY 08/07/20 08/07/20 History mcg (5,000 unit) tablet (Vitamin D3) docusate sodium 50 mg/5 mL oral 25 ml feeding tube BID 08/07/20 08/07/20 History liquid (Docu) ferrous sulfate 220 mg (44 mg 220 mg feeding tube HS 0 08/07/20 08/07/20 History iron)/5 mL oral solution ibuprofen 400 mg tablet 400 mg feeding tube Q6H PRN Pain 08/07/20 08/07/20 History levetiracetam 100 mg/mL oral 500 mg feeding tube BID 0 08/07/20 08/07/20 History solution melatonin 5 mg tablet 5 mg feeding tube HS 1 08/07/20 History metoprolol tartrate 25 mg tablet 12.5 mg feeding tube QDAY 08/07/20 08/07/20 History multivitamin,tx-minerals 1 tab feeding tube QDAY 12/2108/07/20 History olanzapine 20 mg tablet 20 mg PO HS 08/07/20 1 History omeprazole 40 mg capsule,delayed 40 mg feeding tube QD AY 08/07/20 08/07/20 History release ranitidine HCl 150 mg tablet 150 mg feeding tube QAM 0 08/07/20 08/07/20 History venlafaxine 75 mg tablet 75 mg feeding tube QAM 08/0708/07/20 History venlafaxine 75 mg tablet 150 mg feeding tube HS 08/0708/07/20 History zinc sulfate 50 mg zinc (220 mg) 220 mg feeding tube Q DAY 08/07/20 08/07/20 History tablet Allergies Allergy/AdvReac Type Severity Reaction Status Date / Time amoxicillin Allergy Intermediate Hives Verified 08/07/20 12:05 chloral hydrate Allergy Unknown Verified 11/26/16 01:55 Visit Medications Ascorbic Acid (Ascorbic Acid 250 Mg Tablet) 1,000 mg GT BID NOMAN Stop: 04/01/25 08:59 Balsam [place] Oil (Balsam [place]undy/[place] Oil (Venelex) 60 Gm Tube) 0 gm TOP TID NOMAN Stop: 04/01/25 05:59 Acetaminophen (Ofirmev Inj) 1,000 mg in 100 mls @ 250 mls/hr IV Q6HR NOMAN Stop: 03/02/25 12:23 Last Infusion: 03/01/25 21:35 Dose: Infused Piperacillin Sod/Tazobactam (Sod 4.5 gm/ Sodium Chloride) 100 mls @ 200 mls/hr IV Q6HR NOMAN Stop: 03/08/25 22:52 Lansoprazole (Lansoprazole 30 Mg Tab.Rap.Dr) 30 mg GT BID NOMAN Stop: 04/01/25 08:59 Levetiracetam (Levetiracetam Liqd 500 Mg/5 Ml Udc) 500 mg GT BID NOMAN Stop: 04/01/25 08:59 Metoprolol Tartrate (Metoprolol Tartrate 25 Mg Tablet) 12.5 mg GT QDAY NOMAN Stop: 04/01/25 08:59 Non-Formulary Medication (Melatonin) 5 mg FEED TUBE HS NOMAN Stop: 04/01/25 20:59 Non-Formulary Medication (Methenamine Hippurate) 1 gm FEED TUBE BID NOMAN Stop: 03/31/25 22:59 Non-Formulary Medication (Multivitamin,Tx-Minerals) 1 tab FEED TUBE QDAY NOMAN Stop: 04/01/25 08:59 Olanzapine (Olanzapine 5 Mg Tablet) 20 mg GT HS NOMAN Stop: 04/01/25 20:59 Ondansetron HCl (Ondansetron Inj 2 Mg/Ml Inj 2 Ml) 4 mg IVP Q6H PRN; Protocol PRN Reason: NAUSEA OR VOMITING Stop: 03/31/25 22:47 Polyethylene Glycol (Polyethylene Glycol 17 Gm Packet) 17 gm GT QOD NOMAN Stop: 04/01/25 08:59 Sennosides (Senna Tablet) 1 tab GT QDAY PRN; Protocol PRN Reason: constipation Stop: 03/31/25 22:47 Trazodone HCl (Trazodone Hcl 50 Mg Tablet) 50 mg GT HS PRN PRN Reason: Sleep Stop: 03/31/25 22:56 Venlafaxine HCl (Venlafaxine 37.5 Mg Tablet) 75 mg GT QAM NOMAN Stop: 04/01/25 08:59 Venlafaxine HCl (Venlafaxine 37.5 Mg Tablet) 150 mg GT HS NOMAN Stop: 04/01/25 20:59 Vitamin D (Cholecalciferol (Vitamin D3) 1,000 Iu Tablet) 5,000 iu GT QDAY NOMAN Stop: 04/01/25 08:59 Zinc Sulfate (Zinc Sulfate 220 Mg Capsule) 220 mg GT QDAY NOMAN Stop: 04/01/25 08:59 Discontinued Medications Acetaminophen (Acetaminophen Supp 650 Mg Supp) 650 mg IA X1 ONE Stop: 03/01/25 09:40 Last Admin: 03/01/25 10:12 Dose: 650 mg Acetaminophen (Acetaminophen 325 Mg Tablet) 650 mg PO Q6H PRN PRN Reason: PAIN SCALE 1-3 (mild Stop: 03/31/25 22:47 Ascorbic Acid (Ascorbic Acid 250 Mg Tablet) 1,000 mg PO BID NOMAN Stop: 03/31/25 22:59 Last Admin: 03/02/25 00:14 Dose: Not Given Fentanyl Citrate (Fentanyl Cit Inj 50 Mcg/Ml Amp 2ml) 100 mcg IVP X1 ONE Stop: 03/01/25 15:02 Last Admin: 03/01/25 15:28 Dose: 100 mcg Sodium Chloride (Ns) 1,000 mls @ 999 mls/hr IV .Q1H1M ONE Stop: 03/01/25 10:39 Last Infusion: 03/01/25 11:13 Dose: Infused Sodium Chloride (Ns) 1,000 mls @ 999 mls/hr IV .Q1H1M ONE Stop: 03/01/25 11:20 Last Infusion: 03/01/25 11:28 Dose: Infused Ceftriaxone Sodium/Dextrose (Rocephin/D5w 1gm Iv Premix) 1 gm in 50 mls @ 100 mls/hr IV X1 ONE Stop: 03/01/25 11:01 Last Infusion: 03/01/25 11:48 Dose: Infused Sodium Chloride (Ns) 1,000 mls @ 999 mls/hr IV .Q1H1M ONE Stop: 03/01/25 17:00 Last Infusion: 03/01/25 18:00 Dose: Infused Lactated Ringer's (Lactated Ringers) 500 mls @ 999 mls/hr IV .Q31M ONE Stop: 03/01/25 18:30 Last Infusion: 03/01/25 19:34 Dose: Infused Sodium Chloride (Ns) 1,000 mls @ 999 mls/hr IV .Q1H1M ONE Stop: 03/01/25 21:53 Last Infusion: 03/01/25 23:23 Dose: Infused Clindamycin Phosphate 900 mg/ (IV Miscellaneous Supplies) 50 mls @ 50 mls/hr IV X1 ONE Stop: 03/01/25 22:07 Last Infusion: 03/01/25 23:24 Dose: Infused Piperacillin Sod/Tazobactam (Sod 4.5 gm/ Sodium Chloride) 100 mls @ 200 mls/hr IV X1 ONE Stop: 03/02/25 00:14 Last Admin: 03/02/25 00:42 Dose: 200 mls/hr Levetiracetam (Levetiracetam Liqd 500 Mg/5 Ml Udc) 500 mg PO BID NOMAN Stop: 03/31/25 22:59 Last Admin: 03/02/25 00:14 Dose: Not Given Metoprolol Tartrate (Metoprolol Tartrate 25 Mg Tablet) 12.5 mg PO QDAY NOMAN Stop: 04/01/25 08:59 Morphine Sulfate (Morphine Sulf Inj 10 Mg/Ml Vial) 3 mg IVP X1 ONE Stop: 03/01/25 10:41 Last Admin: 03/01/25 11:19 Dose: 3 mg Olanzapine (Olanzapine 5 Mg Tablet) 20 mg PO HS NOMAN Stop: 04/01/25 20:59 Ondansetron HCl (Ondansetron Inj 2 Mg/Ml Inj 2 Ml) 4 mg IVP X1 ONE Stop: 03/01/25 10:41 Last Admin: 03/01/25 11:18 Dose: 4 mg Sennosides (Senna Tablet) 1 tab PO QDAY PRN; Protocol PRN Reason: constipation Stop: 03/31/25 22:47 Trazodone HCl (Trazodone Hcl 50 Mg Tablet) 50 mg PO HS PRN PRN Reason: Sleep Stop: 03/31/25 22:56 Trimethoprim/Sulfamethoxazole (Trimethoprim/Sulfa 160/800 Ds Tablet) 1 tab PO BID NOMAN Stop: 03/09/25 08:59 Venlafaxine HCl (Venlafaxine 37.5 Mg Tablet) 75 mg PO QAM NOMAN Stop: 04/01/25 08:59 Venlafaxine HCl (Venlafaxine 37.5 Mg Tablet) 150 mg PO HS NOMAN Stop: 04/01/25 20:59 Zinc Sulfate (Zinc Sulfate 220 Mg Capsule) 220 mg PO QDAY NOMAN Stop: 04/01/25 08:59 Assessment & Plan Assessment Tamera Hansen is a 29-year-old female with a medical history significant for developmental delay (moderate intellectual disability), cerebral palsy, seizures, spastic quadriplegia, prior aspiration pneumonia, dislocated right hip, exotropia, s/p gastrotomy tube placement, and recurrent UTIs who presented to the Emergency Department via EMS from her residential ([facility] for evaluation of shortness of breath and altered mental status. Patient was admitted for the work-up and management of sepsis r/o 2/2 UTI. #Complicated UTI ? likely 2/2 P. mirabilis #Kidney stones ? likely 2/2 P. mirabilis #Sepsis CTAP: Numerous bilateral calcifications including 20 mm calculus in the right renal pelvis on the right and staghorn calculus occupying lower pole cal[place] left kidney and left renal pelvis, the pelvic portion measuring 18 mm UA in the ED was positive for signs of UTI: U WBC 306, leukocyte esterase, RBC 202, U blood 3+, 2+ bacteria. Of note, patient has had similar presentations to this hospital in the past. Of note, UCx grew Proteus mirabilis on latest three hospital presentations, in January, August 2024 and June 2024. The increased alkalinity of the current admission's UA is also consistent with a UTI caused by Proteus mirabilis. Cr 0.7 and BUN 20 WNL. No JANNIE. Anion Gap 5, and LA 1.9, WNL, both. SIRS criteria: Pt meets 2 SIRS criteria with HR 151 >90; WBC 12.3 >12; Patient has signs of UTI, UCx pending; and labile BP. These qualifications meet descriptive features of sepsis; and the following plan is recommended on the pretext of sepsis. s/p 4.5 L fluid resuscitation (4 L NS bolus, 0.5 L LR bolus) Diagnostic Inquiry -Follow up on BCx, UCx -Follow up on MRSA nasal screen Treatment Plan -IV Zosyn 3.375 gm q8HR -Restarted home medication: GT methenamine hippurate 1 gm BID -IV Tylenol 1000 mg in 100 mL q6HR prn for fever -Continue to monitor CBC, CMP -ICU notification if MAP <65 or repeat LA >2. #Pneumonia #Prior history of aspiration pneumonia #Cerebral palsy Patient is exhibiting high-grade fever, shortness of breath, tachypnea, altered mental status, and diffuse crackles upon lung auscultation CXR suspicious for early pneuomnia of the left base Septic criteria described above Diagnostic Inquiry -Follow up on BCx, UCx -Follow up on MRSA nasal screen Treatment Plan -IV Zosyn 3.375 gm q8HR -Inhaled Levalbuterol 0.63 mg q6HRRT -Aspiration precautions -Flu and pneumonia vaccine screen #Acute encephalopathy #Hospital delirium vs. UTI delirium #Agitation #Anxiety #Developmental delay (moderate intellectual disability) Per property caretaker, patient does not seem to be at cognitive baseline since onset of fever CT head: Negative for acute hemorrhage, mass effect or midline shift Patient reportedly has a tendency to become agitated in hospital settings (though this has not occurred during the current admission yet) Diagnostic Inquiry -No current recommendation Treatment Plan -Restarted home medications: GT Zyprexa 20 mg HS for agitation/delirium -Restarted home medication: GT Effexor 75 mg qAM and 150 mg qHS, GT trazodone 50 mg HS prn for anxiety #Chronic medical problems #Seizures #Spastic quadriplegia #GERD #Gastrotomy tube Diagnostic Inquiry -No current recommendation Treatment Plan -Restarted home medications: GT Keppra 500 mg BID (seizures), GT Prevacid 30 mg BID (GERD) -Dietitian referral Hospital Management: Disposition: undergoing work-up and management of sepsis 2/2 complicated UTI Diet: NPO GI Prophylaxis: Prevacid Bowel Prophylaxis: Senna DVT Prophylaxis: SCDs CODE STATUS: Full Code I have examined the patient and conferred with my attending, Dr. Hickey, and my senior resident, Dr. Aranda, regarding them. Alessandro Ryan, DO PGY-1 Internal Medicine
[2025-03-02] MEDS: ACETAMINOPHEN IVPB 1,000 MG/100 ML VIAL 250 MG IV ×2 (01:46→09:39)
--- NOTE | 2025-03-02 01:53 | PC.NURSE ---
Dr. Aranda notified of patient having fever, lung sounds are course and MD marleny to place orders.
[2025-03-02] MEDS: LEVALBUTEROL RT 0.63 MG/3 ML NEBU INH ×4 (02:13→19:09)
[2025-03-02 05:25] LABS: Basophils # (Auto) 0.0 Thou/mm3 (0.0-0.2); Basophils % (Auto) 0 % (0-2.5); Eosinophils # (Auto) 0.0 Thou/mm3 (0.0-0.5); Eosinophils % (Auto) 0 % (0-10); Hematocrit 33.9 % (36.0-46.0); Hemoglobin 10.8 g/dL (12.0-16.0); Immature Granulocytes Auto 0.06 Thou/mm3 (0.00-0.00); Lymphocytes # (Auto) 0.7 Thou/mm3 (1.0-4.8); Lymphocytes % (Auto) 9 % (10-50); Mean Corpuscular HGB Conc 31.9 g/dl (31.0-37.0); Mean Corpuscular Hemoglobin 30.3 pg (25.0-35.0); Mean Corpuscular Volume 95 fL (80-100); Monocytes # (Auto) 0.9 Thou/mm3 (0.0-0.8); Monocytes % (Auto) 11 % (0-12); Neutrophils # (Auto) 6.1 Thou/mm3 (1.8-7.7); Neutrophils % (Auto) 79 % (37-80); Nucleated Red Blood Cell # 0.00 Thou/mm3 (0.00-0.00); Nucleated Red Blood Cell % 0 /100 WBC (0); Platelet Count 109 Thou/mm3 (140-440); RDW Standard Deviation 49.4 fL (36.4-46.3); Red Blood Count 3.57 Miln/mm3 (4.00-5.20); White Blood Count 7.8 Thou/mm3 (3.6-11.0)
[2025-03-02] MEDS: BALSAM PERU/CASTOR OIL (Venelex) 60 GM TUBE TOP ×3 (05:59→21:20)
[2025-03-02] MEDS: PIPER/TAZO 3.375 GM PREMIX 3.375 GM/50 ML BAG IV ×3 (05:59→22:35)
[2025-03-02 06:01] LABS: Alanine Aminotransferase 16 U/L (10-49); Albumin, Serum 3.2 gm/dL (3.5-5.0); Albumin/Globulin Ratio 1.3 (1.2-2.2); Alkaline Phosphatase 55 U/L (46-116); Anion Gap 10 (7-16); Aspartate Amino Transferase 17 U/L (0-34); BUN/Creatinine Ratio 24 Ratio (12-20); Bilirubin,Total 0.4 mg/dL (0.3-1.2); Blood Urea Nitrogen 12 mg/dL (9-23); Calcium 7.9 mg/dL (8.3-10.6); Calcium (Corrected) 8.5 mg/dL (8.5-10.1); Carbon Dioxide 22.6 mMol/L (20.0-31.0); Chloride 112 mMol/L (98-107); Creatinine (Component) 0.5 mg/dL (0.6-1.3); Estimated Creatinine Clearance 117.1 mL/min (>60); Globulin 2.4 gm/dL (2.3-3.5); Glucose 79 mg/dL (74-106); Magnesium 1.7 mg/dL (1.6-2.6); Osmolality,Calculated 287 (275-295); Phosphorous 2.8 mg/dL (2.4-5.1); Potassium 3.2 mMol/L (3.4-5.1); Sodium 145 mMol/L (136-145); Total Protein 5.6 gm/dL (5.7-8.2); eGFR > 60 See Note
--- NOTE | 2025-03-02 08:52 | PC.SS ---
Patient Tamera Hansen is a 29 Year old female admitted for Complicated UTI and Poss PNA. SS contacted Amara Reed [phone] from [facility], she informed SS that patient has been in that jail for over ten years. Patient is not conserved, however for more invasive procedures patient's coordinator is Agnes Carndall [phone]. Latisha reports that patient is non ambulatory and utilizes a wheelchair to assist with ambulation. Patient is a total care and needs assistance completing all ADLs. patient is developmentally disabled. Choice of pharmacy is [facility] in [place]. PCP is Radha Juan. At time of discharge patient will return back to [facility]. SS will need to assist with transportation with [facility], per Amara's request. Discharge plan: [facility] Next of kin [facility], Agnes Crandall [phone]
[2025-03-02] MEDS: POLYETHYLENE GLYCOL 17 GM PACKET GT (09:00)
[2025-03-02] MEDS: Magnesium Sulfate 2 GM Ivpb 2 GM/50 ML BAG IV (09:24)
[2025-03-02] MEDS: METHENAMINE HIPPURATE 1 GM TABLET GT ×2 (09:30→19:36)
[2025-03-02] MEDS: MULTIVITAMIN 15 ML UDC GT (09:39)
[2025-03-02] MEDS: levETIRAcetam LIQD 500 MG/5 ML UDC GT ×2 (09:39→21:15)
[2025-03-02] MEDS: CHOLECALCIFEROL (Vitamin D3) 1,000 IU TABLET 5000 IU GT (09:40)
[2025-03-02] MEDS: ASCORBIC ACID 250 MG TABLET 1000 MG GT ×2 (09:40→21:14)
[2025-03-02] MEDS: LANSOPRAZOLE 30 MG TAB.RAP.DR GT ×2 (09:40→21:15)
[2025-03-02] MEDS: ZINC SULFATE 220 MG CAPSULE GT (09:44)
[2025-03-02] MEDS: VENLAFAXINE 37.5 MG TABLET 75 MG GT (10:00)
[2025-03-02] MEDS: METOPROLOL TARTRATE 25 MG TABLET GT (10:00)
--- NOTE | 2025-03-02 12:53 | PC.DIETICIAN ---
Dietitian recommendation: When medically feasible, start equivalent TF formula: Jevity 1.5 250ml 3x per day 06-1400, and 120ml at 2100 via G-tube by pump intermittent feeds over 60minutes, water flush 350ml after feeds via pump or per MD to provide: 1242kcal, 53g protein. Thank you
--- NOTE | 2025-03-02 13:28 | ESPR_ITS ---
<Statement entered by Valerie Cobian MD - 03/02/25 16:08> I have reviewed the note and agree with the resident's assessment & plan with exceptions as below. I have personally reviewed labs, imaging, home meds/prior records, examined the patient, formulated and discussed management plan with the IM team. Patient was a consult yesterday who ended up being admitted after urology from outside hospital was recommended for nephrostomy tube rather than transfer stents. Will speak with interventional radiologist to perform nephrostomy tube if able. Will continue with IV antibiotics, antipyretics and will follow-up urine culture. Repeat hematology and chemistry in the a.m. Resumed all home meds including seizure medicines at this time. Valerie Cobian, PGY-2 Internal Medicine Documentation for date of: 03/02/25 Subjective Subjective Interval history: Patient was seen and examined at bedside. No acute events took place overnight. This morning the patient is interactive, converses with the nurse and provider in the room about her hospital stay. Patient is a poor historian, patient is little aware of her medical condition. Nurse notes that the patient becomes tachypnic occasionally while sleeping. BP and heart rate has been stable through the night. No other complaints. Exam Vital Signs Temp Pulse Resp BP Pulse Ox O2 Del Method O2 Flow Rate 97.6 F 115 H 20 136/70 H 94 L Nasal Cannula 3 03/02/25 07:47 03/02/25 10:00 03/02/25 07:47 03/02/25 10:00 03/02/25 07:47 03/02/25 07:47 03/02/25 07:47 Narrative Exam General: No acute distress. Skin: Hot, dry, intact, no obvious rash. Head: Normocephalic, atraumatic. Eye: Normal conjunctiva, PERRL. Throat: Oral mucosa moist. No obvious lesions in oropharynx. Cardiovascular: Regular rate and normal rhythm, no murmur, +S1/S2. Respiratory: Shallow breathing. No wheezing. Gastrointestinal: Midline abdominal raised cicatrix. Gastrotomy tube at left lower quadrant. Soft, nontender, non-distended. No guarding or rebound tenderness. Extremities: Spasticity and contractures noted in all 4 extremities. No edema, no cyanosis, no clubbing. 2+ radial pulse bilaterally, 2+ posterior tibial pulse bilaterally. Neuro: Could not assess as patient was somnolent Psychiatric: Could not assess as patient was somnolent Objective Labs 03/02/25 04:10 03/02/25 04:10 Labs: Laboratory Results - last 24 hr 03/01/25 03/01/25 03/02/25 09:22 16:48 04:10 WBC 7.8 RBC 3.57 L Hgb 10.8 L D Hct 33.9 L MCV 95 MCH 30.3 MCHC 31.9 RDW Std Deviation 49.4 H Plt Count 109 L D Neut % (Auto) 79 Lymph % (Auto) 9 L [place] % (Auto) 11 Eos % (Auto) 0 Baso % (Auto) 0 Neut # (Auto) 6.1 Lymph # (Auto) 0.7 L [place] # (Auto) 0.9 H Eos # (Auto) 0.0 Baso # (Auto) 0.0 Immature Gran # (Auto) 0.06 H Absolute Nucleated RBC 0.00 Immature Gran % 1 H Nucleated RBC % 0 VBG pH 7.36 VBG pCO2 42 VBG pO2 54 VBG O2 Sat (Robyn) 89 L VBG Base Excess -2 Sodium 145 Potassium 3.2 L D Chloride 112 H Carbon Dioxide 22.6 Anion Gap 10 BUN 12 Creatinine 0.5 L Estim Creat Clear Calc 117.1 eGFR > 60 BUN/Creatinine Ratio 24 H Glucose 79 Calculated Osmolality 287 Lactic Acid 1.5 Calcium 7.9 L D Corrected Calcium 8.5 Phosphorus 2.8 Magnesium 1.7 Total Bilirubin 0.4 AST 17 ALT 16 Alkaline Phosphatase 55 D Total Protein 5.6 L Albumin 3.2 L D Globulin 2.4 Albumin/Globulin Ratio 1.3 HCG, Qual Negative ABG Interpretation ABG results: 03/01/25 16:48 VBG pH 7.36 VBG pCO2 42 VBG pO2 54 VBG Base Excess -2 Quality Measures Quality Measures sepsis Current suspected stage: ruled out Possible source: genitourinary Blood cultures ordered: completed in ED Antibiotic ordered: Yes Assessment & Plan Assessment Current Active Medications: Generic Name Dose Route Start Last Admin Trade Name Freq PRN Reason Stop Dose Admin Ascorbic Acid 1,000 mg 03/02/25 09:00 03/02/25 09:40 Ascorbic Acid 250 Mg Tablet GT 04/01/25 08:59 1,000 mg BID NOMAN Administration Balsam Culver/Easley Oil 0 gm 03/02/25 06:00 03/02/25 05:59 Balsam Kay/Easley Oil (Venelex) 60 Gm Tube TOP 04/01/25 05:59 1 applicatio TID NOMAN Administration Methenamine 0 ea 03/02/25 08:30 03/02/25 09:30 Hippurate 1 Gm GT 04/01/25 08:29 1 tablet Tablet BIDWM NOMAN Administration Piperacillin/Tazobactam/Dextrose 3.375 gm in 50 mls @ 12.5 mls/hr 03/02/25 06:00 03/02/25 05:59 Zosyn IV 03/09/25 05:59 12.5 mls/hr Q8HR NOMAN Administration Protocol Acetaminophen 1,000 mg in 100 mls @ 250 mls/hr 03/02/25 01:23 03/02/25 09:39 Ofirmev Inj IV 250 mls/hr Q6HR PRN Administration Pain 1-3 or Fever>100.1 Lansoprazole 30 mg 03/02/25 09:00 03/02/25 09:40 Lansoprazole 30 Mg Tab.Rap. GT 04/01/25 08:59 30 mg BID NOMAN Administration Levalbuterol HCl 0.63 mg 03/02/25 02:00 03/02/25 13:26 Levalbuterol Rt 0.63 Mg/3 Ml Nebu INH 04/01/25 01:59 0.63 mg Q6HRRT NOMAN Administration Levetiracetam 500 mg 03/02/25 09:00 03/02/25 09:39 Levetiracetam Liqd 500 Mg/5 Ml Udc GT 04/01/25 08:59 500 mg BID NOMAN Administration Melatonin 6 mg 03/02/25 21:00 Melatonin 3 Mg Tablet GT 04/01/25 20:59 HS NOMAN Protocol Metoprolol Tartrate 25 mg 03/02/25 09:00 03/02/25 10:00 Metoprolol Tartrate 25 Mg Tablet GT 04/01/25 08:59 25 mg QDAY NOMAN Administration Multivitamins/Minerals 15 ml 03/02/25 09:00 03/02/25 09:39 Multivitamin 15 Ml Udc GT 04/01/25 08:59 15 ml QDAY NOMAN Administration Olanzapine 20 mg 03/02/25 21:00 Olanzapine 5 Mg Tablet GT 04/01/25 20:59 HS NOMAN Ondansetron HCl 4 mg 03/01/25 22:48 Ondansetron Inj 2 Mg/Ml Inj 2 Ml IVP 03/31/25 22:47 Q6H PRN NAUSEA OR VOMITING Protocol Polyethylene Glycol 17 gm 03/02/25 09:00 Polyethylene Glycol 17 Gm Packet GT 04/01/25 08:59 QOD NOMAN Sennosides 1 tab 03/01/25 23:45 Senna Tablet GT 03/31/25 22:47 QDAY PRN constipation Protocol Trazodone HCl 50 mg 03/01/25 23:45 03/02/25 02:38 Trazodone Hcl 50 Mg Tablet GT 03/31/25 22:56 50 mg HS PRN Administration Sleep Venlafaxine HCl 75 mg 03/02/25 09:00 03/02/25 10:00 Venlafaxine 37.5 Mg Tablet GT 04/01/25 08:59 75 mg QAM NOMAN Administration Venlafaxine HCl 150 mg 03/02/25 21:00 Venlafaxine 37.5 Mg Tablet GT 04/01/25 20:59 HS NOMAN Vitamin D 5,000 iu 03/02/25 09:00 03/02/25 09:40 Cholecalciferol (Vitamin D3) 1,000 Iu Tablet GT 04/01/25 08:59 5,000 iu QDAY NOMAN Administration Zinc Sulfate 220 mg 03/02/25 09:00 03/02/25 09:44 Zinc Sulfate 220 Mg Capsule GT 04/01/25 08:59 220 mg QDAY NOMAN Administration Plan Assessment & Plan Assessment Tamera Hansen is a 29-year-old female with a medical history significant for developmental delay (moderate intellectual disability), cerebral palsy, seizures, spastic quadriplegia, prior aspiration pneumonia, dislocated right hip, exotropia, s/p gastrotomy tube placement, and recurrent UTIs who presented to the Emergency Department via EMS from her [facility] ([facility]) for evaluation of shortness of breath and altered mental status. Patient was admitted for the work-up and management of sepsis r/o 2/2 UTI. #Complicated UTI ? likely 2/2 P. mirabilis #Kidney stones ? likely 2/2 P. mirabilis #Sepsis CTAP: Numerous bilateral calcifications including 20 mm calculus in the right renal pelvis on the right and staghorn calculus occupying lower pole calyces left kidney and left renal pelvis, the pelvic portion measuring 18 mm UA in the ED was positive for signs of UTI: U WBC 306, leukocyte esterase, RBC 202, U blood 3+, 2+ bacteria. Of note, patient has had similar presentations to this hospital in the past. Of note, UCx grew Proteus mirabilis on latest three hospital presentations, in January, August 2024 and June 2024. The increased alkalinity of the current admission's UA is also consistent with a UTI caused by Proteus mirabilis. UCx positive for gram negative bacteria (03/02), pending final ctx results. Cr 0.5 and BUN 12 WNL. No h/o JANNIE. Anion Gap 5, and LA 1.9, WNL, both. SIRS criteria: Pt met 2 SIRS criteria at presentation with HR 151 >90; WBC 12.3 >12; Patient has signs of UTI, UCx positive for gram negative bacteria; and labile BP. These qualifications meet descriptive features of sepsis; and the following plan is recommended on the pretext of sepsis. 03/02 vitals signs stable. LA 1.5 BCx was neative at 24h, s/p 4.5 L fluid resuscitation (4 L NS bolus, 0.5 L LR bolus) Diagnostic Inquiry -Follow up on BCx, UCx -Follow up on MRSA nasal screen Treatment Plan -IV Zosyn 3.375 gm q8HR -Restarted home medication: GT methenamine hippurate 1 gm BID -IV Tylenol 1000 mg in 100 mL q6HR prn for fever -consulted IR for indication of nephrostomy for renal pelvix calculi b/l. -consulted Infectious Disease, appreciate recommendations. -Continue to monitor CBC, CMP -ICU notification if MAP <65 or repeat LA >2. #Pneumonia #Prior history of aspiration pneumonia #Cerebral palsy Patient is exhibiting high-grade fever, shortness of breath, tachypnea, altered mental status, and diffuse crackles upon lung auscultation CXR suspicious for early pneuomnia of the left base Septic criteria described above Diagnostic Inquiry -Follow up on BCx -Follow up on MRSA nasal screen Treatment Plan -IV Zosyn 3.375 gm q8HR -Inhaled Levalbuterol 0.63 mg q6HRRT -Aspiration precautions -Flu and pneumonia vaccine screen #Acute encephalopathy #Hospital delirium vs. UTI delirium #Agitation #Anxiety #Developmental delay (moderate intellectual disability) Per food cooking machine operator, patient does not seem to be at cognitive baseline since onset of fever CT head: Negative for acute hemorrhage, mass effect or midline shift Patient reportedly has a tendency to become agitated in hospital settings (though this has not occurred during the current admission yet) Diagnostic Inquiry -No current recommendation Treatment Plan -Restarted home medications: GT Zyprexa 20 mg HS for agitation/delirium -Restarted home medication: GT Effexor 75 mg qAM and 150 mg qHS, GT trazodone 50 mg HS prn for anxiety #Chronic medical problems #Seizures #Spastic quadriplegia #GERD #Gastrotomy tube Diagnostic Inquiry -No current recommendation Treatment Plan -Restarted home medications: GT Keppra 500 mg BID (seizures), GT Prevacid 30 mg BID (GERD) -Dietitian referral Hospital Management: Disposition: undergoing work-up and management of sepsis 2/2 complicated UTI Diet: NPO GI Prophylaxis: Prevacid Bowel Prophylaxis: Senna DVT Prophylaxis: SCDs CODE STATUS: Full Code This case was discussed with my attending physician, Dr. He, and senior resident, Dr Cobian. Shira Levy, DO PGY I Attending Provider Attestation/Addendum Patient with developmental delay admitted for sepsis secondary to UTI and possible aspiration pneumonia. Patient responded to fluid challenges. She also got antibiotic treatment. Her blood pressure is more stable today. I discussed with and supervised the resident physician who took care of this patient. I agree with the assessment and plan as above.
[2025-03-02] MEDS: VENLAFAXINE 37.5 MG TABLET 150 MG GT (21:15)
[2025-03-02] MEDS: MELATONIN 3 MG TABLET 6 MG GT (21:15)
[2025-03-03] VITALS (18 sets, daily range): BP systolic 105–168; BP diastolic 69–95; PULSE 74–136; RESP 23–59; TEMP 36.1–37.1; O2SAT 92–98
[2025-03-03] MEDS: LEVALBUTEROL RT 0.63 MG/3 ML NEBU INH ×4 (01:27→18:29)
[2025-03-03] MEDS: PIPER/TAZO 3.375 GM PREMIX 3.375 GM/50 ML BAG IV (05:32)
[2025-03-03] MEDS: BALSAM PERU/CASTOR OIL (Venelex) 60 GM TUBE TOP ×3 (05:33→22:51)
[2025-03-03 06:22] LABS: Basophils # (Auto) 0.0 Thou/mm3 (0.0-0.2); Basophils % (Auto) 0 % (0-2.5); Eosinophils # (Auto) 0.0 Thou/mm3 (0.0-0.5); Eosinophils % (Auto) 0 % (0-10); Hematocrit 35.2 % (36.0-46.0); Hemoglobin 11.6 g/dL (12.0-16.0); Immature Granulocytes Auto 0.11 Thou/mm3 (0.00-0.00); Lymphocytes # (Auto) 0.9 Thou/mm3 (1.0-4.8); Lymphocytes % (Auto) 10 % (10-50); Mean Corpuscular HGB Conc 33.0 g/dl (31.0-37.0); Mean Corpuscular Hemoglobin 30.2 pg (25.0-35.0); Mean Corpuscular Volume 92 fL (80-100); Monocytes # (Auto) 1.0 Thou/mm3 (0.0-0.8); Monocytes % (Auto) 11 % (0-12); Neutrophils # (Auto) 6.4 Thou/mm3 (1.8-7.7); Neutrophils % (Auto) 77 % (37-80); Nucleated Red Blood Cell # 0.00 Thou/mm3 (0.00-0.00); Nucleated Red Blood Cell % 0 /100 WBC (0); Platelet Count 135 Thou/mm3 (140-440); RDW Standard Deviation 46.4 fL (36.4-46.3); Red Blood Count 3.84 Miln/mm3 (4.00-5.20); White Blood Count 8.3 Thou/mm3 (3.6-11.0)
[2025-03-03 06:32] LABS: INR 1.2 (0.9-1.3); Partial Thromboplastin Time 24.7 Seconds (22.0-36.0); Prothrombin Time 13.0 Seconds (9.0-12.2)
[2025-03-03 07:11] LABS: Alanine Aminotransferase 19 U/L (10-49); Albumin, Serum 3.5 gm/dL (3.5-5.0); Albumin/Globulin Ratio 1.4 (1.2-2.2); Alkaline Phosphatase 59 U/L (46-116); Anion Gap 14 (7-16); Aspartate Amino Transferase 20 U/L (0-34); BUN/Creatinine Ratio 23 Ratio (12-20); Bilirubin,Total 0.5 mg/dL (0.3-1.2); Blood Urea Nitrogen 9 mg/dL (9-23); Calcium 8.5 mg/dL (8.3-10.6); Calcium (Corrected) 8.9 mg/dL (8.5-10.1); Carbon Dioxide 26.9 mMol/L (20.0-31.0); Chloride 105 mMol/L (98-107); Creatinine (Component) 0.4 mg/dL (0.6-1.3); Estimated Creatinine Clearance 146.4 mL/min (>60); Globulin 2.5 gm/dL (2.3-3.5); Glucose 93 mg/dL (74-106); Magnesium 2.0 mg/dL (1.6-2.6); Osmolality,Calculated 289 (275-295); Phosphorous 1.9 mg/dL (2.4-5.1); Sodium 146 mMol/L (136-145); Total Protein 6.0 gm/dL (5.7-8.2); eGFR > 60 See Note
[2025-03-03 07:15] LABS: Potassium 2.7 mMol/L (3.4-5.1)
[2025-03-03] MEDS: POTASSIUM CHLORIDE 10% 20 MEQ/15 ML UDC 40 MEQ GT ×2 (09:08→15:04)
[2025-03-03] MEDS: levETIRAcetam LIQD 500 MG/5 ML UDC GT ×2 (09:09→20:36)
[2025-03-03] MEDS: MULTIVITAMIN 15 ML UDC GT (09:09)
[2025-03-03] MEDS: CHOLECALCIFEROL (Vitamin D3) 1,000 IU TABLET 5000 IU GT (09:09)
[2025-03-03] MEDS: VENLAFAXINE 37.5 MG TABLET 75 MG GT (09:10)
[2025-03-03] MEDS: LANSOPRAZOLE 30 MG TAB.RAP.DR GT ×2 (09:10→20:36)
[2025-03-03] MEDS: METOPROLOL TARTRATE 25 MG TABLET GT (09:11)
[2025-03-03] MEDS: ASCORBIC ACID 250 MG TABLET 1000 MG GT ×2 (09:15→20:36)
[2025-03-03] MEDS: POTASSIUM PHOS 22.5 MMOL in SODIUM CHLORIDE 0.9% 500 ML 500 ML 82.778 MMOL IV (09:16)
[2025-03-03] MEDS: ZINC SULFATE 220 MG CAPSULE GT (09:16)
[2025-03-03] MEDS: METHENAMINE HIPPURATE 1 GM TABLET GT ×2 (09:17→17:38)
--- NOTE | 2025-03-03 10:26 | ESPR_ITS ---
Subjective Subjective Interval history: asked to see for rx recs. not a good historian Exam Vital Signs Temp Pulse Resp BP Pulse Ox O2 Del Method O2 Flow Rate 97.5 F 99 32 H 130/77 92 L Nasal Cannula 3 03/03/25 07:42 03/03/25 09:11 03/03/25 07:42 03/03/25 09:11 03/03/25 07:42 03/03/25 07:42 03/03/25 07:42 Narrative Exam has peg and has been taking meds via that route Objective - Internal Medicine Labs 03/03/25 05:43 03/03/25 05:43 Labs: Laboratory Results - last 24 hr 03/03/25 05:43 WBC 8.3 RBC 3.84 L Hgb 11.6 L Hct 35.2 L MCV 92 MCH 30.2 MCHC 33.0 RDW Std Deviation 46.4 H Plt Count 135 L D Neut % (Auto) 77 Lymph % (Auto) 10 [place] % (Auto) 11 Eos % (Auto) 0 Baso % (Auto) 0 Neut # (Auto) 6.4 Lymph # (Auto) 0.9 L [place] # (Auto) 1.0 H Eos # (Auto) 0.0 Baso # (Auto) 0.0 Immature Gran # (Auto) 0.11 H Absolute Nucleated RBC 0.00 Immature Gran % 1 H Nucleated RBC % 0 PT 13.0 H INR 1.2 APTT 24.7 Sodium 146 H Potassium 2.7 L* D Chloride 105 Carbon Dioxide 26.9 Anion Gap 14 BUN 9 Creatinine 0.4 L Estim Creat Clear Calc 146.4 eGFR > 60 BUN/Creatinine Ratio 23 H Glucose 93 Calculated Osmolality 289 Calcium 8.5 Corrected Calcium 8.9 Phosphorus 1.9 L Magnesium 2.0 Total Bilirubin 0.5 AST 20 ALT 19 Alkaline Phosphatase 59 Total Protein 6.0 Albumin 3.5 Globulin 2.5 Albumin/Globulin Ratio 1.4 ABG Interpretation ABG results: 03/01/25 16:48 VBG pH 7.36 VBG pCO2 42 VBG pO2 54 VBG Base Excess -2 Assessment & Plan A&P Narrative uti and possible early pneumonia. on O2. mild cxr changes. will go with levaquin for pneumonia and fosfomycin 3.0 gm x1 for uti as waiting for more micro seems a waste at this point in time prior place of residence ok with me at your discretion. ok for meds to be per peg if that is better for her Time Spent With Patient Time: Total time spent is greater than 50% in coordination of care (as documented) at patient's floor/unit and/or counseling patient:
[2025-03-03] MEDS: FOSFOMYCIN PWD 3 GM PACKET (NON-FORMULARY) PO (11:30)
[2025-03-03] MEDS: guaiFENesin SYRUP 200 MG/10 ML UDC 100 MG PO (12:38)
[2025-03-03] MEDS: POTASSIUM CHLORIDE 10% 20 MEQ/15 ML UDC GT (12:39)
--- NOTE | 2025-03-03 12:44 | ESCONSULT_ITS ---
RE: MIRELA FAROOQ : 1995 DATE OF CONSULTATION: 03/03/2025 REFERRING PHYSICIAN: Dr. Hickey. REASON FOR CONSULTATION: UTI and the possibility of pneumonia in a patient requiring oxygen, and mental retardation, developmental delay, and seizure disorder. HISTORY OF PRESENT ILLNESS: The patient has seizure disorder and abnormal urine. She comes [facility] us from a prison, apparently her long-term residence. We have no known information about her status otherwise. PAST SURGICAL HISTORY: Includes only a feeding tube as noted in the record. There is no other information available. The patient cannot offer any meaningful history. ALLERGIES: LIMITED INFORMATION ON FILE WELL. SHE HAS A NOTED HISTORY OF ALLERGY TO PENICILLIN, SO WE WILL HAVE TO STAY AWAY FROM THAT FAMILY OF ANTIBIOTICS. MAY INCLUDE CEPHALOSPORINS, ALTHOUGH WE DO NOT KNOW. IMMUNIZATIONS: Unavailable, but she presumably has been immunized fully. We still do not know that. FAMILY HISTORY AND SOCIAL HISTORY: Unavailable although she apparently comes to us from prison. I assume she is a long-term resident there. There is no tobacco or drug use noted. PHYSICAL EXAMINATION: On exam, the patient has no complaints. She is on oxygen and has some obvious contractures of her upper and lower extremities. The lower extremities are more striking than the uppers. She appears to have cerebral palsy, mental retardation, and developmental delay. I [facility], but we do not know that for certainty. RECOMMENDATIONS: She likely can go back to the prison on Levaquin and one dose of fosfomycin today. If you want to send her tomorrow, that would be fine. Levaquin can be through a feeding tube if desired, so can the fosfomycin on a one-time basis. I will see her again on Thursday if she stays, but if she goes home, I have no objections. cc: Roberto Leach DT: 10:41:28 TT: 11:04:00 Ref: [id number] - TID: [id number] MTDD
[2025-03-03 14:05] LABS: Albumin, Serum 3.4 gm/dL (3.5-5.0); Anion Gap 11 (7-16); BUN/Creatinine Ratio 25 Ratio (12-20); Blood Urea Nitrogen 10 mg/dL (9-23); Calcium 8.3 mg/dL (8.3-10.6); Calcium (Corrected) 8.8 mg/dL (8.5-10.1); Carbon Dioxide 27.4 mMol/L (20.0-31.0); Chloride 109 mMol/L (98-107); Creatinine (Component) 0.4 mg/dL (0.6-1.3); Estimated Creatinine Clearance 146.4 mL/min (>60); Glucose 128 mg/dL (74-106); Osmolality,Calculated 293 (275-295); Phosphorous 3.0 mg/dL (2.4-5.1); Potassium 3.2 mMol/L (3.4-5.1); Sodium 147 mMol/L (136-145); eGFR > 60 See Note
--- NOTE | 2025-03-03 14:22 | PC.SS ---
Follow up note: SS spoke to Amara, half-way optometrist owner, who states she is still waiting on licensing to let her know if she could potentially take a nephrostomy tube for patient. SS spoke to physician and Urology already consulted and patient does not need nephrostomy tube. Pending cultures then patient to d/c Thursday. SS udpated staff. They prefer patient to d/c via ambulance tomorrow.
--- NOTE | 2025-03-03 17:53 | ESPR_ITS ---
<Statement entered by Valerie Cobian MD - 03/04/25 16:03> I have reviewed the note and agree with the resident's assessment & plan with exceptions as below. I have personally reviewed labs, imaging, home meds/prior records, examined the patient, formulated and discussed management plan with the IM team. Patient examined at bedside today. Pending cultures, continue with Levaquin, ID on consult, appreciate recommendations. Resume tube feeds. Pending urology recommendations. Repeat hematology and chemistry in the a.m. Valerie Cobian, PGY-2 Internal Medicine Documentation for date of: 03/03/25 Subjective Subjective Interval history: Patient was seen and examined at bedside. No acute events took place overnight. This morning the the interviewer had difficulty communicating with the patient and nursing did not have much more success. Patient is a poor historian, patient is little aware of her medical condition. Nurse notes that the patient becomes tachypnic occasionally while sleeping. BP and heart rate has been stable through the night. No other complaints. Exam Vital Signs Temp Pulse Resp BP Pulse Ox O2 Del Method O2 Flow Rate 97.5 F 113 H 30 H 126/78 96 Nasal Cannula 3 03/03/25 15:47 03/03/25 16:37 03/03/25 15:47 03/03/25 15:47 03/03/25 15:47 03/03/25 15:47 03/03/25 15:47 Narrative Exam Gen: No acute distress HEENT: NCAT, PERRLOU, Sclera anicteric, conjunctiva noninjected, oral mucosa moist without erythema Neck: Supple, full range of motion, no LAD CV: RRR, no murmurs, rubs or gallops Resp: Scattered rhonchi noted in bilateral lung cabrales and wheezing in upper airways. GI: abdomen soft, PEG tube in place, clean dry and intact. Bowel sounds noted, no tenderness to palpation, no guarding or rebound tenderness, no organomegaly Skin: clean, dry, no rashes, lesions or ecchymosis Ext: Bilateral lower extremities are contracted. Well-healed scar noted in right hip Neuro: A&O x 1, patient able to answer simple questions, slurred speech at baseline. Able to follow some simple commands. Moves upper extremities spontaneously. Hands contracted. Objective Labs 03/04/25 05:44 03/04/25 05:44 Labs: Laboratory Results - last 24 hr 03/03/25 03/03/25 05:43 13:40 WBC 8.3 RBC 3.84 L Hgb 11.6 L Hct 35.2 L MCV 92 MCH 30.2 MCHC 33.0 RDW Std Deviation 46.4 H Plt Count 135 L D Neut % (Auto) 77 Lymph % (Auto) 10 Thomas % (Auto) 11 Eos % (Auto) 0 Baso % (Auto) 0 Neut # (Auto) 6.4 Lymph # (Auto) 0.9 L Thomas # (Auto) 1.0 H Eos # (Auto) 0.0 Baso # (Auto) 0.0 Immature Gran # (Auto) 0.11 H Absolute Nucleated RBC 0.00 Immature Gran % 1 H Nucleated RBC % 0 PT 13.0 H INR 1.2 APTT 24.7 Sodium 146 H 147 H Potassium 2.7 L* D 3.2 L D Chloride 105 109 H Carbon Dioxide 26.9 27.4 Anion Gap 14 11 BUN 9 10 Creatinine 0.4 L 0.4 L Estim Creat Clear Calc 146.4 146.4 eGFR > 60 > 60 BUN/Creatinine Ratio 23 H 25 H Glucose 93 128 H Calculated Osmolality 289 293 Calcium 8.5 8.3 Corrected Calcium 8.9 8.8 Phosphorus 1.9 L 3.0 Magnesium 2.0 Total Bilirubin 0.5 AST 20 ALT 19 Alkaline Phosphatase 59 Total Protein 6.0 Albumin 3.5 3.4 L Globulin 2.5 Albumin/Globulin Ratio 1.4 ABG Interpretation ABG results: 03/01/25 16:48 VBG pH 7.36 VBG pCO2 42 VBG pO2 54 VBG Base Excess -2 Quality Measures Quality Measures sepsis Current suspected stage: sepsis Possible source: genitourinary Blood cultures ordered: completed in ED Antibiotic ordered: Yes Assessment & Plan Assessment Current Active Medications: Generic Name Dose Route Start Last Admin Trade Name Freq PRN Reason Stop Dose Admin Acetylcysteine 3 ml 03/03/25 19:00 Acetylcysteine Rt Melanie 10% 4 Ml Nebu INH 04/02/25 18:59 Q6HRRT NOMAN Ascorbic Acid 1,000 mg 03/02/25 09:00 03/03/25 09:15 Ascorbic Acid 250 Mg Tablet GT 04/01/25 08:59 1,000 mg BID NOMAN Administration Balsam Kay/[place] Oil 0 gm 03/02/25 06:00 03/03/25 14:42 Balsam Kay/[place] Oil (Venelex) 60 Gm Tube TOP 04/01/25 05:59 1 applicatio TID NOMAN Administration Methenamine 0 ea 03/02/25 08:30 03/03/25 17:38 Hippurate 1 Gm GT 04/01/25 08:29 1 tablet Tablet BIDWM NOMAN Administration Fosfomycin Tromethamine 3 gm 03/03/25 10:30 03/03/25 11:30 Fosfomycin Pwd 3 Gm Packet (Non-Formulary) PO 03/10/25 10:29 3 gm DAILY NOMAN Administration Guaifenesin 100 mg 03/03/25 11:59 Guaifenesin Syrup 200 Mg/10 Ml Udc PO 04/02/25 11:58 QID PRN COUGH Protocol Acetaminophen 1,000 mg in 100 mls @ 250 mls/hr 03/02/25 01:23 03/02/25 10:05 Ofirmev Inj IV Infused Q6HR PRN Infusion Pain 1-3 or Fever>100.1 Lansoprazole 30 mg 03/02/25 09:00 03/03/25 09:10 Lansoprazole 30 Mg Tab.Rap. GT 04/01/25 08:59 30 mg BID NOMAN Administration Levalbuterol HCl 0.63 mg 03/02/25 02:00 03/03/25 14:02 Levalbuterol Rt 0.63 Mg/3 Ml Nebu INH 04/01/25 01:59 0.63 mg Q6HRRT NOMAN Administration Levetiracetam 500 mg 03/02/25 09:00 03/03/25 09:09 Levetiracetam Liqd 500 Mg/5 Ml Udc GT 04/01/25 08:59 500 mg BID NOMAN Administration Levofloxacin 500 mg 03/04/25 09:00 Levofloxacin 250 Mg Tablet PO 03/08/25 12:00 QDAY NOMAN Melatonin 6 mg 03/02/25 21:00 03/02/25 21:15 Melatonin 3 Mg Tablet GT 04/01/25 20:59 6 mg HS NOMAN Administration Protocol Metoprolol Tartrate 25 mg 03/02/25 09:00 03/03/25 09:11 Metoprolol Tartrate 25 Mg Tablet GT 04/01/25 08:59 25 mg QDAY NOMAN Administration Multivitamins/Minerals 15 ml 03/02/25 09:00 03/03/25 09:09 Multivitamin 15 Ml Udc GT 04/01/25 08:59 15 ml QDAY NOMAN Administration Olanzapine 20 mg 03/02/25 21:00 03/02/25 21:14 Olanzapine 5 Mg Tablet GT 04/01/25 20:59 20 mg HS NOMAN Administration Ondansetron HCl 4 mg 03/01/25 22:48 Ondansetron Inj 2 Mg/Ml Inj 2 Ml IVP 03/31/25 22:47 Q6H PRN NAUSEA OR VOMITING Protocol Polyethylene Glycol 17 gm 03/02/25 09:00 03/02/25 09:00 Polyethylene Glycol 17 Gm Packet GT 04/01/25 08:59 17 gm QOD NOMAN Administration Sennosides 1 tab 03/01/25 23:45 Senna Tablet GT 03/31/25 22:47 QDAY PRN constipation Protocol Trazodone HCl 50 mg 03/01/25 23:45 03/02/25 02:38 Trazodone Hcl 50 Mg Tablet GT 03/31/25 22:56 50 mg HS PRN Administration Sleep Venlafaxine HCl 75 mg 03/02/25 09:00 03/03/25 09:10 Venlafaxine 37.5 Mg Tablet GT 04/01/25 08:59 75 mg QAM NOMAN Administration Venlafaxine HCl 150 mg 03/02/25 21:00 03/02/25 21:15 Venlafaxine 37.5 Mg Tablet GT 04/01/25 20:59 150 mg HS NOMAN Administration Vitamin D 5,000 iu 03/02/25 09:00 03/03/25 09:09 Cholecalciferol (Vitamin D3) 1,000 Iu Tablet GT 04/01/25 08:59 5,000 iu QDAY NOMAN Administration Zinc Sulfate 220 mg 03/02/25 09:00 03/03/25 09:16 Zinc Sulfate 220 Mg Capsule GT 04/01/25 08:59 220 mg QDAY NOMAN Administration Plan Assessment Tamera Hansen is a 29-year-old female with a medical history significant for developmental delay (moderate intellectual disability), cerebral palsy, seizures, spastic quadriplegia, prior aspiration pneumonia, dislocated right hip, exotropia, s/p gastrotomy tube placement, and recurrent UTIs who presented to the Emergency Department via EMS from her longterm ([facility]) for evaluation of shortness of breath and altered mental status. Patient was admitted for the work-up and management of sepsis r/o 2/2 UTI. #Complicated UTI ? likely 2/2 P. mirabilis #Kidney stones ? likely 2/2 P. mirabilis #Sepsis CTAP: Numerous bilateral calcifications including 20 mm calculus in the right renal pelvis on the right and staghorn calculus occupying lower pole cal[place] left kidney and left renal pelvis, the pelvic portion measuring 18 mm UA in the ED was positive for signs of UTI: U WBC 306, leukocyte esterase, RBC 202, U blood 3+, 2+ bacteria. Of note, patient has had similar presentations to this hospital in the past. Of note, UCx grew Proteus mirabilis on latest three hospital presentations, in January, August 2024 and June 2024. The increased alkalinity of the current admission's UA is also consistent with a UTI caused by Proteus mirabilis. UCx positive for gram negative bacteria (03/02), pending final ctx results. Cr 0.5 and BUN 12 WNL. No h/o JANNIE. Anion Gap 5, and LA 1.9, WNL, both. SIRS criteria: Pt met 2 SIRS criteria at presentation with HR 151 >90; WBC 12.3 >12; Patient has signs of UTI, UCx positive for gram negative bacteria; and labile BP. These qualifications meet descriptive features of sepsis; and the following plan is recommended on the pretext of sepsis. 03/02 vitals signs stable. LA 1.5 BCx was negative at 24h, s/p 4.5 L fluid resuscitation (4 L NS bolus, 0.5 L LR bolus) Diagnostic Inquiry -Follow up on BCx, UCx; preliminary urine culture: GNR; Prelim blood culture shows no growth after 48 hours -Follow up on MRSA nasal screen --> MRSA screen negative for MRSA Treatment Plan -IV Zosyn 3.375 gm q8HR -Restarted home medication: GT methenamine hippurate 1 gm BID -IV Tylenol 1000 mg in 100 mL q6HR prn for fever -consulted IR for indication of nephrostomy for renal pelvix calculi b/l --> n ephrostomy tube cancelled per facility will not accept patient with nephrostomy tube -consulted Infectious Disease, appreciate recommendations. -Continue to monitor CBC, CMP -ICU notification if MAP <65 or repeat LA >2. -FUP uro consult for best treatment of renal calculi since there is no obstruction -repeat renal panel #Pneumonia #Prior history of aspiration pneumonia #Cerebral palsy Patient is exhibiting high-grade fever, shortness of breath, tachypnea, altered mental status, and diffuse crackles upon lung auscultation CXR suspicious for early pneuomnia of the left base Septic criteria described above Diagnostic Inquiry -Follow up on BCx -Follow up on MRSA nasal screen Treatment Plan -IV Zosyn 3.375 gm q8HR -Inhaled Levalbuterol 0.63 mg q6HRRT -Aspiration precautions -Flu and pneumonia vaccine screen #Acute encephalopathy #Hospital delirium vs. UTI delirium #Agitation #Anxiety #Developmental delay (moderate intellectual disability) Per learning coach, patient does not seem to be at cognitive baseline since onset of fever CT head: Negative for acute hemorrhage, mass effect or midline shift Patient reportedly has a tendency to become agitated in hospital settings (though this has not occurred during the current admission yet) Diagnostic Inquiry -No current recommendation Treatment Plan -Restarted home medications: GT Zyprexa 20 mg HS for agitation/delirium -Restarted home medication: GT Effexor 75 mg qAM and 150 mg qHS, GT trazodone 50 mg HS prn for anxiety #Chronic medical problems #Seizures #Spastic quadriplegia #GERD #Gastrotomy tube Diagnostic Inquiry -No current recommendation Treatment Plan -Restarted home medications: GT Keppra 500 mg BID (seizures), GT Prevacid 30 mg BID (GERD) -Dietitian referral #Hospital Management Disposition: undergoing work-up and management of sepsis 2/2 complicated UTI Diet: NPO GI Prophylaxis: Prevacid Bowel Prophylaxis: Senna DVT Prophylaxis: SCDs CODE STATUS: Full Code Patient seen and reviewed with attending Dr. Narayanan and supervising resident Dr. Aranza Cooley MD PGY-1 Attending Provider Attestation/Addendum Grady, Carmina Narayanan, , attest that I was physically present for the dorado portions of the service and evaluated the patient with the resident and I reviewed and discussed the case with the resident and agree with the resident's findings and plans of care as documented above Patient seen and eval this a.m. No acute events overnight. Patient noted to have some scattered wheezing and rhonchi noted on lung exam. Will give patient 1 dose of steroids and continue chest physiotherapy. Will add mucolytic to scheduled breathing treatments. Pending urine culture final cultures and sensitivity. Anticipate discharge in the next 24 to 48 hours. Pending urology recommendations given significant stone burden noted in bilateral kidneys on CT imaging. Patient is contracted and would be difficult to undergo any procedures since she cannot be placed in a lithotomy position. She would likely need to be followed up at a tertiary center. Technical Services Coordinator has emphasized that patient would not tolerate nephrostomy tubes, nor would they be able to manage patient with nephrostomy tubes. Case discussed with urology. No need for any interventions or nephrostomy tube placement as there is no signs of obstruction at this time.
[2025-03-03] MEDS: ACETYLCYSTEINE RT SOL 10% 4 ML NEBU 3 ML INH (18:29)
--- NOTE | 2025-03-03 18:35 | EKG_ITS ---
[facility] Test Date: 2025-03-03 Pat Name: MIRELA FAROOQ Department: Room: 54A Gender: Female Commissary Representative: CINTHYA : 1995 Requested By: Samir Alves Order Number: [id number] Reading MD: Samir Alves Measurements Intervals [place] Rate: 88 P: 53 LA: 137 QRS: 112 QRSD: 86 T: 55 QT: 346 QTc: 419 Interpretive Statements SINUS RHYTHM WITH SINUS ARRHYTHMIA POSSIBLE LEFT ATRIAL ENLARGEMENT LOW QRS VOLTAGE IN PRECORDIAL LEADS POSSIBLE RIGHT VENTRICULAR CONDUCTION DELAY LEFT POSTERIOR FASCICULAR BLOCK NONSPECIFIC T-WAVE ABNORMALITY Compared to ECG 03/01/2025 09:38:35 Low QRS voltage now present Left posterior fascicular block now present T-wave abnormality now present Sinus tachycardia no longer present Incomplete right bundle-branch block no longer present ST (T wave) deviation no longer present /store/S0/[id number]/ecg/[id number].pdf
[2025-03-03] MEDS: MIDAZOLAM INJ 1 MG/ML VIAL 2 ML IVP (18:45)
--- NOTE | 2025-03-03 18:46 | XR_ITS ---
Examination: AP chest single view TECHNIQUE: AP portable semiupright chest single view Date and time: March 03, 2025, 1859 hours Comparison March 01, 2025 INDICATIONS: Difficulty breathing abnormal rest sounds on auscultation today. FINDINGS: Bilateral perihilar pneumonia Moderate elevation right hemidiaphragm. No significant cardiac enlargement Impression : Bilateral perihilar basilar pneumonia
--- NOTE | 2025-03-03 18:46 | PC.NURSE ---
Versed overide done d/t urgency of rapid response by pt. kain at [facility] verified & pulled with charge Bernie HACKETT. waste was done at bedside prior to administration.1 mg ivp waste verified with icu battery charger Joe. administered 1 mg ivp per md walker orders.
--- NOTE | 2025-03-03 19:00 | PC.NURSE ---
ASSISTANT COOK called due to pt HR up to 160,RR 60, pt is very anxious, lung sound wheezes, [id number]
[2025-03-03 19:44] LABS: Base Excess, Venous 2 (-3-3); O2 Saturation, Venous 94 % (96-97); PCO2, Venous 32 mmHg (36-56); PO2, Venous 62 mmHg (15-58); pH, Venous 7.50 (7.33-7.66)
--- NOTE | 2025-03-03 20:13 | PC.NURSE ---
Patient transferred to Room 279 at 1953 with all patient's belongings. Report given to LEW Ferris at 1940.
[2025-03-03] MEDS: VENLAFAXINE 37.5 MG TABLET 150 MG GT (20:35)
[2025-03-03] MEDS: MELATONIN 3 MG TABLET 6 MG GT (20:36)
--- NOTE | 2025-03-03 21:34 | PD.RESEVENT ---
Documentation for date of: 03/03/25 Event Note Event Note: Rapid response was called at 18:45 per patient tachypnic and elevated HR above 120s baseline. Midazolam 1mg IV given. Chest xray ordered to rule out possible aspiration pneumonia. VBG ordered to assess hypoxemia. After administration of midazolam patient respiratory distress improved. Patient upgraded to tele. Will continue to monitor, most likely etiology is panic attack however, aspiration pneumonia to be considered as crackles were heard on pulmonary exam. Labs
[2025-03-04] VITALS (11 sets, daily range): BP systolic 114–149; BP diastolic 64–109; PULSE 73–120; RESP 22–35; TEMP 36.1–36.3; O2SAT 96–100
[2025-03-04] MEDS: ACETYLCYSTEINE RT SOL 10% 4 ML NEBU 3 ML INH ×4 (00:23→18:51)
[2025-03-04] MEDS: LEVALBUTEROL RT 0.63 MG/3 ML NEBU INH ×3 (00:24→12:14)
[2025-03-04] MEDS: guaiFENesin SYRUP 200 MG/10 ML UDC 100 MG PO (05:47)
[2025-03-04] MEDS: BALSAM PERU/CASTOR OIL (Venelex) 60 GM TUBE TOP ×3 (05:48→21:14)
[2025-03-04 05:59] LABS: Basophils # (Auto) 0.0 Thou/mm3 (0.0-0.2); Basophils % (Auto) 0 % (0-2.5); Eosinophils # (Auto) 0.0 Thou/mm3 (0.0-0.5); Eosinophils % (Auto) 0 % (0-10); Hematocrit 37.1 % (36.0-46.0); Hemoglobin 12.1 g/dL (12.0-16.0); Immature Granulocytes Auto 0.95 Thou/mm3 (0.00-0.00); Lymphocytes # (Auto) 0.8 Thou/mm3 (1.0-4.8); Lymphocytes % (Auto) 13 % (10-50); Mean Corpuscular HGB Conc 32.6 g/dl (31.0-37.0); Mean Corpuscular Hemoglobin 29.8 pg (25.0-35.0); Mean Corpuscular Volume 91 fL (80-100); Monocytes # (Auto) 0.3 Thou/mm3 (0.0-0.8); Monocytes % (Auto) 4 % (0-12); Neutrophils # (Auto) 4.3 Thou/mm3 (1.8-7.7); Neutrophils % (Auto) 67 % (37-80); Nucleated Red Blood Cell # 0.00 Thou/mm3 (0.00-0.00); Nucleated Red Blood Cell % 0 /100 WBC (0); Platelet Count 167 Thou/mm3 (140-440); RDW Standard Deviation 46.2 fL (36.4-46.3); Red Blood Count 4.06 Miln/mm3 (4.00-5.20); White Blood Count 6.3 Thou/mm3 (3.6-11.0)
[2025-03-04 06:44] LABS: Alanine Aminotransferase 20 U/L (10-49); Albumin, Serum 3.8 gm/dL (3.5-5.0); Albumin/Globulin Ratio 1.5 (1.2-2.2); Alkaline Phosphatase 65 U/L (46-116); Anion Gap 12 (7-16); Aspartate Amino Transferase 18 U/L (0-34); BUN/Creatinine Ratio 28 Ratio (12-20); Bilirubin,Total 0.4 mg/dL (0.3-1.2); Blood Urea Nitrogen 11 mg/dL (9-23); Calcium 8.8 mg/dL (8.3-10.6); Calcium (Corrected) 9.0 mg/dL (8.5-10.1); Carbon Dioxide 25.4 mMol/L (20.0-31.0); Chloride 109 mMol/L (98-107); Creatinine (Component) 0.4 mg/dL (0.6-1.3); Estimated Creatinine Clearance 146.4 mL/min (>60); Globulin 2.6 gm/dL (2.3-3.5); Glucose 133 mg/dL (74-106); Magnesium 1.5 mg/dL (1.6-2.6); Osmolality,Calculated 291 (275-295); Phosphorous 2.2 mg/dL (2.4-5.1); Potassium 3.6 mMol/L (3.4-5.1); Sodium 146 mMol/L (136-145); Total Protein 6.4 gm/dL (5.7-8.2); eGFR > 60 See Note
[2025-03-04] MEDS: METHENAMINE HIPPURATE 1 GM TABLET GT ×2 (08:48→16:30)
[2025-03-04] MEDS: ASCORBIC ACID 250 MG TABLET 1000 MG GT ×2 (08:49→20:22)
[2025-03-04] MEDS: LEVOFLOXACIN 250 MG TABLET 500 MG PO (08:49)
[2025-03-04] MEDS: MULTIVITAMIN 15 ML UDC GT (08:49)
[2025-03-04] MEDS: levETIRAcetam LIQD 500 MG/5 ML UDC GT ×2 (08:49→20:22)
[2025-03-04] MEDS: POLYETHYLENE GLYCOL 17 GM PACKET GT (08:49)
[2025-03-04] MEDS: METOPROLOL TARTRATE 25 MG TABLET GT (08:50)
[2025-03-04] MEDS: VENLAFAXINE 37.5 MG TABLET 75 MG GT (08:51)
[2025-03-04] MEDS: LANSOPRAZOLE 30 MG TAB.RAP.DR GT ×2 (08:51→20:23)
[2025-03-04] MEDS: ZINC SULFATE 220 MG CAPSULE GT (08:51)
[2025-03-04] MEDS: CHOLECALCIFEROL (Vitamin D3) 1,000 IU TABLET 5000 IU GT (08:52)
[2025-03-04] MEDS: POTASSIUM PHOS 22.5 MMOL in SODIUM CHLORIDE 0.9% 500 ML 500 ML 82.778 MMOL IV (09:41)
[2025-03-04] MEDS: Magnesium Sulfate 4 GM Ivpb 4 GM/50 ML BAG IV (09:42)
--- NOTE | 2025-03-04 11:39 | ESPR_ITS ---
Documentation for date of: 03/04/25 Subjective Subjective Interval history: Overnight patient had a rapid response called after she started to experience agitation, increased work of breathing, and wheezing. Patient was upgraded to telemetry, was put on oxygen 5 L, On auscultation patient was found to have wheezing and was given breathing treatment, her symptoms continue to improve, suspicion of aspiration can be the trigger for that reason her tube feeds were held. Patient was noted to be also anxious for that reason she was given 1 dose of Ativan 2 mg. Chest x-ray was ordered and there was no significant changes. Exam Vital Signs Temp Pulse Resp BP Pulse Ox O2 Del Method O2 Flow Rate 97.1 F 83 29 H 127/90 H 97 Nasal Cannula 5 03/04/25 08:00 03/04/25 08:50 03/04/25 08:00 03/04/25 08:50 03/04/25 08:00 03/04/25 08:00 03/04/25 06:04 Narrative Exam GEN: Spastic, alert, responds to yes or no questions and mumbles some words. Somehow looks better than yesterday, spastic extremities HEENT: NC/AC, PERRLA, oral mucosa moist CVS: RRR, S1-S2 present, no murmurs appreciated RESP: Diffuse wheezing bilaterally, no use of accessory muscles. Was on 5 L of oxygen decreased to 3 L and tolerated well with oxygen saturation of 95% GI: PEG tube in place, no discharge, soft,non distended, non tender, NBS MSK: Spastic extremities SKIN: warm and dry MANAGER CLIENT SUPPORT: Patient has history of cerebral palsy, spastic extremities, unable to assess cranial nerves or sensation Objective Labs 03/04/25 05:44 03/04/25 05:44 Labs: Laboratory Results - last 24 hr 03/03/25 03/03/25 03/04/25 13:40 19:15 05:44 WBC 6.3 RBC 4.06 Hgb 12.1 Hct 37.1 MCV 91 MCH 29.8 MCHC 32.6 RDW Std Deviation 46.2 Plt Count 167 D Neut % (Auto) 67 Lymph % (Auto) 13 [place] % (Auto) 4 Eos % (Auto) 0 Baso % (Auto) 0 Neut # (Auto) 4.3 Lymph # (Auto) 0.8 L [place] # (Auto) 0.3 Eos # (Auto) 0.0 Baso # (Auto) 0.0 Immature Gran # (Auto) 0.95 H Absolute Nucleated RBC 0.00 Immature Gran % 15 H Nucleated RBC % 0 VBG pH 7.50 VBG pCO2 32 L D VBG pO2 62 H VBG O2 Sat (Robyn) 94 L VBG Base Excess 2 Sodium 147 H 146 H Potassium 3.2 L D 3.6 Chloride 109 H 109 H Carbon Dioxide 27.4 25.4 Anion Gap 11 12 BUN 10 11 Creatinine 0.4 L 0.4 L Estim Creat Clear Calc 146.4 146.4 eGFR > 60 > 60 BUN/Creatinine Ratio 25 H 28 H Glucose 128 H 133 H Calculated Osmolality 293 291 Calcium 8.3 8.8 Corrected Calcium 8.8 9.0 Phosphorus 3.0 2.2 L Magnesium 1.5 L Total Bilirubin 0.4 AST 18 ALT 20 Alkaline Phosphatase 65 Total Protein 6.4 Albumin 3.4 L 3.8 Globulin 2.6 Albumin/Globulin Ratio 1.5 ABG Interpretation ABG results: 03/01/25 03/03/25 16:48 19:15 VBG pH 7.36 7.50 VBG pCO2 42 32 L D VBG pO2 54 62 H VBG Base Excess -2 2 Quality Measures Quality Measures sepsis Current suspected stage: sepsis Possible source: genitourinary Blood cultures ordered: completed in ED Antibiotic ordered: Yes Assessment & Plan Assessment Current Active Medications: Generic Name Dose Route Start Last Admin Trade Name Freq PRN Reason Stop Dose Admin Acetylcysteine 3 ml 03/03/25 19:00 03/04/25 06:00 Acetylcysteine Rt Melanie 10% 4 Ml Nebu INH 04/02/25 18:59 3 ml Q6HRRT NOMAN Administration Ascorbic Acid 1,000 mg 03/02/25 09:00 03/04/25 08:49 Ascorbic Acid 250 Mg Tablet GT 04/01/25 08:59 1,000 mg BID NOMAN Administration Balsam [place] Oil 0 gm 03/02/25 06:00 03/04/25 05:48 Balsam [place] Oil (Venelex) 60 Gm Tube TOP 04/01/25 05:59 1 applicatio TID NOMAN Administration Methenamine 0 ea 03/02/25 08:30 03/04/25 08:48 Hippurate 1 Gm GT 04/01/25 08:29 1 tablet Tablet BIDWM NOMAN Administration Guaifenesin 100 mg 03/03/25 11:59 03/04/25 05:47 Guaifenesin Syrup 200 Mg/10 Ml Udc PO 04/02/25 11:58 100 mg QID PRN Administration COUGH Protocol Acetaminophen 1,000 mg in 100 mls @ 250 mls/hr 03/02/25 01:23 03/02/25 10:05 Ofirmev Inj IV Infused Q6HR PRN Infusion Pain 1-3 or Fever>100.1 Magnesium Sulfate 4 gm in 50 mls @ 12.5 mls/hr 03/04/25 08:20 03/04/25 09:42 Magnesium Sulfate Ivpb IV 03/04/25 12:19 12.5 mls/hr X1 ONE Administration Potassium Phosphate 22.5 mmol/ 507.5 mls @ 82.778 mls/hr 03/04/25 08:20 03/04/25 09:41 Sodium Chloride IV 03/04/25 14:27 82.778 mls/hr X1 ONE Administration Lansoprazole 30 mg 03/02/25 09:00 03/04/25 08:51 Lansoprazole 30 Mg Tab.Rap. GT 04/01/25 08:59 30 mg BID NOMAN Administration Levalbuterol HCl 0.63 mg 03/02/25 02:00 03/04/25 06:01 Levalbuterol Rt 0.63 Mg/3 Ml Nebu INH 04/01/25 01:59 0.63 mg Q6HRRT NOMAN Administration Levetiracetam 500 mg 03/02/25 09:00 03/04/25 08:49 Levetiracetam Liqd 500 Mg/5 Ml Udc GT 04/01/25 08:59 500 mg BID NOMAN Administration Levofloxacin 500 mg 03/04/25 09:00 03/04/25 08:49 Levofloxacin 250 Mg Tablet PO 03/08/25 12:00 500 mg QDAY NOMAN Administration Lorazepam 2 mg 03/03/25 18:44 03/04/25 08:58 Lorazepam 0.5 Mg Tablet PO 03/08/25 18:43 2 mg Q6H PRN Administration agitation Melatonin 6 mg 03/02/25 21:00 03/03/25 20:36 Melatonin 3 Mg Tablet GT 04/01/25 20:59 6 mg HS NOMAN Administration Protocol Methylprednisolone Sodium Succinate 60 mg 03/04/25 11:37 Methylprednisolone Sod Succ 40 Mg Vial IVP 03/04/25 11:38 X1 ONE Metoprolol Tartrate 25 mg 03/02/25 09:00 03/04/25 08:50 Metoprolol Tartrate 25 Mg Tablet GT 04/01/25 08:59 25 mg QDAY NOMAN Administration Multivitamins/Minerals 15 ml 03/02/25 09:00 03/04/25 08:49 Multivitamin 15 Ml Udc GT 04/01/25 08:59 15 ml QDAY NOMAN Administration Olanzapine 20 mg 03/02/25 21:00 03/03/25 20:36 Olanzapine 5 Mg Tablet GT 04/01/25 20:59 20 mg HS NOMAN Administration Ondansetron HCl 4 mg 03/01/25 22:48 Ondansetron Inj 2 Mg/Ml Inj 2 Ml IVP 03/31/25 22:47 Q6H PRN NAUSEA OR VOMITING Protocol Polyethylene Glycol 17 gm 03/02/25 09:00 03/04/25 08:49 Polyethylene Glycol 17 Gm Packet GT 04/01/25 08:59 17 gm QOD NOMAN Administration Sennosides 1 tab 03/01/25 23:45 Senna Tablet GT 03/31/25 22:47 QDAY PRN constipation Protocol Trazodone HCl 50 mg 03/01/25 23:45 03/02/25 02:38 Trazodone Hcl 50 Mg Tablet GT 03/31/25 22:56 50 mg HS PRN Administration Sleep Venlafaxine HCl 75 mg 03/02/25 09:00 03/04/25 08:51 Venlafaxine 37.5 Mg Tablet GT 04/01/25 08:59 75 mg QAM NOMAN Administration Venlafaxine HCl 150 mg 03/02/25 21:00 03/03/25 20:35 Venlafaxine 37.5 Mg Tablet GT 04/01/25 20:59 150 mg HS NOMAN Administration Vitamin D 5,000 iu 03/02/25 09:00 03/04/25 08:52 Cholecalciferol (Vitamin D3) 1,000 Iu Tablet GT 04/01/25 08:59 5,000 iu QDAY NOMAN Administration Zinc Sulfate 220 mg 03/02/25 09:00 03/04/25 08:51 Zinc Sulfate 220 Mg Capsule GT 04/01/25 08:59 220 mg QDAY NOMAN Administration Plan Assessment & Plan Assessment Tamera Hansen is a 29-year-old female with a medical history significant for developmental delay (moderate intellectual disability), cerebral palsy, seizures, spastic quadriplegia, prior aspiration pneumonia, dislocated right hip, exotropia, s/p gastrotomy tube placement, and recurrent UTIs who presented to the Emergency Department via EMS from her [facility] ([facility]) for evaluation of shortness of breath and altered mental status. Patient was admitted for the work-up and management of sepsis r/o 2/2 UTI. #Complicated UTI ? likely 2/2 P. mirabilis #Kidney stones ? likely 2/2 P. mirabilis #Sepsis SIRS criteria: Pt met 2 SIRS criteria at presentation with HR 151 >90; WBC 12.3 >12; UA in the ED was positive for signs of UTI: U WBC 306, leukocyte esterase, RBC 202, U blood 3+, 2+ bacteria. Of note, patient has had similar presentations to this hospital in the past. Of note, UCx grew Proteus mirabilis on latest three hospital presentations, in January, August 2024 and June 2024. The increased alkalinity of the current admission's UA is also consistent with a UTI caused by Proteus mirabilis. CTAP: Numerous bilateral calcifications including 20 mm calculus in the right renal pelvis on the right and staghorn calculus occupying lower pole calyces left, kidney and left renal pelvis, the pelvic portion measuring 18 mm UCx positive for gram negative bacteria (03/02), BCx was negative 48 hours, urology Dr. Hendrickson recommended no surgical intervention at this time. Diagnostic Inquiry -Follow up on BCx, UCx; preliminary urine culture: GNR; Prelim blood culture shows no growth after 48 hours -Follow up on MRSA nasal screen --> MRSA screen negative for MRSA Treatment Plan -pending urine culture, switched to levofloxacin per ID recs -Restarted home medication: GT methenamine hippurate 1 gm BID -IV Tylenol 1000 mg in 100 mL q6HR prn for fever -consulted Infectious Disease, appreciate recommendations. -Continue to monitor CBC, CMP #Atypical versus Gram negative phill Pneumonia #Prior history of aspiration pneumonia #Cerebral palsy Patient is exhibiting high-grade fever, shortness of breath, tachypnea, altered mental status, and diffuse crackles upon lung auscultation CXR suspicious for early pneuomnia of the left base Septic criteria described above Diagnostic Inquiry -Follow up on BCx -Follow up on MRSA nasal screen Treatment Plan -levofloxacin 500mg qd -Inhaled Levalbuterol 1.25 mg q6HRRT, ipratropium 0.5 mg inhalation every 6 hours BUSINESS INTEGRATION MANAGER -Aspiration precautions -Flu and pneumonia vaccine screen ?Resume tube feeds #Chronic encephalopathy #Agitation #Anxiety #Developmental delay (moderate intellectual disability) Per hospital receiving clerk, patient does not seem to be at cognitive baseline since onset of fever CT head: Negative for acute hemorrhage, mass effect or midline shift Patient reportedly has a tendency to become agitated in hospital settings (though this has not occurred during the current admission yet) Diagnostic Inquiry -No current recommendation Treatment Plan -Restarted home medications: GT Zyprexa 20 mg HS for agitation/delirium -Restarted home medication: GT Effexor 75 mg qAM and 150 mg qHS, GT trazodone 50 mg HS prn for anxiety #Chronic medical problems #Seizures #Spastic quadriplegia #GERD #Gastrotomy tube Diagnostic Inquiry -No current recommendation Treatment Plan -Restarted home medications: GT Keppra 500 mg BID (seizures), GT Prevacid 30 mg BID (GERD) -Dietitian referral Hospital Management: Disposition: undergoing work-up and management of sepsis 2/2 complicated UTI Diet: NPO, tube feeds GI Prophylaxis: Prevacid Bowel Prophylaxis: Senna DVT Prophylaxis: SCDs CODE STATUS: Full Code - Patient's plan and care discussed with my attending, Dr. Lady Jones MD Internal Medicine PGY-3 Attending Provider Attestation/Addendum Carmina Rasmussen DO, attest that I was physically present for the dorado portions of the service and evaluated the patient with the resident and I reviewed and discussed the case with the resident and agree with the resident's findings and plans of care as documented above Patient seen eval this a.m. Patient was upgraded overnight due to acute respiratory distress requiring 5 L nasal cannula. Patient continues to have scattered rhonchi and upper airway wheezing. Patient appears to be at baseline mental status otherwise. Will give another dose of Solu-Medrol and continue with breathing treatments. Per nurse at bedside, patient was agitated this morning but improved with Ativan which she takes as needed at home. Patient is currently on 4 L nasal cannula, will titrate as needed. She has been switched to levofloxacin as urine cultures are pending. Will cover for also pneumonia. Continue with chest PT.
[2025-03-04 16:24] LABS: Path Review Blood Smear Sent to Pathologist
[2025-03-04] MEDS: IPRATROPIUM RT 0.5 MG/ 2.5 ML NEBU INH (18:51)
[2025-03-04] MEDS: VENLAFAXINE 37.5 MG TABLET 150 MG GT (20:22)
[2025-03-04] MEDS: MELATONIN 3 MG TABLET 6 MG GT (20:22)
[2025-03-05] VITALS (12 sets, daily range): BP systolic 113–150; BP diastolic 76–109; PULSE 77–131; RESP 19–28; TEMP 35.9–36.6; O2SAT 95–100
[2025-03-05] MEDS: IPRATROPIUM RT 0.5 MG/ 2.5 ML NEBU INH ×4 (01:47→18:56)
[2025-03-05] MEDS: ACETYLCYSTEINE RT SOL 10% 4 ML NEBU 3 ML INH ×3 (01:47→18:56)
[2025-03-05] MEDS: BALSAM PERU/CASTOR OIL (Venelex) 60 GM TUBE TOP ×3 (05:15→21:17)
[2025-03-05 05:58] LABS: Basophils # (Auto) 0.0 Thou/mm3 (0.0-0.2); Basophils % (Auto) 0 % (0-2.5); Eosinophils # (Auto) 0.0 Thou/mm3 (0.0-0.5); Eosinophils % (Auto) 0 % (0-10); Hematocrit 41.8 % (36.0-46.0); Hemoglobin 14.0 g/dL (12.0-16.0); Immature Granulocytes Auto 1.43 Thou/mm3 (0.00-0.00); Lymphocytes # (Auto) 1.7 Thou/mm3 (1.0-4.8); Lymphocytes % (Auto) 20 % (10-50); Mean Corpuscular HGB Conc 33.5 g/dl (31.0-37.0); Mean Corpuscular Hemoglobin 30.4 pg (25.0-35.0); Mean Corpuscular Volume 91 fL (80-100); Monocytes # (Auto) 0.5 Thou/mm3 (0.0-0.8); Monocytes % (Auto) 6 % (0-12); Neutrophils # (Auto) 5.0 Thou/mm3 (1.8-7.7); Neutrophils % (Auto) 58 % (37-80); Nucleated Red Blood Cell # 0.00 Thou/mm3 (0.00-0.00); Nucleated Red Blood Cell % 0 /100 WBC (0); Platelet Count 175 Thou/mm3 (140-440); RDW Standard Deviation 44.8 fL (36.4-46.3); Red Blood Count 4.60 Miln/mm3 (4.00-5.20); White Blood Count 8.6 Thou/mm3 (3.6-11.0)
[2025-03-05 06:18] LABS: Alanine Aminotransferase 23 U/L (10-49); Albumin, Serum 3.9 gm/dL (3.5-5.0); Albumin/Globulin Ratio 1.5 (1.2-2.2); Alkaline Phosphatase 64 U/L (46-116); Anion Gap 13 (7-16); Aspartate Amino Transferase 22 U/L (0-34); BUN/Creatinine Ratio 35 Ratio (12-20); Bilirubin,Total 0.4 mg/dL (0.3-1.2); Blood Urea Nitrogen 14 mg/dL (9-23); Calcium 9.0 mg/dL (8.3-10.6); Calcium (Corrected) 9.1 mg/dL (8.5-10.1); Carbon Dioxide 25.9 mMol/L (20.0-31.0); Chloride 106 mMol/L (98-107); Creatinine (Component) 0.4 mg/dL (0.6-1.3); Estimated Creatinine Clearance 161.1 mL/min (>60); Globulin 2.6 gm/dL (2.3-3.5); Glucose 90 mg/dL (74-106); Magnesium 2.1 mg/dL (1.6-2.6); Osmolality,Calculated 289 (275-295); Phosphorous 3.6 mg/dL (2.4-5.1); Potassium 3.5 mMol/L (3.4-5.1); Sodium 145 mMol/L (136-145); Total Protein 6.5 gm/dL (5.7-8.2); eGFR > 60 See Note
--- NOTE | 2025-03-05 08:37 | PD.RESPRO ---
Documentation for date of: 03/05/25 Subjective Subjective Interval history: Patient was evaluated bedside with well service pump equipment operator from facility present. Chest PT just worked with patient. She is breathing fine on 2-3L nasal cannula. Acid Supervisor reports patient is usually more talkative and will yell or panic at loud noises. Patient did verbalize being ready to go home. Overall no new complaints as well service pump equipment operator confirms patient is returning to baseline. Exam Vital Signs Temp Pulse Resp BP Pulse Ox O2 Del Method O2 Flow Rate 97.8 F 94 21 H 129/96 H 99 Room Air 5 03/05/25 04:00 03/05/25 06:42 03/05/25 06:42 03/05/25 04:00 03/05/25 06:42 03/04/25 20:00 03/05/25 06:42 Narrative Exam GEN: Spastic, alert, responds to yes or no questions and mumbles some words. Spastic extremities HEENT: NC/AC, PERRLA, oral mucosa moist CVS: RRR, S1-S2 present, no murmurs appreciated RESP: Diffuse wheezing bilaterally, no use of accessory muscles. Was on 5 L of oxygen decreased to 3 L and tolerated well with oxygen saturation of 95% GI: PEG tube in place, no discharge, soft,non distended, non tender, NBS MSK: Spastic extremities SKIN: warm and dry MERCHANDISE TEAM MANAGER: Patient has history of cerebral palsy, spastic extremities, unable to assess cranial nerves or sensation Objective Labs 03/07/25 05:05 03/07/25 05:05 Labs: Laboratory Results - last 24 hr 03/04/25 03/05/25 05:44 05:32 WBC 8.6 RBC 4.60 Hgb 14.0 Hct 41.8 MCV 91 MCH 30.4 MCHC 33.5 RDW Std Deviation 44.8 Plt Count 175 Neut % (Auto) 58 Lymph % (Auto) 20 [place] % (Auto) 6 Eos % (Auto) 0 Baso % (Auto) 0 Neut # (Auto) 5.0 Lymph # (Auto) 1.7 [place] # (Auto) 0.5 Eos # (Auto) 0.0 Baso # (Auto) 0.0 Immature Gran # (Auto) 1.43 H Absolute Nucleated RBC 0.00 Immature Gran % 17 H Nucleated RBC % 0 Smear Path Review Sent to Pathologist Sodium 145 Potassium 3.5 Chloride 106 Carbon Dioxide 25.9 Anion Gap 13 BUN 14 Creatinine 0.4 L Estim Creat Clear Calc 161.1 eGFR > 60 BUN/Creatinine Ratio 35 H Glucose 90 Calculated Osmolality 289 Calcium 9.0 Corrected Calcium 9.1 Phosphorus 3.6 Magnesium 2.1 Total Bilirubin 0.4 AST 22 ALT 23 Alkaline Phosphatase 64 Total Protein 6.5 Albumin 3.9 Globulin 2.6 Albumin/Globulin Ratio 1.5 ABG Interpretation ABG results: 03/01/25 03/03/25 16:48 19:15 VBG pH 7.36 7.50 VBG pCO2 42 32 L D VBG pO2 54 62 H VBG Base Excess -2 2 Quality Measures Quality Measures sepsis Current suspected stage: sepsis Possible source: genitourinary Blood cultures ordered: completed in ED Antibiotic ordered: Yes Assessment & Plan Assessment Current Active Medications: Generic Name Dose Route Start Last Admin Trade Name Freq PRN Reason Stop Dose Admin Acetylcysteine 3 ml 03/03/25 19:00 03/05/25 06:41 Acetylcysteine Rt Melanie 10% 4 Ml Nebu INH 04/02/25 18:59 Not Given Q6HRRT NOMAN Ascorbic Acid 1,000 mg 03/02/25 09:00 03/04/25 20:22 Ascorbic Acid 250 Mg Tablet GT 04/01/25 08:59 1,000 mg BID NOMAN Administration Balsam [place] Oil 0 gm 03/02/25 06:00 03/05/25 05:15 Balsam [place] Oil (Venelex) 60 Gm Tube TOP 04/01/25 05:59 1 applicatio TID NOMAN Administration Methenamine 0 ea 03/02/25 08:30 03/04/25 16:30 Hippurate 1 Gm GT 04/01/25 08:29 1 tablet Tablet BIDWM NOMAN Administration Guaifenesin 100 mg 03/03/25 11:59 03/04/25 05:47 Guaifenesin Syrup 200 Mg/10 Ml Udc PO 04/02/25 11:58 100 mg QID PRN Administration COUGH Protocol Acetaminophen 1,000 mg in 100 mls @ 250 mls/hr 03/02/25 01:23 03/02/25 10:05 Ofirmev Inj IV Infused Q6HR PRN Infusion Pain 1-3 or Fever>100.1 Ipratropium [place] 0.5 mg 03/04/25 19:00 03/05/25 06:41 Ipratropium Rt 0.5 Mg/ 2.5 Ml Nebu INH 04/03/25 18:59 0.5 mg Q6HRRT NOMAN Administration Lansoprazole 30 mg 03/02/25 09:00 03/04/25 20:23 Lansoprazole 30 Mg Tab.Rap. GT 04/01/25 08:59 30 mg BID NOMAN Administration Levalbuterol HCl 1.25 mg 03/04/25 15:42 Levalbuterol Rt 1.25 Mg/0.5 Ml Nebu INH 04/03/25 15:41 Q6HRRT PRN WHEEZING Levetiracetam 500 mg 03/02/25 09:00 03/04/25 20:22 Levetiracetam Liqd 500 Mg/5 Ml Udc GT 04/01/25 08:59 500 mg BID NOMAN Administration Levofloxacin 500 mg 03/04/25 09:00 03/04/25 08:49 Levofloxacin 250 Mg Tablet PO 03/08/25 12:00 500 mg QDAY NOMAN Administration Lorazepam 2 mg 03/03/25 18:44 03/04/25 08:58 Lorazepam 0.5 Mg Tablet PO 03/08/25 18:43 2 mg Q6H PRN Administration agitation Melatonin 6 mg 03/02/25 21:00 03/04/25 20:22 Melatonin 3 Mg Tablet GT 04/01/25 20:59 6 mg HS NOMAN Administration Protocol Metoprolol Tartrate 25 mg 03/02/25 09:00 03/04/25 08:50 Metoprolol Tartrate 25 Mg Tablet GT 04/01/25 08:59 25 mg QDAY NOMAN Administration Multivitamins/Minerals 15 ml 03/02/25 09:00 03/04/25 08:49 Multivitamin 15 Ml Udc GT 04/01/25 08:59 15 ml QDAY NOMAN Administration Olanzapine 20 mg 03/02/25 21:00 03/04/25 20:22 Olanzapine 5 Mg Tablet GT 04/01/25 20:59 20 mg HS NOMAN Administration Ondansetron HCl 4 mg 03/01/25 22:48 Ondansetron Inj 2 Mg/Ml Inj 2 Ml IVP 03/31/25 22:47 Q6H PRN NAUSEA OR VOMITING Protocol Polyethylene Glycol 17 gm 03/02/25 09:00 03/04/25 08:49 Polyethylene Glycol 17 Gm Packet GT 04/01/25 08:59 17 gm QOD NOMAN Administration Sennosides 1 tab 03/01/25 23:45 Senna Tablet GT 03/31/25 22:47 QDAY PRN constipation Protocol Sodium Chloride 3 ml 03/04/25 15:42 Sodium Chloride Rt Melanie 0.9% 3 Ml Nebu INH 04/03/25 15:41 PRN PRN SOLN Trazodone HCl 50 mg 03/01/25 23:45 03/04/25 23:30 Trazodone Hcl 50 Mg Tablet GT 03/31/25 22:56 50 mg HS PRN Administration Sleep Venlafaxine HCl 75 mg 03/02/25 09:00 03/04/25 08:51 Venlafaxine 37.5 Mg Tablet GT 04/01/25 08:59 75 mg QAM NOMAN Administration Venlafaxine HCl 150 mg 03/02/25 21:00 03/04/25 20:22 Venlafaxine 37.5 Mg Tablet GT 04/01/25 20:59 150 mg HS NOMAN Administration Vitamin D 5,000 iu 03/02/25 09:00 03/04/25 08:52 Cholecalciferol (Vitamin D3) 1,000 Iu Tablet GT 04/01/25 08:59 5,000 iu QDAY NOMAN Administration Zinc Sulfate 220 mg 03/02/25 09:00 03/04/25 08:51 Zinc Sulfate 220 Mg Capsule GT 04/01/25 08:59 220 mg QDAY NOMAN Administration Plan Assessment & Plan Assessment Tamera Hansen is a 29-year-old female with a medical history significant for developmental delay (moderate intellectual disability), cerebral palsy, seizures, spastic quadriplegia, prior aspiration pneumonia, dislocated right hip, exotropia, s/p gastrotomy tube placement, and recurrent UTIs who presented to the Emergency Department via EMS from her jail ([facility]) for evaluation of shortness of breath and altered mental status. Patient was admitted for the work-up and management of sepsis r/o 2/2 UTI. Urine culture came back with resistance to levo, stopped levo and began azithromycin for dual UTI and pneumonia coverage. #Complicated UTI ? likely 2/2 P. mirabilis #Kidney stones ? likely 2/2 P. mirabilis #Sepsis SIRS criteria: Pt met 2 SIRS criteria at presentation with HR 151 >90; WBC 12.3 >12; UA in the ED was positive for signs of UTI: U WBC 306, leukocyte esterase, RBC 202, U blood 3+, 2+ bacteria. Of note, patient has had similar presentations to this hospital in the past. Of note, UCx grew Proteus mirabilis on latest three hospital presentations, in January, August 2024 and June 2024. The increased alkalinity of the current admission's UA is also consistent with a UTI caused by Proteus mirabilis. CTAP: Numerous bilateral calcifications including 20 mm calculus in the right renal pelvis on the right and staghorn calculus occupying lower pole calyces left, kidney and left renal pelvis, the pelvic portion measuring 18 mm UCx positive for gram negative bacteria (03/02), BCx was negative 48 hours, urology Dr. Hendrickson recommended no surgical intervention at this time. Diagnostic Inquiry -Follow up on BCx, UCx; preliminary urine culture: Proteus Mirabella's, resistance to levo; Prelim blood culture shows no growth after 48 hours -Follow up on MRSA nasal screen --> MRSA screen negative for MRSA Treatment Plan -pending urine culture, Stop levo due to resistance, patient was started on ceftriaxone -Restarted home medication: GT methenamine hippurate 1 gm BID -IV Tylenol 1000 mg in 100 mL q6HR prn for fever -consulted Infectious Disease, -Continue to monitor CBC, CMP #Atypical versus Gram negative phill Pneumonia #Prior history of aspiration pneumonia #Cerebral palsy Patient is exhibiting high-grade fever, shortness of breath, tachypnea, altered mental status, and diffuse crackles upon lung auscultation CXR suspicious for early pneuomnia of the left base Septic criteria described above Diagnostic Inquiry -Follow up on BCx: same as above -Follow up on MRSA nasal screen: Negative Treatment Plan - Patient was switched to azithromycin and ceftriaxone on 05 March 2025 due to bacterial resistance in the urine analysis -Inhaled Levalbuterol 1.25 mg q6HRRT, ipratropium 0.5 mg inhalation every 6 hours STUDENT LIFE DEAN -Aspiration precautions -Flu and pneumonia vaccine screen ?Resume tube feeds -Continue Chest PT and breathing treatments #Chronic encephalopathy #Agitation #Anxiety #Developmental delay (moderate intellectual disability) Per well service pump equipment operator, patient does not seem to be at cognitive baseline since onset of fever. As of 03/05 patient is more talkative and close to being at baseline per well service pump equipment operator CT head: Negative for acute hemorrhage, mass effect or midline shift Patient reportedly has a tendency to become agitated in hospital settings Diagnostic Inquiry -No current recommendation Treatment Plan -Restarted home medications: GT Zyprexa 20 mg HS for agitation/delirium -Restarted home medication: GT Effexor 75 mg qAM and 150 mg qHS, GT trazodone 50 mg HS prn for anxiety #Chronic medical problems #Seizures #Spastic quadriplegia #GERD #Gastrotomy tube Diagnostic Inquiry -No current recommendation Treatment Plan -Restarted home medications: GT Keppra 500 mg BID (seizures), GT Prevacid 30 mg BID (GERD) -Dietitian referral Hospital Management: Disposition: undergoing work-up and management of sepsis 2/2 complicated UTI Diet: NPO, tube feeds GI Prophylaxis: Prevacid Bowel Prophylaxis: Senna DVT Prophylaxis: SCDs CODE STATUS: Full Code - Patient's plan and care discussed with my attending, Dr. Narayanan and supervising resident Chente Jones MD Note written by Mic Cooley MD PGY-1 Attending Provider Attestation/Addendum I, Carmina Narayanan, DO, attest that I was physically present for the dorado portions of the service and evaluated the patient with the resident and I reviewed and discussed the case with the resident and agree with the resident's findings and plans of care as documented above Patient seen and eval this a.m. Patient remains at baseline mental status, but has been very anxious per nursing. She remains on 4-5L/NC. She continues to have scattered rhonchi, but no wheezing. Ucx is positive for proteus mirabilis, but not sensitive to levofloxacin. Will switch to rocephin and add axithromycin to cover for pneumonia. Continue wtih breathing treatments with mucolytics and chest PT. titrate O2 as tolerated.
[2025-03-05] MEDS: levETIRAcetam LIQD 500 MG/5 ML UDC GT ×2 (08:55→20:34)
[2025-03-05] MEDS: MULTIVITAMIN 15 ML UDC GT (08:55)
[2025-03-05] MEDS: METHENAMINE HIPPURATE 1 GM TABLET GT ×2 (08:55→17:26)
[2025-03-05] MEDS: ASCORBIC ACID 250 MG TABLET 1000 MG GT ×2 (08:56→20:33)
[2025-03-05] MEDS: LANSOPRAZOLE 30 MG TAB.RAP.DR GT ×2 (08:57→20:33)
[2025-03-05] MEDS: METOPROLOL TARTRATE 25 MG TABLET GT (08:57)
[2025-03-05] MEDS: LEVOFLOXACIN 250 MG TABLET 500 MG PO (08:57)
[2025-03-05] MEDS: ZINC SULFATE 220 MG CAPSULE GT (08:57)
[2025-03-05] MEDS: CHOLECALCIFEROL (Vitamin D3) 1,000 IU TABLET 5000 IU GT (08:59)
[2025-03-05] MEDS: VENLAFAXINE 37.5 MG TABLET 75 MG GT (09:50)
[2025-03-05] MEDS: AZITHROMYCIN 250 MG TABLET 500 MG PO (15:27)
[2025-03-05] MEDS: cefTRIAXone/D5w 1gm IV premix 1 GM/50 ML BAG IV (15:27)
[2025-03-05] MEDS: MELATONIN 3 MG TABLET 6 MG GT (20:34)
[2025-03-05] MEDS: VENLAFAXINE 37.5 MG TABLET 150 MG GT (20:34)
--- NOTE | 2025-03-05 22:21 | PC.NURSE ---
MD mccallum made aware of patient HR sustaining in the 130's-140's, BP 98/81, temp 97.8, respirations of 24, o2 saturations of 96% 3LNC, no new orders given at this time.
[2025-03-06] VITALS (12 sets, daily range): BP systolic 100–135; BP diastolic 75–96; PULSE 91–151; RESP 18–25; TEMP 36.1–36.4; O2SAT 93–100
[2025-03-06] MEDS: ACETYLCYSTEINE RT SOL 10% 4 ML NEBU 3 ML INH ×2 (00:59→06:13)
[2025-03-06] MEDS: IPRATROPIUM RT 0.5 MG/ 2.5 ML NEBU INH ×4 (01:00→18:45)
[2025-03-06] MEDS: BALSAM PERU/CASTOR OIL (Venelex) 60 GM TUBE TOP ×3 (05:21→21:06)
[2025-03-06 06:13] LABS: Basophils # (Auto) 0.0 Thou/mm3 (0.0-0.2); Basophils % (Auto) 0 % (0-2.5); Eosinophils # (Auto) 0.0 Thou/mm3 (0.0-0.5); Eosinophils % (Auto) 0 % (0-10); Hematocrit 43.8 % (36.0-46.0); Hemoglobin 14.6 g/dL (12.0-16.0); Immature Granulocytes Auto 1.25 Thou/mm3 (0.00-0.00); Lymphocytes # (Auto) 2.5 Thou/mm3 (1.0-4.8); Lymphocytes % (Auto) 24 % (10-50); Mean Corpuscular HGB Conc 33.3 g/dl (31.0-37.0); Mean Corpuscular Hemoglobin 30.0 pg (25.0-35.0); Mean Corpuscular Volume 90 fL (80-100); Monocytes # (Auto) 0.7 Thou/mm3 (0.0-0.8); Monocytes % (Auto) 6 % (0-12); Neutrophils # (Auto) 6.0 Thou/mm3 (1.8-7.7); Neutrophils % (Auto) 57 % (37-80); Nucleated Red Blood Cell # 0.00 Thou/mm3 (0.00-0.00); Nucleated Red Blood Cell % 0 /100 WBC (0); Platelet Count 214 Thou/mm3 (140-440); RDW Standard Deviation 43.8 fL (36.4-46.3); Red Blood Count 4.86 Miln/mm3 (4.00-5.20); White Blood Count 10.4 Thou/mm3 (3.6-11.0)
[2025-03-06 06:40] LABS: Alanine Aminotransferase 26 U/L (10-49); Albumin, Serum 3.8 gm/dL (3.5-5.0); Albumin/Globulin Ratio 1.5 (1.2-2.2); Alkaline Phosphatase 61 U/L (46-116); Anion Gap 12 (7-16); Aspartate Amino Transferase 18 U/L (0-34); BUN/Creatinine Ratio 28 Ratio (12-20); Bilirubin,Total 0.4 mg/dL (0.3-1.2); Blood Urea Nitrogen 11 mg/dL (9-23); Calcium 8.8 mg/dL (8.3-10.6); Calcium (Corrected) 9.0 mg/dL (8.5-10.1); Carbon Dioxide 25.6 mMol/L (20.0-31.0); Chloride 104 mMol/L (98-107); Creatinine (Component) 0.4 mg/dL (0.6-1.3); Estimated Creatinine Clearance 158.6 mL/min (>60); Globulin 2.6 gm/dL (2.3-3.5); Glucose 110 mg/dL (74-106); Magnesium 1.8 mg/dL (1.6-2.6); Osmolality,Calculated 283 (275-295); Phosphorous 4.1 mg/dL (2.4-5.1); Potassium 3.4 mMol/L (3.4-5.1); Sodium 142 mMol/L (136-145); Total Protein 6.4 gm/dL (5.7-8.2); eGFR > 60 See Note
--- NOTE | 2025-03-06 07:51 | XR_ITS ---
Examination: AP chest single view Technique one AP portable semiupright chest single view Date and time: March 06, 2025 0835 hours Comparison March 03, 2025 INDICATIONS: Shortness of breath wheezing beginning today. FINDINGS: Pneumonia left base retrocardiac Reduced inspiratory effort. Moderate elevation right hemidiaphragm. Normal heart size IMPRESSION: Pneumonia left base
--- NOTE | 2025-03-06 07:55 | EKG_ITS ---
[facility] Test Date: 2025-03-06 Pat Name: MIRELA FAROOQ [facility] Gender: Female Oxygen Furnace Operator: MYRNA : 1995 Requested By: Valerie Cobian Order Number: [id number] Reading MD: Valerie Cobian Measurements Intervals [place] Rate: 133 P: 55 [place]: 128 QRS: 127 QRSD: 78 T: 69 QT: 332 QTc: 494 Interpretive Statements SINUS TACHYCARDIA RIGHT VENTRICULAR HYPERTROPHY AND ST-T CHANGE POSSIBLE ANTERIOR MYOCARDIAL INFARCTION , OF INDETERMINATE AGE Compared to ECG 03/03/2025 20:46:37 Right ventricular hypertrophy now present ST (T wave) deviation now present Myocardial infarct finding now present Sinus rhythm no longer present Sinus arrhythmia no longer present Left posterior fascicular block no longer present T-wave abnormality no longer present /store/S0/[id number]
--- NOTE | 2025-03-06 07:57 | PC.NURSE ---
@0700- Pt appears flushed in the face, agitated with a HR 147bpm. Per noc shift Nathaniel RN at bedside, patient has had elevated HR and was given 2mg Ativan @0624 and at this time patient is with no resolve of symptoms. I called to notify Dr. Cooley @0715 of concern for patient. @0730- Dr. Cooley and Dr. Cobian at the bedside to assess patient.
[2025-03-06] MEDS: METHENAMINE HIPPURATE 1 GM TABLET GT ×2 (08:19→17:50)
[2025-03-06] MEDS: POTASSIUM CHLORIDE 10% 20 MEQ/15 ML UDC 40 MEQ GT (08:20)
[2025-03-06] MEDS: HYOSCYAMINE SULF 0.125 MG TAB.SUBL 0.25 MG GT (08:20)
[2025-03-06] MEDS: METOPROLOL TARTRATE 25 MG TABLET GT (08:21)
[2025-03-06] MEDS: ASCORBIC ACID 250 MG TABLET 1000 MG GT ×2 (08:21→20:57)
[2025-03-06] MEDS: CHOLECALCIFEROL (Vitamin D3) 1,000 IU TABLET 5000 IU GT (08:22)
[2025-03-06] MEDS: VENLAFAXINE 37.5 MG TABLET 75 MG GT (08:23)
[2025-03-06] MEDS: ZINC SULFATE 220 MG CAPSULE GT (08:24)
[2025-03-06] MEDS: LANSOPRAZOLE 30 MG TAB.RAP.DR GT ×2 (08:24→20:57)
[2025-03-06] MEDS: levETIRAcetam LIQD 500 MG/5 ML UDC GT ×2 (08:39→20:57)
[2025-03-06] MEDS: MULTIVITAMIN 15 ML UDC GT (08:40)
[2025-03-06] MEDS: AZITHROMYCIN 250 MG TABLET PO (08:40)
[2025-03-06] MEDS: cefTRIAXone/D5w 1gm IV premix 1 GM/50 ML BAG IV (08:44)
[2025-03-06 09:22] LABS: Lactate (Lactic Acid) 1.1 mMol/L (0.4-2.0)
[2025-03-06] MEDS: Magnesium Sulfate 2 GM Ivpb 2 GM/50 ML BAG IV (10:08)
--- NOTE | 2025-03-06 10:45 | PC.SS ---
SS spoke to Amara Reed [phone] from [facility], she informed SS that they can accept pt with O2, it will just need to be ordered and delivered to home. They use [employer]. Pt will need to be on 3-4 liters to allow titration if needed.
--- NOTE | 2025-03-06 11:08 | PD.IDPROG ---
Subjective Subjective Interval history: pt here the weekend on po regimen per others was changed off the regimen I put her on to a different one Exam Vital Signs Temp Pulse Resp BP Pulse Ox O2 Del Method O2 Flow Rate 97.3 F 141 H 19 100/75 93 L Nasal Cannula 2 03/06/25 08:00 03/06/25 08:21 03/06/25 08:00 03/06/25 08:21 03/06/25 08:00 03/06/25 04:00 03/06/25 06:21 Narrative Exam no change limited eval Objective - Internal Medicine Labs 03/06/25 05:30 03/06/25 05:30 Labs: Laboratory Results - last 24 hr 03/06/25 03/06/25 05:30 09:15 WBC 10.4 RBC 4.86 Hgb 14.6 Hct 43.8 MCV 90 MCH 30.0 MCHC 33.3 RDW Std Deviation 43.8 Plt Count 214 D Neut % (Auto) 57 Lymph % (Auto) 24 [place] % (Auto) 6 Eos % (Auto) 0 Baso % (Auto) 0 Neut # (Auto) 6.0 Lymph # (Auto) 2.5 [place]on # (Auto) 0.7 Eos # (Auto) 0.0 Baso # (Auto) 0.0 Immature Gran # (Auto) 1.25 H Absolute Nucleated RBC 0.00 Immature Gran % 12 H Nucleated RBC % 0 Sodium 142 Potassium 3.4 Chloride 104 Carbon Dioxide 25.6 Anion Gap 12 BUN 11 Creatinine 0.4 L Estim Creat Clear Calc 158.6 eGFR > 60 BUN/Creatinine Ratio 28 H Glucose 110 H Calculated Osmolality 283 Lactic Acid 1.1 Calcium 8.8 Corrected Calcium 9.0 Phosphorus 4.1 Magnesium 1.8 Total Bilirubin 0.4 AST 18 ALT 26 Alkaline Phosphatase 61 Total Protein 6.4 Albumin 3.8 Globulin 2.6 Albumin/Globulin Ratio 1.5 ABG Interpretation ABG results: 03/01/25 03/03/25 16:48 19:15 VBG pH 7.36 7.50 VBG pCO2 42 32 L D VBG pO2 54 62 H VBG Base Excess -2 2 Assessment & Plan A&P Narrative uti and possible early pneumonia. on O2. mild cxr changes. will go with levaquin for pneumonia and fosfomycin 3.0 gm x1 for uti as waiting for more micro seems a waste at this point in time prior place of residence ok with me at your discretion. ok for meds to be per peg if that is better for her with primary team taking charge of rx. will see again prn. usual rx of pneumonia is 7d btw and po ok if afebrile Time Spent With Patient Time: Total time spent is greater than 50% in coordination of care (as documented) at patient's floor/unit and/or counseling patient:
[2025-03-06] MEDS: FUROSEMIDE INJ 10 MG/ML 4ML VIAL 40 MG IVP (16:30)
--- NOTE | 2025-03-06 17:57 | ESPR_ITS ---
<Statement entered by Valerie Cobian MD - 03/06/25 21:03> I have reviewed the note and agree with the resident's assessment & plan with exceptions as below. I have personally reviewed labs, imaging, home meds/prior records, examined the patient, formulated and discussed management plan with the IM team. Pt examined at bedside today. Pt continuing to be on 5L NC, will attempt to wean down patient off oxygen, starting one dose Lasix 40 mg IV, continuing IV abx, breathing tx. Reports of diarrhea, stopping bowel regimen, giving hyocasmine, pt could be passing stone and is in pain, pt's HR continues to be elevated, sinus tachycardia. Repeat hematology and chemistry in AM. Valerie Cobian, PGY-2 Internal Medicine Documentation for date of: 03/06/25 Subjective Subjective Interval history: Patient was evaluated bedside without electrician helper from facility present. Patient was flushed, breathing heavy wihtout use of accessory muscles on 2-3L O2 nasal cannula. She is breathing fine on 2-3L nasal cannula, HR in 140s baseline is 120s. States. Patient did verbalize being ready to go home. Will hold off on discharge until patient no longer needs breathing treatment. Exam Vital Signs Temp Pulse Resp BP Pulse Ox O2 Del Method O2 Flow Rate 97.6 F 138 H 18 135/88 H 99 Nasal Cannula 2 03/06/25 16:00 03/06/25 16:30 03/06/25 16:00 03/06/25 16:30 03/06/25 16:00 03/06/25 16:00 03/06/25 12:15 Narrative Exam GEN: FLushed. Spastic, alert, responds to yes or no questions and mumbles some words. Spastic extremities HEENT: NC/AC, PERRLA, oral mucosa moist CVS: RRR, S1-S2 present, no murmurs appreciated RESP: Diffuse wheezing left side, no use of accessory muscles. 3 L O2 and tolerated well with oxygen saturation of 95% GI: PEG tube in place, no discharge, soft,non distended, non tender, NBS MSK: Spastic extremities SKIN: warm and dry GEAR CUTTER: Patient has history of cerebral palsy, spastic extremities, unable to assess cranial nerves or sensation Objective Labs 03/07/25 05:05 03/07/25 05:05 Labs: Laboratory Results - last 24 hr 03/06/25 03/06/25 05:30 09:15 WBC 10.4 RBC 4.86 Hgb 14.6 Hct 43.8 MCV 90 MCH 30.0 MCHC 33.3 RDW Std Deviation 43.8 Plt Count 214 D Neut % (Auto) 57 Lymph % (Auto) 24 [place] % (Auto) 6 Eos % (Auto) 0 Baso % (Auto) 0 Neut # (Auto) 6.0 Lymph # (Auto) 2.5 [place] # (Auto) 0.7 Eos # (Auto) 0.0 Baso # (Auto) 0.0 Immature Gran # (Auto) 1.25 H Absolute Nucleated RBC 0.00 Immature Gran % 12 H Nucleated RBC % 0 Sodium 142 Potassium 3.4 Chloride 104 Carbon Dioxide 25.6 Anion Gap 12 BUN 11 Creatinine 0.4 L Estim Creat Clear Calc 158.6 eGFR > 60 BUN/Creatinine Ratio 28 H Glucose 110 H Calculated Osmolality 283 Lactic Acid 1.1 Calcium 8.8 Corrected Calcium 9.0 Phosphorus 4.1 Magnesium 1.8 Total Bilirubin 0.4 AST 18 ALT 26 Alkaline Phosphatase 61 Total Protein 6.4 Albumin 3.8 Globulin 2.6 Albumin/Globulin Ratio 1.5 ABG Interpretation ABG results: 03/01/25 03/03/25 16:48 19:15 VBG pH 7.36 7.50 VBG pCO2 42 32 L D VBG pO2 54 62 H VBG Base Excess -2 2 Quality Measures Quality Measures sepsis Current suspected stage: sepsis Possible source: genitourinary Blood cultures ordered: completed in ED Antibiotic ordered: Yes Assessment & Plan Assessment Current Active Medications: Generic Name Dose Route Start Last Admin Trade Name Freq PRN Reason Stop Dose Admin Acetylcysteine 3 ml 03/03/25 19:00 03/06/25 06:13 Acetylcysteine Rt Melanie 10% 4 Ml Nebu INH 04/02/25 18:59 3 ml Q6HRRT NOMAN Administration Ascorbic Acid 1,000 mg 03/02/25 09:00 03/06/25 08:21 Ascorbic Acid 250 Mg Tablet GT 04/01/25 08:59 1,000 mg BID NOMAN Administration Azithromycin 250 mg 03/06/25 09:00 03/06/25 08:40 Azithromycin 250 Mg Tablet PO 03/09/25 08:59 250 mg QDAY NOMAN Administration Balsam Kay/[place] Oil 0 gm 03/02/25 06:00 03/06/25 14:45 Balsam [place] Oil (Venelex) 60 Gm Tube TOP 04/01/25 05:59 1 applicatio TID NOMAN Administration Methenamine 0 ea 03/02/25 08:30 03/06/25 17:50 Hippurate 1 Gm GT 04/01/25 08:29 1 tablet Tablet BIDWM NOMAN Administration Guaifenesin 100 mg 03/03/25 11:59 03/04/25 05:47 Guaifenesin Syrup 200 Mg/10 Ml Udc PO 04/02/25 11:58 100 mg QID PRN Administration COUGH Protocol Acetaminophen 1,000 mg in 100 mls @ 250 mls/hr 03/02/25 01:23 03/02/25 10:05 Ofirmev Inj IV Infused Q6HR PRN Infusion Pain 1-3 or Fever>100.1 Ceftriaxone Sodium/Dextrose 1 gm in 50 mls @ 100 mls/hr 03/05/25 14:54 03/06/25 08:44 Rocephin/D5w 1gm Iv Premix IV 03/12/25 14:53 100 mls/hr QDAY NOMAN Administration Ipratropium Lignum 0.5 mg 03/04/25 19:00 03/06/25 12:12 Ipratropium Rt 0.5 Mg/ 2.5 Ml Nebu INH 04/03/25 18:59 0.5 mg Q6HRRT NOMAN Administration Lansoprazole 30 mg 03/02/25 09:00 03/06/25 08:24 Lansoprazole 30 Mg Tab.Rap. GT 04/01/25 08:59 30 mg BID NOMAN Administration Levalbuterol HCl 1.25 mg 03/04/25 15:42 Levalbuterol Rt 1.25 Mg/0.5 Ml Nebu INH 04/03/25 15:41 Q6HRRT PRN WHEEZING Levetiracetam 500 mg 03/02/25 09:00 03/06/25 08:39 Levetiracetam Liqd 500 Mg/5 Ml Udc GT 04/01/25 08:59 500 mg BID NOMAN Administration Lorazepam 2 mg 03/03/25 18:44 03/06/25 16:24 Lorazepam 0.5 Mg Tablet PO 03/08/25 18:43 2 mg Q6H PRN Administration agitation Melatonin 6 mg 03/02/25 21:00 03/05/25 20:34 Melatonin 3 Mg Tablet GT 04/01/25 20:59 6 mg HS NOMAN Administration Protocol Metoprolol Tartrate 25 mg 03/02/25 09:00 03/06/25 08:21 Metoprolol Tartrate 25 Mg Tablet GT 04/01/25 08:59 25 mg QDAY NOMAN Administration Multivitamins/Minerals 15 ml 03/02/25 09:00 03/06/25 08:40 Multivitamin 15 Ml Udc GT 04/01/25 08:59 15 ml QDAY NOMAN Administration Olanzapine 20 mg 03/02/25 21:00 03/05/25 20:34 Olanzapine 5 Mg Tablet GT 04/01/25 20:59 20 mg HS NOMAN Administration Ondansetron HCl 4 mg 03/01/25 22:48 Ondansetron Inj 2 Mg/Ml Inj 2 Ml IVP 03/31/25 22:47 Q6H PRN NAUSEA OR VOMITING Protocol Polyethylene Glycol 17 gm 03/06/25 11:34 Polyethylene Glycol 17 Gm Packet GT 04/01/25 08:59 QOD PRN constipation Protocol Sennosides 1 tab 03/01/25 23:45 Senna Tablet GT 03/31/25 22:47 QDAY PRN constipation Protocol Sodium Chloride 3 ml 03/04/25 15:42 Sodium Chloride Rt Melanie 0.9% 3 Ml Nebu INH 04/03/25 15:41 PRN PRN SOLN Trazodone HCl 50 mg 03/01/25 23:45 03/05/25 21:26 Trazodone Hcl 50 Mg Tablet GT 03/31/25 22:56 50 mg HS PRN Administration Sleep Venlafaxine HCl 75 mg 03/02/25 09:00 03/06/25 08:23 Venlafaxine 37.5 Mg Tablet GT 04/01/25 08:59 75 mg QAM NOMAN Administration Venlafaxine HCl 150 mg 03/02/25 21:00 03/05/25 20:34 Venlafaxine 37.5 Mg Tablet GT 04/01/25 20:59 150 mg HS NOMAN Administration Vitamin D 5,000 iu 03/02/25 09:00 03/06/25 08:22 Cholecalciferol (Vitamin D3) 1,000 Iu Tablet GT 04/01/25 08:59 5,000 iu QDAY NOMAN Administration Zinc Sulfate 220 mg 03/02/25 09:00 03/06/25 08:24 Zinc Sulfate 220 Mg Capsule GT 04/01/25 08:59 220 mg QDAY NOMAN Administration Plan Assessment Tamera Hansen is a 29-year-old female with a medical history significant for developmental delay (moderate intellectual disability), cerebral palsy, seizures, spastic quadriplegia, prior aspiration pneumonia, dislocated right hip, exotropia, s/p gastrotomy tube placement, and recurrent UTIs who presented to the Emergency Department via EMS from her correction ([facility]) for evaluation of shortness of breath and altered mental status. Patient was admitted for the work-up and management of sepsis r/o 2/2 UTI. Urine culture came back with resistance to levo, stopped levo and began azithromycin for dual UTI and pneumonia coverage. Plan to discharge once patient no longer needs breathing treatment. #Complicated UTI ? likely 2/2 P. mirabilis #Kidney stones ? likely 2/2 P. mirabilis #Sepsis SIRS criteria: Pt met 2 SIRS criteria at presentation with HR 151 >90; WBC 12.3 >12; UA in the ED was positive for signs of UTI: U WBC 306, leukocyte esterase, RBC 202, U blood 3+, 2+ bacteria. Of note, patient has had similar presentations to this hospital in the past. Of note, UCx grew Proteus mirabilis on latest three hospital presentations, in January, August 2024 and June 2024. The increased alkalinity of the current admission's UA is also consistent with a UTI caused by Proteus mirabilis. CTAP: Numerous bilateral calcifications including 20 mm calculus in the right renal pelvis on the right and staghorn calculus occupying lower pole calyces left, kidney and left renal pelvis, the pelvic portion measuring 18 mm UCx positive for gram negative bacteria (03/02), BCx was negative 48 hours, urology Dr. Hendrickson recommended no surgical intervention at this time. Diagnostic Inquiry -Follow up on BCx, UCx; preliminary urine culture: GNR, resistance to levo; Prelim blood culture shows no growth after 48 hours -Follow up on MRSA nasal screen --> MRSA screen negative for MRSA -FUP with Mamta Aguilar if ureters fully clear Treatment Plan -pending urine culture, Stop levo due to resistance, start azithromycin for UTI and Pneumonia coverage -Restarted home medication: GT methenamine hippurate 1 gm BID -IV Tylenol 1000 mg in 100 mL q6HR prn for fever -consulted Infectious Disease, -Continue to monitor CBC, CMP #Atypical versus Gram negative phill Pneumonia #Prior history of aspiration pneumonia #Cerebral palsy Patient is exhibiting high-grade fever, shortness of breath, tachypnea, altered mental status, and diffuse crackles upon lung auscultation CXR suspicious for early pneuomnia of the left base Septic criteria described above Diagnostic Inquiry -Follow up on BCx: same as above -Follow up on MRSA nasal screen: Negative -CXR 03/06: Pneumonia left lung base Treatment Plan -levofloxacin 500mg qd -Inhaled Levalbuterol 1.25 mg q6HRRT, ipratropium 0.5 mg inhalation every 6 hours NONPROFIT MANAGER -Aspiration precautions -Flu and pneumonia vaccine screen ?Resume tube feeds -Continue Chest PT and breathing treatments -Dry out with lasix 40mg 1x, (03/06) #Chronic encephalopathy #Agitation #Anxiety #Developmental delay (moderate intellectual disability) Per electrician helper, patient does not seem to be at cognitive baseline since onset of fever. As of 03/05 patient is more talkative and close to being at baseline per electrician helper CT head: Negative for acute hemorrhage, mass effect or midline shift Patient reportedly has a tendency to become agitated in hospital settings Diagnostic Inquiry -No current recommendation Treatment Plan -Restarted home medications: GT Zyprexa 20 mg HS for agitation/delirium -Restarted home medication: GT Effexor 75 mg qAM and 150 mg qHS, GT trazodone 50 mg HS prn for anxiety #Chronic medical problems #Seizures #Spastic quadriplegia #GERD #Gastrotomy tube Diagnostic Inquiry -No current recommendation Treatment Plan -Restarted home medications: GT Keppra 500 mg BID (seizures), GT Prevacid 30 mg BID (GERD) -Dietitian referral Hospital Management: Disposition: undergoing work-up and management of sepsis 2/2 complicated UTI Diet: NPO, tube feeds GI Prophylaxis: Prevacid Bowel Prophylaxis: Senna DVT Prophylaxis: SCDs CODE STATUS: Full Code - Patient's plan and care discussed with my attending, Dr. Hopkins and supervising resident Valerie Cobian MD Note written by Mic Cooley MD PGY-1 Attending Provider Attestation/Addendum I have discussed and was present for the essential components of the history, physical examination, diagnosis, and treatment plan with the resident. I agree with the patient's care as documented by the resident and amended herein by me. Justin Hopkins DO. Although this document has been carefully reviewed, there may still be some phonetic and other typographical errors. These errors are purely grammatical due to imperfections in the software program and should not be construed in any way to compromise the substance of the patient's medical care during this visit.
[2025-03-06] MEDS: MELATONIN 3 MG TABLET 6 MG GT (20:58)
[2025-03-06] MEDS: VENLAFAXINE 37.5 MG TABLET 150 MG GT (20:58)
[2025-03-07] VITALS (14 sets, daily range): BP systolic 96–127; BP diastolic 63–88; PULSE 103–128; RESP 18–24; TEMP 36–36.6; O2SAT 93–99
[2025-03-07] MEDS: IPRATROPIUM RT 0.5 MG/ 2.5 ML NEBU INH ×4 (01:17→18:44)
[2025-03-07] MEDS: BALSAM PERU/CASTOR OIL (Venelex) 60 GM TUBE TOP ×3 (05:42→21:04)
[2025-03-07 06:04] LABS: Basophils # (Auto) 0.0 Thou/mm3 (0.0-0.2); Basophils % (Auto) 0 % (0-2.5); Eosinophils # (Auto) 0.0 Thou/mm3 (0.0-0.5); Eosinophils % (Auto) 0 % (0-10); Hematocrit 45.9 % (36.0-46.0); Hemoglobin 15.1 g/dL (12.0-16.0); Immature Granulocytes Auto 2.15 Thou/mm3 (0.00-0.00); Lymphocytes # (Auto) 3.7 Thou/mm3 (1.0-4.8); Lymphocytes % (Auto) 29 % (10-50); Mean Corpuscular HGB Conc 32.9 g/dl (31.0-37.0); Mean Corpuscular Hemoglobin 30.2 pg (25.0-35.0); Mean Corpuscular Volume 92 fL (80-100); Monocytes # (Auto) 0.7 Thou/mm3 (0.0-0.8); Monocytes % (Auto) 5 % (0-12); Neutrophils # (Auto) 6.4 Thou/mm3 (1.8-7.7); Neutrophils % (Auto) 49 % (37-80); Nucleated Red Blood Cell # 0.00 Thou/mm3 (0.00-0.00); Nucleated Red Blood Cell % 0 /100 WBC (0); Platelet Count 238 Thou/mm3 (140-440); RDW Standard Deviation 45.1 fL (36.4-46.3); Red Blood Count 5.00 Miln/mm3 (4.00-5.20); White Blood Count 12.9 Thou/mm3 (3.6-11.0)
[2025-03-07 06:23] LABS: Alanine Aminotransferase 34 U/L (10-49); Albumin, Serum 4.0 gm/dL (3.5-5.0); Albumin/Globulin Ratio 1.4 (1.2-2.2); Alkaline Phosphatase 61 U/L (46-116); Anion Gap 12 (7-16); Aspartate Amino Transferase 29 U/L (0-34); BUN/Creatinine Ratio 20 Ratio (12-20); Bilirubin,Total 0.3 mg/dL (0.3-1.2); Blood Urea Nitrogen 8 mg/dL (9-23); Calcium 9.3 mg/dL (8.3-10.6); Calcium (Corrected) 9.3 mg/dL (8.5-10.1); Carbon Dioxide 23.4 mMol/L (20.0-31.0); Chloride 104 mMol/L (98-107); Creatinine (Component) 0.4 mg/dL (0.6-1.3); Estimated Creatinine Clearance 158.6 mL/min (>60); Globulin 2.9 gm/dL (2.3-3.5); Glucose 93 mg/dL (74-106); Osmolality,Calculated 275 (275-295); Potassium 4.4 mMol/L (3.4-5.1); Sodium 139 mMol/L (136-145); Total Protein 6.9 gm/dL (5.7-8.2); eGFR > 60 See Note
--- NOTE | 2025-03-07 07:41 | UCCONSULT_ITS ---
RE: MIRELA FAROOQ : 1995 DATE OF CONSULTATION: 03/03/2025 CHIEF COMPLAINT: 1. Bilateral nonobstructive renal calculi. 2. Left kidney scarred with multiple stones in the left kidney. HISTORY OF PRESENT ILLNESS: This is a 29-year-old female. She has a significant medical history of, 1. Developmental delay (moderate intellectual disability). 2. She has cerebral palsy, seizure, spastic quadriplegia, prior aspiration pneumonia, dislocated right hip, exotropia status post gastrectomy tube placement and she also has a history of recurrent urinary tract infection. The patient was brought to the emergency room and she was not responding appropriately to the question according to the care provider. She has high fever in the emergency room, which was 102 Fahrenheit. She was hypotensive with blood pressure of and has O2 saturation of 90% at room . The care provider reported that the patient recently has no urinary tract infection. In the emergency room, she has a blood pressure of 93/63, heart rate of 123, respirations 31, and temperature is 103.2. CBC had shown leukocytosis with neutrophil prominence. She has various imaging studies done in the emergency room. X-ray chest was suspicious for early pneumonia in the left base. The CT head was unremarkable. The CT of the abdomen revealed severe scarring of left kidney with multiple stones. REVIEW OF SYSTEMS: Normal except as documented. PHYSICAL EXAMINATION: General: The patient is not in any acute distress. She is lying comfortably in the bed. She does not appear to be anemic. VITAL SIGNS: Stable. VARIOUS LABS: Her BUN is 20. Creatinine is 0.7. Urine cultures are not done yet. IMPRESSION: From urology point of view, she has bilateral renal calculi, very scarred kidney on the left side. The stones are nonobstructive at this time. RECOMMENDATIONS: Urine for culture sensitivity, treat her according to the culture sensitivity with appropriate antibiotics. At this moment, the patient is not a candidate for any surgical procedure for kidney stones. All above issues were explained to care provider and I answered her questions and care provider also thought that she is not a candidate for surgical procedure not at this time. DT: 15:28:29 TT: 01:41:00 Ref: - TID: [id number]
[2025-03-07] MEDS: METHENAMINE HIPPURATE 1 GM TABLET GT ×2 (09:00→17:25)
[2025-03-07] MEDS: cefTRIAXone/D5w 1gm IV premix 1 GM/50 ML BAG IV (09:04)
[2025-03-07] MEDS: ZINC SULFATE 220 MG CAPSULE GT (09:07)
[2025-03-07] MEDS: ASCORBIC ACID 250 MG TABLET 1000 MG GT ×2 (09:07→20:49)
[2025-03-07] MEDS: MULTIVITAMIN 15 ML UDC GT (09:07)
[2025-03-07] MEDS: AZITHROMYCIN 250 MG TABLET PO (09:07)
[2025-03-07] MEDS: VENLAFAXINE 37.5 MG TABLET 75 MG GT (09:07)
[2025-03-07] MEDS: levETIRAcetam LIQD 500 MG/5 ML UDC GT (09:07)
[2025-03-07] MEDS: METOPROLOL TARTRATE 25 MG TABLET GT ×2 (09:08→20:48)
[2025-03-07] MEDS: CHOLECALCIFEROL (Vitamin D3) 1,000 IU TABLET 5000 IU GT (09:08)
[2025-03-07] MEDS: LANSOPRAZOLE 30 MG TAB.RAP.DR GT ×2 (09:08→20:47)
[2025-03-07] MEDS: FUROSEMIDE INJ 10 MG/ML 4ML VIAL 40 MG IVP (09:20)
[2025-03-07] MEDS: HYOSCYAMINE SULF 0.125 MG TAB.SUBL 0.25 MG GT (10:51)
--- NOTE | 2025-03-07 11:00 | PC.SS ---
Addendum entered by Bernie Malik 03/07/25 15:52: Update: MALCOLM spoke to physician team and patient's d/c will be held due to being medically unstable. Addendum entered by Bernie Malik 03/07/25 12:00: MALCOLM submitted all supporting docs to [facility] for review. Patient may dc back to [facility] today. Original Note: Follow up note: Patient needs new home 02 to return to [facility]. MALCOLM updated floor nurse who will document patient's 02 sats. Latricia will review and deliver
--- NOTE | 2025-03-07 11:24 | PC.NURSE ---
Pt O2 87% on RA; pt placed on 2L NC and O2 is now 92%.
--- NOTE | 2025-03-07 13:47 | XR_ITS ---
Examination: Urinary bladder sonography complete TECHNIQUE: Grayscale sonographic images urinary bladder Date and time: March 07, 2025, 1457 hours INDICATIONS: Urinary tract infections beginning one week ago FINDINGS: No bladder mass or bladder calculi Bladder prevoid volume 117.5 cc, patient unable to void IMPRESSION: No bladder mass or bladder calculi
--- NOTE | 2025-03-07 15:06 | ESPR_ITS ---
<Statement entered by Valerie Cobian MD - 03/08/25 15:29> I have reviewed the note and agree with the resident's assessment & plan with exceptions as below. I have personally reviewed labs, imaging, home meds/prior records, examined the patient, formulated and discussed management plan with the IM team. Patient examined at bedside today. Patient continues to be tachycardic, will administer 1 mg of IV morphine to see if tachycardia is related to pain. Will also increase metoprolol titrate to 25 mg twice daily as it was noted that patient only get metoprolol tartrate 12.5 mg once a day and she seems to get tachycardic later in the day. We also adjusted her home medicines for her antiepileptics in which we added Lamictal and increase her Keppra to 1000 mg twice daily. Will continue with antibiotics, attempt to wean down on oxygen. Will order bladder ultrasound recommended by interventional radiology. Repeat hematology and chemistry in AM. Anticipate discharge within the next 24 to 48 hours. Valerie Cobian, PGY-2 Internal Medicine Documentation for date of: 03/07/25 Subjective Subjective Interval history: No acute events overnight. Patient seen and examined at bedside. Vitals and labs reviewed. Patient is breathing fine on 2L nasal cannula this morning, HR in 110s baseline is 120s. Patient occasionally groans, out of pain possibly, may be contributing to elevated heart rate. Exam Vital Signs Temp Pulse Resp BP Pulse Ox O2 Del Method O2 Flow Rate 97.0 F 117 H 22 H 125/71 99 Nasal Cannula 2 03/07/25 12:00 03/07/25 12:03/07/25 12:03/07/25 12:03/07/25 12:05 03/07/25 12:03/07/25 12:05 Narrative Exam GEN: Flushed. Spastic, alert, responds to yes or no questions and mumbles some words. Spastic extremities HEENT: NC/AC, PERRLA, oral mucosa moist CVS: RRR, S1-S2 present, no murmurs appreciated RESP: Mild L lower wheeze, no use of accessory muscles. 2 L O2 and tolerated well with oxygen saturation of 96% GI: PEG tube in place, no discharge, soft,non distended, non tender, NBS MSK: Spastic extremities SKIN: warm and dry HEALTH INSURANCE SPECIALIST: Patient has history of cerebral palsy, spastic extremities, unable to assess cranial nerves or sensation Objective Labs 03/08/25 05:06 03/08/25 05:06 Labs: Laboratory Results - last 24 hr 03/07/25 05:05 WBC 12.9 H RBC 5.00 Hgb 15.1 Hct 45.9 MCV 92 MCH 30.2 MCHC 32.9 RDW Std Deviation 45.1 Plt Count 238 Neut % (Auto) 49 Lymph % (Auto) 29 Robeson % (Auto) 5 Eos % (Auto) 0 Baso % (Auto) 0 Neut # (Auto) 6.4 Lymph # (Auto) 3.7 Robeson # (Auto) 0.7 Eos # (Auto) 0.0 Baso # (Auto) 0.0 Immature Gran # (Auto) 2.15 H Absolute Nucleated RBC 0.00 Immature Gran % 17 H Nucleated RBC % 0 Sodium 139 Potassium 4.4 D Chloride 104 Carbon Dioxide 23.4 Anion Gap 12 BUN 8 L Creatinine 0.4 L Estim Creat Clear Calc 158.6 eGFR > 60 BUN/Creatinine Ratio 20 Glucose 93 Calculated Osmolality 275 Calcium 9.3 Corrected Calcium 9.3 Total Bilirubin 0.3 AST 29 ALT 34 Alkaline Phosphatase 61 Total Protein 6.9 Albumin 4.0 Globulin 2.9 Albumin/Globulin Ratio 1.4 ABG Interpretation ABG results: 03/01/25 03/03/25 16:48 19:15 VBG pH 7.36 7.50 VBG pCO2 42 32 L D VBG pO2 54 62 H VBG Base Excess -2 2 Quality Measures Quality Measures sepsis Current suspected stage: sepsis Possible source: genitourinary Blood cultures ordered: completed in ED Antibiotic ordered: Yes Assessment & Plan Assessment Current Active Medications: Generic Name Dose Route Start Last Admin Trade Name Freq PRN Reason Stop Dose Admin Acetylcysteine 3 ml 03/03/25 19:00 03/06/25 06:13 Acetylcysteine Rt Melanie 10% 4 Ml Nebu INH 04/02/25 18:59 3 ml Q6HRRT NOMAN Administration Ascorbic Acid 1,000 mg 03/02/25 09:00 03/07/25 09:07 Ascorbic Acid 250 Mg Tablet GT 04/01/25 08:59 1,000 mg BID NOMAN Administration Azithromycin 250 mg 03/06/25 09:00 03/07/25 09:07 Azithromycin 250 Mg Tablet PO 03/09/25 08:59 250 mg QDAY NOMAN Administration Balsam Kay/[place] Oil 0 gm 03/02/25 06:00 03/07/25 13:12 Balsam Kay/[place] Oil (Venelex) 60 Gm Tube TOP 04/01/25 05:59 1 applicatio TID NOMAN Administration Methenamine 0 ea 03/02/25 08:30 03/07/25 09:00 Hippurate 1 Gm GT 04/01/25 08:29 1 tablet Tablet BIDWM NOMAN Administration Guaifenesin 100 mg 03/03/25 11:59 03/04/25 05:47 Guaifenesin Syrup 200 Mg/10 Ml Udc PO 04/02/25 11:58 100 mg QID PRN Administration COUGH Protocol Acetaminophen 1,000 mg in 100 mls @ 250 mls/hr 03/02/25 01:23 03/02/25 10:05 Ofirmev Inj IV Infused Q6HR PRN Infusion Pain 1-3 or Fever>100.1 Ceftriaxone Sodium/Dextrose 1 gm in 50 mls @ 100 mls/hr 03/05/25 14:54 03/07/25 09:04 Rocephin/D5w 1gm Iv Premix IV 03/12/25 14:53 100 mls/hr QDAY NOMAN Administration Ipratropium [place] 0.5 mg 03/04/25 19:00 03/07/25 12:03 Ipratropium Rt 0.5 Mg/ 2.5 Ml Nebu INH 04/03/25 18:59 0.5 mg Q6HRRT NOMAN Administration Lansoprazole 30 mg 03/02/25 09:00 03/07/25 09:08 Lansoprazole 30 Mg Tab.Rap. GT 04/01/25 08:59 30 mg BID NOMAN Administration Levalbuterol HCl 1.25 mg 03/04/25 15:42 Levalbuterol Rt 1.25 Mg/0.5 Ml Nebu INH 04/03/25 15:41 Q6HRRT PRN WHEEZING Levetiracetam 500 mg 03/02/25 09:00 03/07/25 09:07 Levetiracetam Liqd 500 Mg/5 Ml Udc GT 04/01/25 08:59 500 mg BID NOMAN Administration Lorazepam 2 mg 03/03/25 18:44 03/06/25 16:24 Lorazepam 0.5 Mg Tablet PO 03/08/25 18:43 2 mg Q6H PRN Administration agitation Melatonin 6 mg 03/02/25 21:00 03/06/25 20:58 Melatonin 3 Mg Tablet GT 04/01/25 20:59 6 mg HS NOMAN Administration Protocol Metoprolol Tartrate 25 mg 03/07/25 21:00 Metoprolol Tartrate 25 Mg Tablet GT 04/06/25 20:59 BID NOMAN Multivitamins/Minerals 15 ml 03/02/25 09:00 03/07/25 09:07 Multivitamin 15 Ml Udc GT 04/01/25 08:59 15 ml QDAY NOMAN Administration Olanzapine 20 mg 03/02/25 21:00 03/06/25 20:58 Olanzapine 5 Mg Tablet GT 04/01/25 20:59 20 mg HS NOMAN Administration Ondansetron HCl 4 mg 03/01/25 22:48 Ondansetron Inj 2 Mg/Ml Inj 2 Ml IVP 03/31/25 22:47 Q6H PRN NAUSEA OR VOMITING Protocol Polyethylene Glycol 17 gm 03/06/25 11:34 Polyethylene Glycol 17 Gm Packet GT 04/01/25 08:59 QOD PRN constipation Protocol Sennosides 1 tab 03/01/25 23:45 Senna Tablet GT 03/31/25 22:47 QDAY PRN constipation Protocol Sodium Chloride 3 ml 03/04/25 15:42 Sodium Chloride Rt Melanie 0.9% 3 Ml Nebu INH 04/03/25 15:41 PRN PRN SOLN Trazodone HCl 50 mg 03/01/25 23:45 03/05/25 21:26 Trazodone Hcl 50 Mg Tablet GT 03/31/25 22:56 50 mg HS PRN Administration Sleep Venlafaxine HCl 75 mg 03/02/25 09:00 03/07/25 09:07 Venlafaxine 37.5 Mg Tablet GT 04/01/25 08:59 75 mg QAM NOMAN Administration Venlafaxine HCl 150 mg 03/02/25 21:00 03/06/25 20:58 Venlafaxine 37.5 Mg Tablet GT 04/01/25 20:59 150 mg HS NOMAN Administration Vitamin D 5,000 iu 03/02/25 09:00 03/07/25 09:08 Cholecalciferol (Vitamin D3) 1,000 Iu Tablet GT 04/01/25 08:59 5,000 iu QDAY NOMAN Administration Zinc Sulfate 220 mg 03/02/25 09:00 03/07/25 09:07 Zinc Sulfate 220 Mg Capsule GT 04/01/25 08:59 220 mg QDAY NOMAN Administration Plan Assessment Tamera Hansen is a 29-year-old female with a medical history significant for developmental delay (moderate intellectual disability), cerebral palsy, seizures, spastic quadriplegia, prior aspiration pneumonia, dislocated right hip, exotropia, s/p gastrotomy tube placement, and recurrent UTIs who presented to the Emergency Department via EMS from her prison ([facility]) for evaluation of shortness of breath and altered mental status. Patient was admitted for the work-up and management of sepsis r/o 2/2 UTI. Urine culture came back with resistance to levo, stopped levo and began azithromycin for dual UTI and pneumonia coverage. Plan to discharge once patient no longer needs breathing treatment. #Complicated UTI ? likely 2/2 P. mirabilis #Kidney stones ? likely 2/2 P. mirabilis #Sepsis SIRS criteria: Pt met 2 SIRS criteria at presentation with HR 151 >90; WBC 12.3 >12; UA in the ED was positive for signs of UTI: U WBC 306, leukocyte esterase, RBC 202, U blood 3+, 2+ bacteria. Of note, patient has had similar presentations to this hospital in the past. Of note, UCx grew Proteus mirabilis on latest three hospital presentations, in January, August 2024 and June 2024. The increased alkalinity of the current admission's UA is also consistent with a UTI caused by Proteus mirabilis. CTAP: Numerous bilateral calcifications including 20 mm calculus in the right renal pelvis on the right and staghorn calculus occupying lower pole calyces left, kidney and left renal pelvis, the pelvic portion measuring 18 mm UCx positive for gram negative bacteria (03/02), BCx was negative 48 hours, urology Dr. Hendrickson recommended no surgical intervention at this time. Diagnostic Inquiry -Follow up on BCx, UCx; preliminary urine culture: GNR, resistance to levo; Prelim blood culture shows no growth after 48 hours -Follow up on MRSA nasal screen --> MRSA screen negative for MRSA -Ordered US Bladder w/ goldman clamped in -FUP with Mamta Aguilar after bladder scan Treatment Plan -Planning to give cefuroxime PO on discharge -pending urine culture, Stop levo due to resistance, start azithromycin for UTI and Pneumonia coverage -azithromycin 250 mg po q day (03/06-03/09) -Restarted home medication: GT methenamine hippurate 1 gm BID -IV Tylenol 1000 mg in 100 mL q6HR prn for fever -consulted Infectious Disease, -Continue to monitor CBC, CMP #Atypical versus Gram negative phill Pneumonia #Prior history of aspiration pneumonia #Cerebral palsy Patient is exhibiting high-grade fever, shortness of breath, tachypnea, altered mental status, and diffuse crackles upon lung auscultation CXR suspicious for early pneuomnia of the left base Septic criteria described above Diagnostic Inquiry -Follow up on BCx: same as above -Follow up on MRSA nasal screen: Negative -CXR 03/06: Pneumonia left lung base Treatment Plan -azithromycin 250 mg po q day (03/06-03/09) -Inhaled Levalbuterol 1.25 mg q6HRRT, ipratropium 0.5 mg inhalation every 6 hours UROLOGY PHYSICIAN -Aspiration precautions -Flu and pneumonia vaccine screen ?Resume tube feeds -Continue Chest PT and breathing treatments -(03/06)Dried out with lasix 40mg 1x #Chronic encephalopathy #Agitation #Anxiety #Developmental delay (moderate intellectual disability) Per hardboard supervisor, patient does not seem to be at cognitive baseline since onset of fever. As of 03/05 patient is more talkative and close to being at baseline per hardboard supervisor CT head: Negative for acute hemorrhage, mass effect or midline shift Patient reportedly has a tendency to become agitated in hospital settings Diagnostic Inquiry -No current recommendation Treatment Plan -Restarted home medications: GT Zyprexa 20 mg HS for agitation/delirium -Restarted home medication: GT Effexor 75 mg qAM and 150 mg qHS, GT trazodone 50 mg HS prn for anxiety #Chronic medical problems #Seizures #Spastic quadriplegia #GERD #Gastrotomy tube Diagnostic Inquiry -No current recommendation Treatment Plan -Restarted home medications: GT Keppra 500 mg BID (seizures), GT Prevacid 30 mg BID (GERD) -Dietitian referral Hospital Management: Disposition: undergoing work-up and management of sepsis 2/2 complicated UTI Diet: NPO, tube feeds GI Prophylaxis: Prevacid 30 mg GT BID Bowel Prophylaxis: Senna DVT Prophylaxis: SCDs CODE STATUS: Full Code Patient's plan and care discussed with my attending, Dr. Hopkins and supervising resident MD Ruddy Parnell MD PGY-1 Attending Provider Attestation/Addendum I have discussed and was present for the essential components of the history, physical examination, diagnosis, and treatment plan with the resident. I agree with the patient's care as documented by the resident and amended herein by me. Justin Hopkins DO. Although this document has been carefully reviewed, there may still be some phonetic and other typographical errors. These errors are purely grammatical due to imperfections in the software program and should not be construed in any way to compromise the substance of the patient's medical care during this visit.
[2025-03-07] MEDS: MORPHINE SULF INJ 10 MG/ML VIAL IVP (15:23)
[2025-03-07] MEDS: lamoTRIgine 25 MG CHEW 500 MG GT (20:46)
[2025-03-07] MEDS: levETIRAcetam LIQD 500 MG/5 ML UDC 1000 MG GT (20:47)
[2025-03-07] MEDS: VENLAFAXINE 37.5 MG TABLET 150 MG GT (20:48)
[2025-03-07] MEDS: MELATONIN 3 MG TABLET 6 MG GT (20:49)
[2025-03-08] VITALS (14 sets, daily range): BP systolic 102–130; BP diastolic 63–86; PULSE 86–122; RESP 15–20; TEMP 36.1–36.4; O2SAT 93–99; BMI 30.8
[2025-03-08] MEDS: IPRATROPIUM RT 0.5 MG/ 2.5 ML NEBU INH ×4 (01:14→19:01)
[2025-03-08] MEDS: BALSAM PERU/CASTOR OIL (Venelex) 60 GM TUBE TOP ×3 (05:15→21:07)
[2025-03-08 06:03] LABS: Basophils # (Auto) 0.0 Thou/mm3 (0.0-0.2); Basophils % (Auto) 0 % (0-2.5); Eosinophils # (Auto) 0.0 Thou/mm3 (0.0-0.5); Eosinophils % (Auto) 0 % (0-10); Hematocrit 47.3 % (36.0-46.0); Hemoglobin 15.7 g/dL (12.0-16.0); Immature Granulocytes Auto 1.85 Thou/mm3 (0.00-0.00); Lymphocytes # (Auto) 3.3 Thou/mm3 (1.0-4.8); Lymphocytes % (Auto) 21 % (10-50); Mean Corpuscular HGB Conc 33.2 g/dl (31.0-37.0); Mean Corpuscular Hemoglobin 30.2 pg (25.0-35.0); Mean Corpuscular Volume 91 fL (80-100); Monocytes # (Auto) 0.8 Thou/mm3 (0.0-0.8); Monocytes % (Auto) 5 % (0-12); Neutrophils # (Auto) 9.8 Thou/mm3 (1.8-7.7); Neutrophils % (Auto) 62 % (37-80); Nucleated Red Blood Cell # 0.00 Thou/mm3 (0.00-0.00); Nucleated Red Blood Cell % 0 /100 WBC (0); Platelet Count 264 Thou/mm3 (140-440); RDW Standard Deviation 45.0 fL (36.4-46.3); Red Blood Count 5.20 Miln/mm3 (4.00-5.20); White Blood Count 15.7 Thou/mm3 (3.6-11.0)
[2025-03-08 06:34] LABS: Alanine Aminotransferase 48 U/L (10-49); Albumin, Serum 4.0 gm/dL (3.5-5.0); Albumin/Globulin Ratio 1.4 (1.2-2.2); Alkaline Phosphatase 62 U/L (46-116); Anion Gap 10 (7-16); Aspartate Amino Transferase 29 U/L (0-34); BUN/Creatinine Ratio 24 Ratio (12-20); Bilirubin,Total 0.3 mg/dL (0.3-1.2); Blood Urea Nitrogen 12 mg/dL (9-23); Calcium 9.2 mg/dL (8.3-10.6); Calcium (Corrected) 9.2 mg/dL (8.5-10.1); Carbon Dioxide 28.4 mMol/L (20.0-31.0); Chloride 102 mMol/L (98-107); Creatinine (Component) 0.5 mg/dL (0.6-1.3); Estimated Creatinine Clearance 127.8 mL/min (>60); Globulin 2.9 gm/dL (2.3-3.5); Glucose 100 mg/dL (74-106); Magnesium 2.2 mg/dL (1.6-2.6); Osmolality,Calculated 279 (275-295); Phosphorous 3.4 mg/dL (2.4-5.1); Potassium 4.3 mMol/L (3.4-5.1); Sodium 140 mMol/L (136-145); Total Protein 6.9 gm/dL (5.7-8.2); Vitamin D 25 Hydroxy Total 61.1 ng/mL (7.3-40.2); eGFR > 60 See Note
[2025-03-08] MEDS: METHENAMINE HIPPURATE 1 GM TABLET GT ×2 (09:00→16:58)
[2025-03-08] MEDS: LANSOPRAZOLE 30 MG TAB.RAP.DR GT ×2 (09:19→20:39)
[2025-03-08] MEDS: AZITHROMYCIN 250 MG TABLET PO (09:19)
[2025-03-08] MEDS: MULTIVITAMIN 15 ML UDC GT (09:19)
[2025-03-08] MEDS: CHOLECALCIFEROL (Vitamin D3) 1,000 IU TABLET 5000 IU GT (09:19)
[2025-03-08] MEDS: TAMSULOSIN HCL 0.4 MG CAPSULE GT (09:19)
[2025-03-08] MEDS: levETIRAcetam LIQD 500 MG/5 ML UDC 1000 MG GT ×2 (09:19→20:35)
[2025-03-08] MEDS: ZINC SULFATE 220 MG CAPSULE GT (09:21)
[2025-03-08] MEDS: VENLAFAXINE 37.5 MG TABLET 75 MG GT (09:21)
[2025-03-08] MEDS: METOPROLOL TARTRATE 25 MG TABLET GT ×2 (09:21→20:39)
[2025-03-08] MEDS: lamoTRIgine 25 MG CHEW 500 MG GT ×2 (09:23→20:36)
[2025-03-08] MEDS: ASCORBIC ACID 250 MG TABLET 1000 MG GT ×2 (09:23→20:39)
[2025-03-08] MEDS: cefTRIAXone/D5w 1gm IV premix 1 GM/50 ML BAG IV (09:24)
[2025-03-08 09:28] LABS: Procalcitonin 0.18 ng/ml (0.0-0.49)
[2025-03-08 11:19] LABS: Collection Type, Urine Clean Catch
[2025-03-08 11:32] LABS: Bacteria,Urine 4+; Bilirubin,Urine Negative (Negative); Blood,Urine 1+ (Negative); Budding Yeast,Urine Present; Color,Urine Yellow (Lt Yel-Yel); Glucose, Urine Negative (Negative); Hyaline Casts,Urine < 1 /hpf (0-1); Ketones,Urine Negative (Negative); Leukocyte Esterase,Urine Positive (Negative); Nitrite,Urine Negative (Negative); PH,Urine 6.5 (5.0-7.0); Protein,Urine Negative (Neg - Trace); RBC,Urine 116 /hpf (0-3); Specific Gravity,Urine 1.015 (1.001-1.035); Squamous Epithelial Cell,Urine 1 /hpf (0-5); Urobilinogen,Urine Negative mg/dL (0.0-1.0); WBC,Urine 53 /hpf (0-5)
[2025-03-08 11:42] LABS: Clarity,Urine Hazy (Clear/Hazy)
[2025-03-08] MEDS: ACETAMINOPHEN IVPB 1,000 MG/100 ML VIAL 250 MG IV (12:00)
--- NOTE | 2025-03-08 16:29 | ESPR_ITS ---
<Statement entered by Valerie Cobian MD - 03/08/25 16:40> I have reviewed the note and agree with the resident's assessment & plan with exceptions as below. I have personally reviewed labs, imaging, home meds/prior records, examined the patient, formulated and discussed management plan with the IM team. Patient examined at bedside today. No acute overnight events. Patient continued to have some oxygen. Patient did have uptrend in leukocytosis, however patient's heart rate is coming down. Patient could have had underlying pain as it improved with some pain medicine. Patient will need second opinion from neurologist for bilateral renal calculi. Anticipate discharge in the next 2448 hrs. as long patient does not increase in respiratory status. Repeat hematology and chemistry in AM. Continue with cefotaxime in cefuroxime oral abx at this time. Valerie Cobian, PGY-2 Internal Medicine Documentation for date of: 03/08/25 Subjective Subjective Interval history: No acute events overnight. Patient seen and examined at bedside. Vitals and labs reviewed. Patient is breathing fine on 2L nasal cannula this morning with oxygen saturation of 98%, HR 100 toda. Patient resting in bed today, appears more relaxed. Exam Vital Signs Temp Pulse Resp BP Pulse Ox O2 Del Method O2 Flow Rate 97.2 F 86 16 130/86 H 98 Nasal Cannula 2 03/08/25 12:00 03/08/25 13:40 03/08/25 13:40 03/08/25 12:00 03/08/25 13:40 03/08/25 12:00 03/08/25 13:40 Narrative Exam GEN: Flushed. Spastic, alert, responds to yes or no questions and mumbles some words. Spastic extremities HEENT: NC/AC, PERRLA, oral mucosa moist CVS: RRR, S1-S2 present, no murmurs appreciated RESP: Mild L lower wheeze, no use of accessory muscles. 2 L O2 and tolerated well with oxygen saturation of 98% GI: PEG tube in place, no discharge, soft,non distended, non tender, NBS MSK: Spastic extremities SKIN: warm and dry RN OPERATING ROOM: Patient has history of cerebral palsy, spastic extremities, unable to assess cranial nerves or sensation Objective Labs 03/09/25 05:31 03/09/25 05:31 Labs: Laboratory Results - last 24 hr 03/08/25 03/08/25 05:06 11:00 WBC 15.7 H RBC 5.20 Hgb 15.7 Hct 47.3 H MCV 91 MCH 30.2 MCHC 33.2 RDW Std Deviation 45.0 Plt Count 264 Neut % (Auto) 62 Lymph % (Auto) 21 [place] % (Auto) 5 Eos % (Auto) 0 Baso % (Auto) 0 Neut # (Auto) 9.8 H Lymph # (Auto) 3.3 [place] # (Auto) 0.8 Eos # (Auto) 0.0 Baso # (Auto) 0.0 Immature Gran # (Auto) 1.85 H Absolute Nucleated RBC 0.00 Immature Gran % 12 H Nucleated RBC % 0 Sodium 140 Potassium 4.3 Chloride 102 Carbon Dioxide 28.4 Anion Gap 10 BUN 12 Creatinine 0.5 L Estim Creat Clear Calc 127.8 eGFR > 60 BUN/Creatinine Ratio 24 H Glucose 100 Calculated Osmolality 279 Calcium 9.2 Corrected Calcium 9.2 Phosphorus 3.4 Magnesium 2.2 Total Bilirubin 0.3 AST 29 ALT 48 Alkaline Phosphatase 62 Total Protein 6.9 Albumin 4.0 Globulin 2.9 Albumin/Globulin Ratio 1.4 25-OH Vitamin D Total 61.1 H Procalcitonin 0.18 Ur Collection Type Clean Catch Urine Color Yellow Urine Clarity Hazy Urine pH 6.5 Ur Specific [place] 1.015 Urine Protein Negative Urine Glucose (UA) Negative Urine Ketones Negative Urine Blood 1+ A Urine Nitrite Negative Urine Bilirubin Negative Urine Urobilinogen (Auto) Negative Ur Leukocyte Esterase Positive Urine RBC 116 H Urine WBC 53 H Ur Squamous Epith Cells 1 Urine Bacteria 4+ A Hyaline Casts < 1 Urine Yeast (Budding) Present A ABG Interpretation ABG results: 03/01/25 03/03/25 16:48 19:15 VBG pH 7.36 7.50 VBG pCO2 42 32 L D VBG pO2 54 62 H VBG Base Excess -2 2 Quality Measures Quality Measures sepsis Current suspected stage: sepsis Possible source: genitourinary Blood cultures ordered: completed in ED Antibiotic ordered: Yes Assessment & Plan Assessment Current Active Medications: Generic Name Dose Route Start Last Admin Trade Name Freq PRN Reason Stop Dose Admin Acetylcysteine 3 ml 03/03/25 19:00 03/06/25 06:13 Acetylcysteine Rt Melanie 10% 4 Ml Nebu INH 04/02/25 18:59 3 ml Q6HRRT NOMAN Administration Ascorbic Acid 1,000 mg 03/02/25 09:00 03/08/25 09:23 Ascorbic Acid 250 Mg Tablet GT 04/01/25 08:59 1,000 mg BID NOMAN Administration Azithromycin 250 mg 03/06/25 09:00 03/08/25 09:19 Azithromycin 250 Mg Tablet PO 03/09/25 08:59 250 mg QDAY NOMAN Administration Balsam [place] Oil 0 gm 03/02/25 06:00 03/08/25 14:20 Balsam [place] Oil (Venelex) 60 Gm Tube TOP 04/01/25 05:59 1 applicatio TID NOMAN Administration Cefuroxime Axetil 500 mg 03/08/25 21:00 Cefuroxime Axetil 250 Mg Tablet PO 03/15/25 20:59 BID NOMAN Methenamine 0 ea 03/02/25 08:30 03/08/25 09:00 Hippurate 1 Gm GT 04/01/25 08:29 1 tablet Tablet BIDWM NOMAN Administration Guaifenesin 100 mg 03/03/25 11:59 03/04/25 05:47 Guaifenesin Syrup 200 Mg/10 Ml Udc PO 04/02/25 11:58 100 mg QID PRN Administration COUGH Protocol Ipratropium [place] 0.5 mg 03/04/25 19:00 03/08/25 13:40 Ipratropium Rt 0.5 Mg/ 2.5 Ml Nebu INH 04/03/25 18:59 0.5 mg Q6HRRT NOMAN Administration Lamotrigine 500 mg 03/07/25 21:00 03/08/25 09:23 Lamotrigine 25 Mg Chew GT 04/06/25 20:59 500 mg BID NOMAN Administration Lansoprazole 30 mg 03/02/25 09:00 03/08/25 09:19 Lansoprazole 30 Mg Tab.Rap. GT 04/01/25 08:59 30 mg BID NOMAN Administration Levalbuterol HCl 1.25 mg 03/04/25 15:42 Levalbuterol Rt 1.25 Mg/0.5 Ml Nebu INH 04/03/25 15:41 Q6HRRT PRN WHEEZING Levetiracetam 1,000 mg 03/07/25 21:00 03/08/25 09:19 Levetiracetam Liqd 500 Mg/5 Ml Udc GT 04/06/25 20:59 1,000 mg BID NOMAN Administration Lorazepam 2 mg 03/03/25 18:44 03/08/25 11:26 Lorazepam 0.5 Mg Tablet PO 03/08/25 18:43 2 mg Q6H PRN Administration agitation Melatonin 6 mg 03/02/25 21:00 03/07/25 20:49 Melatonin 3 Mg Tablet GT 04/01/25 20:59 6 mg HS NOMAN Administration Protocol Metoprolol Tartrate 25 mg 03/07/25 21:00 03/08/25 09:21 Metoprolol Tartrate 25 Mg Tablet GT 04/06/25 20:59 25 mg BID NOMAN Administration Multivitamins/Minerals 15 ml 03/02/25 09:00 03/08/25 09:19 Multivitamin 15 Ml Udc GT 04/01/25 08:59 15 ml QDAY NOMAN Administration Olanzapine 20 mg 03/02/25 21:00 03/07/25 20:47 Olanzapine 5 Mg Tablet GT 04/01/25 20:59 20 mg HS NOMAN Administration Ondansetron HCl 4 mg 03/01/25 22:48 Ondansetron Inj 2 Mg/Ml Inj 2 Ml IVP 03/31/25 22:47 Q6H PRN NAUSEA OR VOMITING Protocol Polyethylene Glycol 17 gm 03/06/25 11:34 Polyethylene Glycol 17 Gm Packet GT 04/01/25 08:59 QOD PRN constipation Protocol Sennosides 1 tab 03/01/25 23:45 Senna Tablet GT 03/31/25 22:47 QDAY PRN constipation Protocol Sodium Chloride 3 ml 03/04/25 15:42 Sodium Chloride Rt Melanie 0.9% 3 Ml Nebu INH 04/03/25 15:41 PRN PRN SOLN Trazodone HCl 50 mg 03/01/25 23:45 03/05/25 21:26 Trazodone Hcl 50 Mg Tablet GT 03/31/25 22:56 50 mg HS PRN Administration Sleep Venlafaxine HCl 75 mg 03/02/25 09:00 03/08/25 09:21 Venlafaxine 37.5 Mg Tablet GT 04/01/25 08:59 75 mg QAM NOMAN Administration Venlafaxine HCl 150 mg 03/02/25 21:00 03/07/25 20:48 Venlafaxine 37.5 Mg Tablet GT 04/01/25 20:59 150 mg HS NOMAN Administration Vitamin D 5,000 iu 03/02/25 09:00 03/08/25 09:19 Cholecalciferol (Vitamin D3) 1,000 Iu Tablet GT 04/01/25 08:59 5,000 iu QDAY NOMAN Administration Zinc Sulfate 220 mg 03/02/25 09:00 03/08/25 09:21 Zinc Sulfate 220 Mg Capsule GT 04/01/25 08:59 220 mg QDAY NOMAN Administration Plan Tamera Hansen is a 29-year-old female with a medical history significant for developmental delay (moderate intellectual disability), cerebral palsy, seizures, spastic quadriplegia, prior aspiration pneumonia, dislocated right hip, exotropia, s/p gastrotomy tube placement, and recurrent UTIs who presented to the Emergency Department via EMS from her retirement ([facility]) for evaluation of shortness of breath and altered mental status. Patient was admitted for the work-up and management of sepsis r/o 2/2 UTI. Urine culture came back with resistance to levo, stopped levo and began azithromycin for dual UTI and pneumonia coverage. Plan to discharge once patient no longer needs breathing treatment. #Complicated UTI ? likely 2/2 P. mirabilis #Kidney stones ? likely 2/2 P. mirabilis #Sepsis SIRS criteria: Pt met 2 SIRS criteria at presentation with HR 151 >90; WBC 12.3 >12; UA in the ED was positive for signs of UTI: U WBC 306, leukocyte esterase, RBC 202, U blood 3+, 2+ bacteria. Of note, patient has had similar presentations to this hospital in the past. Of note, UCx grew Proteus mirabilis on latest three hospital presentations, in January, August 2024 and June 2024. The increased alkalinity of the current admission's UA is also consistent with a UTI caused by Proteus mirabilis. CTAP: Numerous bilateral calcifications including 20 mm calculus in the right renal pelvis on the right and staghorn calculus occupying lower pole calyces left, kidney and left renal pelvis, the pelvic portion measuring 18 mm UCx positive for gram negative bacteria (03/02), BCx was negative 48 hours, urology Dr. Hendrickson recommended no surgical intervention at this time. Diagnostic Inquiry -Follow up on BCx, UCx; preliminary urine culture: GNR, resistance to levo; Prelim blood culture shows no growth after 48 hours -Follow up on MRSA nasal screen --> MRSA screen negative for MRSA -Bladder Scan 03/07: No bladder mass or bladder calculi -FUP with Mamta Aguilar after bladder scan -Will need Urology Outpatient -Will keep her for at least 24 more hours given increase in WBC. May be due to stone causing inflammation. Treatment Plan -ordered cefuroxime 500 mg PO BID -Planning to give cefuroxime PO on discharge -discontinued ceftriaxone -pending urine culture, Stop levo due to resistance, start azithromycin for UTI and Pneumonia coverage -azithromycin 250 mg po q day (03/06-03/09) -ceftriaxone 1 gm -Restarted home medication: GT methenamine hippurate 1 gm BID -IV Tylenol 1000 mg in 100 mL q6HR prn for fever -consulted Infectious Disease, -Continue to monitor CBC, CMP #Atypical versus Gram negative phill Pneumonia #Prior history of aspiration pneumonia #Cerebral palsy Patient is exhibiting high-grade fever, shortness of breath, tachypnea, altered mental status, and diffuse crackles upon lung auscultation CXR suspicious for early pneuomnia of the left base Septic criteria described above Diagnostic Inquiry -Follow up on BCx: same as above -Follow up on MRSA nasal screen: Negative -CXR 03/06: Pneumonia left lung base Treatment Plan -azithromycin 250 mg po q day (03/06-03/09) -Inhaled Levalbuterol 1.25 mg q6HRRT, ipratropium 0.5 mg inhalation every 6 hours SHIPPING PACKER -Aspiration precautions -Flu and pneumonia vaccine screen ?Resume tube feeds -Continue Chest PT and breathing treatments -(03/06)Dried out with lasix 40mg 1x #Chronic encephalopathy #Agitation #Anxiety #Developmental delay (moderate intellectual disability) Per atm technician, patient does not seem to be at cognitive baseline since onset of fever. As of 03/05 patient is more talkative and close to being at baseline per atm technician CT head: Negative for acute hemorrhage, mass effect or midline shift Patient reportedly has a tendency to become agitated in hospital settings Diagnostic Inquiry -No current recommendation Treatment Plan -Restarted home medications: GT Zyprexa 20 mg HS for agitation/delirium -Restarted home medication: GT Effexor 75 mg qAM and 150 mg qHS, GT trazodone 50 mg HS prn for anxiety #Chronic medical problems #Seizures #Spastic quadriplegia #GERD #Gastrotomy tube Diagnostic Inquiry -No current recommendation Treatment Plan -Restarted home medications: GT Keppra 500 mg BID (seizures), GT Prevacid 30 mg BID (GERD) -Dietitian referral Hospital Management: Disposition: undergoing work-up and management of sepsis 2/2 complicated UTI Diet: NPO, tube feeds GI Prophylaxis: Prevacid 30 mg GT BID Bowel Prophylaxis: Senna DVT Prophylaxis: SCDs CODE STATUS: Full Code Patient's plan and care discussed with my attending, Dr. Hopkins and supervising resident MD Ruddy Parnell MD PGY-1 Attending Provider Attestation/Addendum I have discussed and was present for the essential components of the history, physical examination, diagnosis, and treatment plan with the resident. I agree with the patient's care as documented by the resident and amended herein by me. Justin Hopkins DO. Although this document has been carefully reviewed, there may still be some phonetic and other typographical errors. These errors are purely grammatical due to imperfections in the software program and should not be construed in any way to compromise the substance of the patient's medical care during this visit.
[2025-03-08] MEDS: VENLAFAXINE 37.5 MG TABLET 150 MG GT (20:38)
[2025-03-08] MEDS: MELATONIN 3 MG TABLET 6 MG GT (20:39)
[2025-03-09] VITALS (9 sets, daily range): BP systolic 91–121; BP diastolic 59–84; PULSE 92–118; RESP 14–22; TEMP 36.1–36.6; O2SAT 94–100
[2025-03-09] MEDS: IPRATROPIUM RT 0.5 MG/ 2.5 ML NEBU INH ×3 (00:23→13:31)
[2025-03-09] MEDS: BALSAM PERU/CASTOR OIL (Venelex) 60 GM TUBE TOP ×2 (05:14→15:09)
[2025-03-09 06:24] LABS: Basophils # (Auto) 0.0 Thou/mm3 (0.0-0.2); Basophils % (Auto) 0 % (0-2.5); Eosinophils # (Auto) 0.0 Thou/mm3 (0.0-0.5); Eosinophils % (Auto) 0 % (0-10); Hematocrit 44.5 % (36.0-46.0); Hemoglobin 14.4 g/dL (12.0-16.0); Immature Granulocytes Auto 1.35 Thou/mm3 (0.00-0.00); Lymphocytes # (Auto) 2.8 Thou/mm3 (1.0-4.8); Lymphocytes % (Auto) 29 % (10-50); Mean Corpuscular HGB Conc 32.4 g/dl (31.0-37.0); Mean Corpuscular Hemoglobin 30.3 pg (25.0-35.0); Mean Corpuscular Volume 94 fL (80-100); Monocytes # (Auto) 0.7 Thou/mm3 (0.0-0.8); Monocytes % (Auto) 7 % (0-12); Neutrophils # (Auto) 4.8 Thou/mm3 (1.8-7.7); Neutrophils % (Auto) 50 % (37-80); Nucleated Red Blood Cell # 0.00 Thou/mm3 (0.00-0.00); Nucleated Red Blood Cell % 0 /100 WBC (0); Platelet Count 245 Thou/mm3 (140-440); RDW Standard Deviation 47.0 fL (36.4-46.3); Red Blood Count 4.75 Miln/mm3 (4.00-5.20); White Blood Count 9.6 Thou/mm3 (3.6-11.0)
[2025-03-09] MEDS: LEVALBUTEROL RT 1.25 MG/0.5 ML NEBU INH (06:43)
[2025-03-09 07:04] LABS: Alanine Aminotransferase 43 U/L (10-49); Albumin, Serum 3.9 gm/dL (3.5-5.0); Albumin/Globulin Ratio 1.5 (1.2-2.2); Alkaline Phosphatase 58 U/L (46-116); Anion Gap 6 (7-16); Aspartate Amino Transferase 20 U/L (0-34); BUN/Creatinine Ratio 20 Ratio (12-20); Bilirubin,Total 0.2 mg/dL (0.3-1.2); Blood Urea Nitrogen 10 mg/dL (9-23); Calcium 9.0 mg/dL (8.3-10.6); Calcium (Corrected) 9.1 mg/dL (8.5-10.1); Carbon Dioxide 31.1 mMol/L (20.0-31.0); Chloride 102 mMol/L (98-107); Creatinine (Component) 0.5 mg/dL (0.6-1.3); Estimated Creatinine Clearance 127.8 mL/min (>60); Globulin 2.6 gm/dL (2.3-3.5); Glucose 93 mg/dL (74-106); Magnesium 1.9 mg/dL (1.6-2.6); Osmolality,Calculated 276 (275-295); Phosphorous 2.9 mg/dL (2.4-5.1); Potassium 4.3 mMol/L (3.4-5.1); Sodium 139 mMol/L (136-145); Total Protein 6.5 gm/dL (5.7-8.2); eGFR > 60 See Note
[2025-03-09] MEDS: METHENAMINE HIPPURATE 1 GM TABLET GT (10:05)
[2025-03-09] MEDS: levETIRAcetam LIQD 500 MG/5 ML UDC 1000 MG GT (10:06)
[2025-03-09] MEDS: ASCORBIC ACID 250 MG TABLET 1000 MG GT (10:06)
[2025-03-09] MEDS: MULTIVITAMIN 15 ML UDC GT (10:06)
[2025-03-09] MEDS: CHOLECALCIFEROL (Vitamin D3) 1,000 IU TABLET 5000 IU GT (10:07)
[2025-03-09] MEDS: LANSOPRAZOLE 30 MG TAB.RAP.DR GT (10:07)
[2025-03-09] MEDS: ZINC SULFATE 220 MG CAPSULE GT (10:08)
[2025-03-09] MEDS: VENLAFAXINE 37.5 MG TABLET 75 MG GT (10:08)
[2025-03-09] MEDS: METOPROLOL TARTRATE 25 MG TABLET GT (10:08)
--- NOTE | 2025-03-09 11:40 | PC.SS ---
SS contacted [facility] who confirmed jodi delivered 02 to [facility] yesterday. Patient will need gurney transport today. SS set up gurney transport through [employer]. Ref# [id number] with a pick up and delivery driver time of 4p.m. Orders for d/c today.
--- NOTE | 2025-03-09 15:59 | ESDS_ITS ---
<Statement entered by Valerie Cobian MD - 03/09/25 20:01> I have reviewed the note and agree with the resident's assessment & plan with exceptions as below. I have personally reviewed labs, imaging, home meds/prior records, examined the patient, formulated and discussed management plan with the IM team. Patient will need strict follow-up outpatient, will need to continue antibiotic course. We recommend patient to get a second opinion from a urologist for further evaluation of bilateral renal calculi. Also increase patient's metoprolol tartrate as listed below. We suspect patient's tachycardia is from underlying pain, recommended for patient to follow-up with PCP.. Valerie Cobian, PGY-2 Internal Medicine Planned Discharge Date 03/09/25 DS: Providers Provider Date of admission: 03/01/25 22:42 Primary care physician: Radha Juan NP Admitting Provider: Roberto Hickey MD Attending Provider on Admission: Silverio Hopkins DO Consults: 03/01/25 16:31 Referral - Housing Counselor Stat Service Needed for Transfer: Urology Addl Comments:: UTI, intrarenal stones 03/02/25 01:04 Referral Registered Dietitian Routine Comment: 03/02/25 15:12 Consult to Infectious Diseases Routine Comment: Pneumonia, UTI, ?pyelonephritis, renal calculi Consulting Provider: Kole Bergman 03/03/25 08:40 Consult to Urology Routine Comment: nephrolithiasis Consulting Provider: Scott Hendrickson Attending Provider on DC: Silverio Hopkins DO Discharging Provider: Silverio Hopkins DO DS: Diagnosis Problem List Completed Was Problem List Reviewed/Reconciled?: Yes Hospital Course Hospital Course Hospital course: Tamera Hansen is a 29-year-old female with a medical history significant for developmental delay (moderate intellectual disability), cerebral palsy, seizures, spastic quadriplegia, prior aspiration pneumonia, dislocated right hip, exotropia, s/p gastrotomy tube placement, and recurrent UTIs who presented to the Emergency Department at [facility] via EMS from her jail ([facility]) for evaluation of shortness of breath and altered mental status. Patient was admitted for the work-up and management of sepsis r/o 2/2 UTI. IR was consulted for nephrostomy tube placement for bilateral renal pelvic calculi, but was not placed due to facility where she will go back to will not accept her with the nephrostomy tubes. Patient also found to have pneumonia. Patient was started on antibiotics and was appropriately adjust based off of the cultures. Patient on discharge was clinically stable with needing 2L supplemental oxygen via nasal cannula. Discharge Instructions Follow up with PCP within one week We recommend to you to follow up with a second urologist for a second opinion on your renal stones Take your medicines as prescsribed Finish up your antibiotic as prescribed I am changing your metorpolol dose I am prescribing you Flomax Return to ER if your symptoms worsen or return Admission Diagnosis #Complicated UTI ? likely 2/2 P. mirabilis #Kidney stones ? likely 2/2 P. mirabilis #Sepsis #Atypical versus Gram negative phill Pneumonia #Prior history of aspiration pneumonia #Cerebral palsy #Chronic encephalopathy #Agitation #Anxiety #Developmental delay (moderate intellectual disability) #Chronic medical problems #Seizures #Spastic quadriplegia #GERD #Gastrotomy tube Patient plan of care was discussed with the attending physician, Dr. Hopkins and my senior resident, Dr. Aranza Torres MD PGY-1 Time Spent with Patient Time attestation: Total time spent providing and/or coordinating discharge services: Time spent: Greater than 30 minutes Home Health Home Health Referral Orders: 03/09/25 08:22 Home Health Referral Routine Reason For Exam: debility Home-Bound The patient must either because of illness or injury, need the aid of supportive devices such as crutches, canes, wheelchairs, and walkers; the use of special transportation; or the assistance of another person in order to leave their place of residence; OR have a condition such that leaving his or her home is medically contraindicated. In addition, the patient also meets the following criteria: patient is normally unable to leave the home and leaving home requires considerable taxing effort. Addendum to Home Health Certification Practitioner's Certification: I certify that the patient has been under my care in the hospital and the care of attending physician (see below). We had a [id number] encounter on (see date below). My clinical findings indicate that the patient is home bound per the above criteria and the Home Health Services noted in these orders are medically necessary. The primary reason for the [id number] encounter is related to the fact that the patient requires home health services. Date Certifying Yioy-ph-Jcos Physician Encounter: 04/01/25 Physician's Name who will Assume Oversight for Services: Radha Juan Physician's Phone No.who will Assume Oversight for Service: REFRIGERATION SERVICE INSPECTOR - Community Resources: No PT to Evaluate: Yes PT to evaluate and provide a treatmnet plan to increase patient's mobility and strength. Wound Care: No IV Therapy: No RN Safety Evaluation: Yes RN to evaluate and create a plan of care that will produce positive outcomes. Palliative Treatment: No Palliative treatment and evaluate the need for hospice. Home Health Aide - Personal Care: Yes Home Health Aide to assist with any ADL's. Exam Vital Signs Temp Pulse Resp BP Pulse Ox O2 Del Method O2 Flow Rate 97.2 F 100 22 H 106/80 100 Nasal Cannula 2 03/09/25 12:00 03/09/25 13:32 03/09/25 13:32 03/09/25 12:00 03/09/25 13:32 03/09/25 12:00 03/09/25 13:32 Narrative Exam GEN: Flushed. Spastic, alert, responds to yes or no questions and mumbles some words. Spastic extremities HEENT: NC/AC, PERRLA, oral mucosa moist CVS: RRR, S1-S2 present, no murmurs appreciated RESP: Mild L lower wheeze, no use of accessory muscles. 2 L O2 and tolerated well with oxygen saturation of 98% GI: PEG tube in place, no discharge, soft,non distended, non tender, NBS MSK: Spastic extremities SKIN: warm and dry MANAGER TRADE: Patient has history of cerebral palsy, spastic extremities, unable to assess cranial nerves or sensation Discharge Plan Plan Patient Disposition: HOME (Self Care) Disposition Comment: [facility] Patient condition on transfer: Stable Care Plan Goals: Discharge Instructions: Follow up with PCP within one week We recommend to you to follow up with a second urologist for a second opinion on your renal stones Take your medicines as prescsribed Finish up your antibiotic as prescribed I am changing your metorpolol dose I am prescribing you Flomax Return to ER if your symptoms worsen or return Prescriptions/Referrals Prescriptions/Med Rec: New tamsulosin 0.4 mg capsule 0.4 mg PO QDAY 14 Days Qty: 14 0RF metoprolol tartrate 25 mg tablet 12.5 mg PO BID 30 Days Qty: 30 0RF Rx Instructions: Take half a tablet by G tube twice a day cefuroxime axetil 500 mg tablet 500 mg PO BID 10 Days Qty: 20 0RF Rx Instructions: Take one tablet by G-tube twice a day Continued methenamine hippurate 1 gram Tablet 1 g feeding tube BID ascorbic acid (vitamin C) [Vitamin C] 500 mg Tablet 1,000 mg feeding tube BID acetaminophen [Tylenol] 325 mg Tablet 325 mg PO Q4H PRN (Reason: Pain) polyethylene glycol 3350 [Gavilax] 17 gram/dose Powder 17 g feeding tube EVERYOTHERDAY Rx Instructions: 17gm with 8oz water every by mouth every other day. hold for loose stool. docusate sodium [Docu] 50 mg/5 mL liquid 25 ml feeding tube BID venlafaxine 75 mg tablet 75 mg feeding tube QAM venlafaxine 75 mg tablet 150 mg feeding tube HS zinc sulfate 220 mg Tablet 220 mg feeding tube QDAY ibuprofen 400 mg Tablet 400 mg feeding tube Q6H PRN (Reason: Pain) ferrous sulfate 220 mg (44 mg iron)/5 mL Solution 220 mg feeding tube HS melatonin 5 mg Tablet 5 mg feeding tube HS cholecalciferol (vitamin D3) [Vitamin D3] 125 mcg (5,000 unit) Tablet 5,000 unit feeding tube QDAY olanzapine 5 mg tablet 25 mg feeding tube HS PRN (Reason: agitation) baclofen 20 mg tablet 20 mg feeding tube TID levetiracetam [Keppra] 100 mg/mL solution 1,000 mg feeding tube BID lamotrigine [Lamictal] 100 mg tablet 100 mg feeding tube BID lamotrigine 200 mg tablet 400 mg feeding tube Q12H lorazepam 1 mg tablet 2 mg feeding tube Q4H PRN (Reason: agitation) Children's Cold-Allergy (PE) 1-2.5 mg/5 mL solution 118 ml feeding tube Q6H PRN (Reason: allergy symptoms) Calmoseptine ointment See Rx Instructions topical BID PRN (Reason: to prevent redness to coccyx) Patient Comments: 113 gm ointment apply prn Rx Instructions: 1 application topically twice a day PRN; Discontinued omeprazole 40 mg capsule,delayed release(DR/EC) 40 mg feeding tube QDAY metoprolol tartrate 25 mg tablet 12.5 mg feeding tube QDAY Thera-M 27-0.4 mg tablet 1 tab feeding tube QDAY Referrals: Radha Juan, EVENT MARKETING COORDINATOR [Primary Care Provider] - Patient/Caregiver Discharge Instructions Education Materials: Diagnosing Epilepsy, Anatomy of the Female Urinary Tract, Urinary Tract Infections in Women, Understanding Tachycardia Print Language: Kenyan Stand Alone Forms: [employer] Award Info., Patient Portal Info Letter Discharge Order Discharge Orders: Discharge (Routine); Ordered 03/09/25 Ordered By: Valerie Cobian Quality Discharge Quality Measures VTE prophylaxis Attestestation MD Attestation I have discussed and was present for the essential components of the discharge history, physical examination, diagnosis, and discharge treatment plan with the resident. I agree with the patient's discharge care as documented by the resident and amended herein by me. Justin Hopkins, . Patient significantly improved on day of discharge, will be discharged on a course of cefuroxime, WBC did improved, patient on 2 L NC, SpO2 95% on day of discharge. Home O2 has been provided, home health is also been ordered for the patient. The patient should return to the emergency department for persistent or worsening symptoms. Appears patient is back to her baseline at time of discharge. Although this document has been carefully reviewed, there may still be some phonetic and other typographical errors. These errors are purely grammatical due to imperfections in the software program and should not be construed in any way to compromise the substance of the patient's medical care during this visit.
--- NOTE | 2025-03-10 07:34 | PC.CC ---
Addendum entered by Milagro Hickman RN 03/10/25 11:13: [facility] accepted and booked, SOC pending Original Note: HH ref sent, waiting for response
--- NOTE | 2025-03-12 13:12 | PC.CC ---
Pending start of care date with [facility]
--- NOTE | 2025-03-13 16:46 | PC.CM ---
Patient accepted by [facility]. Start of care date set for 03/15.
--- NOTE | 2025-03-15 08:24 | PC.CC ---
received message on Anibal from [facility] Patient needs to establish care with CHELO Ley before HH Orders will be signed. Patient has MD Appt 03/16/25. Per MD she needs to be seen first before they will follow for HH.
== END 2025-03-09 16:10 | disposition home or self-care (01) | DRG 871 ==
LOC: SERX 21:46 → SERHOLD 23:37 → S3NX 03-02 00:50 → S2NX 03-03 19:57
PROVIDERS: Student in an Organized Health Care Education/Training Program; Admitting Provider Internal Medicine; Emergency Provider Emergency Medicine; PCP Registered Nurse; Visit Provider Student in an Organized Health Care Education/Training Program
DX: A41.9 Sepsis, unspecified organism (principal); G80.0 Spastic quadriplegic cerebral palsy; J18.9 Pneumonia, unspecified organism; G93.41 Metabolic encephalopathy; J69.0 Pneumonitis due to inhalation of food and vomit; N39.0 Urinary tract infection, site not specified; F71 Moderate intellectual disabilities; I95.9 Hypotension, unspecified; N20.0 Calculus of kidney; F41.9 Anxiety disorder, unspecified; R09.02 Hypoxemia; Z87.01 Personal history of pneumonia (recurrent); G40.909 Epilepsy, unspecified, not intractable, without status epilepticus; R56.9 Unspecified convulsions; K21.9 Gastro-esophageal reflux disease without esophagitis; Z93.1 Gastrostomy status; Z87.440 Personal history of urinary (tract) infections; Z79.899 Other long term (current) drug therapy
CPT/HCPCS: 36415; 36600; 70450; 71045; 74176; 76857; 80053; 80069; 81001; 82306; 82803; 83605; 83690; 83735; 83880; 84100; 84145; 84484; 84703; 85025; 85610; 85730; 87040; 87077; 87081; 87086; 87186; 87400; 87811; 93005; 93225; 94640; 94664; 94667; 96361; 96365; 96366; 96375; 99284; J0131; J0696; J1938; J2250; J2270; J2405; J2543; J2919; J3010; J3475; J7030; J7120; J7999; S0077; A9270; J0736

== ENCOUNTER → 2025-03-15 | Outpatient (CLI) | payer MEDICARE, MEDICAID, SELFPAY ==
[2025-03-15 20:10] LABS: Collection Type, Urine Catheter; RBC,Urine 0 /hpf (0-3); Squamous Epithelial Cell,Urine 0 /hpf (0-5)
[2025-03-15 20:23] LABS: Bacteria,Urine Rare; Bilirubin,Urine Negative (Negative); Blood,Urine Negative (Negative); Clarity,Urine Turbid (Clear/Hazy); Color,Urine Yellow (Lt Yel-Yel); Culture Indicated,Urine Yes; Glucose, Urine Negative (Negative); Ketones,Urine Negative (Negative); Leukocyte Esterase,Urine Positive (Negative); Nitrite,Urine Negative (Negative); PH,Urine 7.5 (5.0-7.0); Protein,Urine Negative (Neg - Trace); Specific Gravity,Urine 1.016 (1.001-1.035); Urobilinogen,Urine Negative mg/dL (0.0-1.0); WBC,Urine 26 /hpf (0-5)
== END | disposition home or self-care (01) ==
LOC: SLDO 19:31
PROVIDERS: PCP Family Medicine; Referring Provider Family Medicine; Visit Provider Family Medicine
DX: N39.0 Urinary tract infection, site not specified (principal); R31.9 Hematuria, unspecified; G40.89 Other seizures; G80.0 Spastic quadriplegic cerebral palsy
CPT/HCPCS: 81001; 87077; 87086; 87186

== ENCOUNTER → 2025-04-05 | Outpatient (CLI) | payer MEDICARE, MEDICAID, SELFPAY ==
[2025-04-05 20:40] LABS: Collection Type, Urine Catheter; Squamous Epithelial Cell,Urine 0 /hpf (0-5)
[2025-04-05 21:00] LABS: Bilirubin,Urine Negative (Negative); Blood,Urine 3+ (Negative); Clarity,Urine Clear (Clear/Hazy); Color,Urine Colorless (Lt Yel-Yel); Culture Indicated,Urine Yes; Glucose, Urine Negative (Negative); Ketones,Urine Negative (Negative); Leukocyte Esterase,Urine Positive (Negative); Nitrite,Urine Negative (Negative); PH,Urine 8.0 (5.0-7.0); Protein,Urine Negative (Neg - Trace); RBC,Urine 7 /hpf (0-3); Specific Gravity,Urine 1.004 (1.001-1.035); Urobilinogen,Urine Negative mg/dL (0.0-1.0); WBC,Urine 50 /hpf (0-5)
== END | disposition home or self-care (01) ==
LOC: SLDO 20:29
PROVIDERS: Referring Provider Specialist; Visit Provider Specialist
DX: Z76.89 Persons encountering health services in other specified circumstances (principal)
CPT/HCPCS: 81001; 87077; 87086; 87186

== ENCOUNTER → 2025-04-29 | Outpatient (CLI) | payer MEDICARE, MEDICAID, SELFPAY ==
[2025-04-29 02:15] LABS: Collection Type, Urine Catheter
[2025-04-29 02:47] LABS: Amorphous Crystals,Urine Present (Absent); Bacteria,Urine 1+; Bilirubin,Urine Negative (Negative); Blood,Urine 1+ (Negative); Budding Yeast,Urine Present; Clarity,Urine Turbid (Clear/Hazy); Color,Urine Lt-Yellow (Lt Yel-Yel); Culture Indicated,Urine Yes; Glucose, Urine Negative (Negative); Ketones,Urine Negative (Negative); Leukocyte Esterase,Urine Positive (Negative); Nitrite,Urine Positive (Negative); PH,Urine 7.5 (5.0-7.0); Protein,Urine Trace (Neg - Trace); RBC,Urine 15 /hpf (0-3); Specific Gravity,Urine 1.012 (1.001-1.035); Squamous Epithelial Cell,Urine 1 /hpf (0-5); Urobilinogen,Urine Negative mg/dL (0.0-1.0); WBC,Urine 113 /hpf (0-5)
== END | disposition home or self-care (01) ==
LOC: SLDO 00:27
PROVIDERS: PCP Family Medicine; Referring Provider Family Medicine; Visit Provider Family Medicine
DX: N39.0 Urinary tract infection, site not specified (principal); R31.9 Hematuria, unspecified; G40.89 Other seizures; G80.0 Spastic quadriplegic cerebral palsy
CPT/HCPCS: 81001; 87077; 87086; 87186

== ENCOUNTER → 2025-05-05 | Outpatient (CLI) | payer MEDICARE, MEDICAID, SELFPAY ==
[2025-05-05 12:52] LABS: Basophils # (Auto) 0.1 Thou/mm3 (0.0-0.2); Basophils % (Auto) 1 % (0-2.5); Eosinophils # (Auto) 0.0 Thou/mm3 (0.0-0.5); Eosinophils % (Auto) 0 % (0-10); Hematocrit 40.8 % (36.0-46.0); Hemoglobin 13.5 g/dL (12.0-16.0); Immature Granulocytes Auto 0.11 Thou/mm3 (0.00-0.00); Lymphocytes # (Auto) 1.9 Thou/mm3 (1.0-4.8); Lymphocytes % (Auto) 31 % (10-50); Mean Corpuscular HGB Conc 33.1 g/dl (31.0-37.0); Mean Corpuscular Hemoglobin 30.5 pg (25.0-35.0); Mean Corpuscular Volume 92 fL (80-100); Monocytes # (Auto) 0.7 Thou/mm3 (0.0-0.8); Monocytes % (Auto) 11 % (0-12); Neutrophils # (Auto) 3.5 Thou/mm3 (1.8-7.7); Neutrophils % (Auto) 56 % (37-80); Nucleated Red Blood Cell # 0.00 Thou/mm3 (0.00-0.00); Nucleated Red Blood Cell % 0 /100 WBC (0); Platelet Count 181 Thou/mm3 (140-440); RDW Standard Deviation 46.7 fL (36.4-46.3); Red Blood Count 4.42 Miln/mm3 (4.00-5.20); White Blood Count 6.3 Thou/mm3 (3.6-11.0)
[2025-05-05 13:17] LABS: Alanine Aminotransferase 26 U/L (10-49); Albumin, Serum 4.4 gm/dL (3.5-5.0); Albumin/Globulin Ratio 2.1 (1.2-2.2); Alkaline Phosphatase 67 U/L (46-116); Anion Gap 11 (7-16); Aspartate Amino Transferase 25 U/L (0-34); BUN/Creatinine Ratio 33 Ratio (12-20); Bilirubin,Total 0.2 mg/dL (0.3-1.2); Blood Urea Nitrogen 13 mg/dL (9-23); Calcium 9.4 mg/dL (8.3-10.6); Calcium (Corrected) 9.4 mg/dL (8.5-10.1); Carbon Dioxide 26.9 mMol/L (20.0-31.0); Chloride 106 mMol/L (98-107); Creatinine (Component) 0.4 mg/dL (0.6-1.3); Globulin 2.1 gm/dL (2.3-3.5); Glucose 78 mg/dL (74-106); Osmolality,Calculated 285 (275-295); Potassium 4.2 mMol/L (3.4-5.1); Sodium 144 mMol/L (136-145); Total Protein 6.5 gm/dL (5.7-8.2); eGFR > 60 See Note
[2025-05-05 13:24] LABS: Glucose Estimated Average 85 mg/dL (80-131); Hemoglobin A1C 4.6 % Hgb (4.8-6.0)
[2025-05-09 14:12] LABS: Levetiracetam (Keppra)* 12.2 mcg/mL (6.0-46.0)
[2025-05-12 06:59] LABS: Lamotrigine* 15.5 mcg/mL (2.5-15.0)
== END | disposition home or self-care (01) ==
LOC: SLDO 11:49
PROVIDERS: Referring Provider Family Medicine; Visit Provider Family Medicine
DX: Z00.00 Encounter for general adult medical examination without abnormal findings (principal); R31.9 Hematuria, unspecified; G40.89 Other seizures; G80.0 Spastic quadriplegic cerebral palsy
CPT/HCPCS: 36415; 80053; 80175; 80177; 83036; 85025

== ENCOUNTER → 2025-06-28 | Outpatient (CLI) | payer MEDICARE, MEDICAID, SELFPAY ==
[2025-06-28 12:55] LABS: Collection Type, Urine Catheter
[2025-06-28 14:07] LABS: Amorphous Crystals,Urine Present (Absent); Bacteria,Urine Rare; Bilirubin,Urine Negative (Negative); Blood,Urine Trace (Negative); Color,Urine Yellow (Lt Yel-Yel); Glucose, Urine Negative (Negative); Ketones,Urine Negative (Negative); Leukocyte Esterase,Urine Positive (Negative); Nitrite,Urine Negative (Negative); PH,Urine 8.5 (5.0-7.0); Protein,Urine 1+ (Neg - Trace); RBC,Urine 93 /hpf (0-3); Specific Gravity,Urine 1.018 (1.001-1.035); Squamous Epithelial Cell,Urine < 1 /hpf (0-5); Urobilinogen,Urine Negative mg/dL (0.0-1.0); WBC,Urine 56 /hpf (0-5)
[2025-06-28 14:09] LABS: Clarity,Urine Hazy (Clear/Hazy); Culture Indicated,Urine Yes
[2025-06-28 15:34] LABS: HCG,Qualitative Serum Negative
== END | disposition home or self-care (01) ==
LOC: SLDO 12:52
PROVIDERS: Referring Provider Family Medicine; Visit Provider Family Medicine
DX: Z01.812 Encounter for preprocedural laboratory examination (principal); R31.9 Hematuria, unspecified; G40.89 Other seizures; G80.0 Spastic quadriplegic cerebral palsy
CPT/HCPCS: 36415; 81001; 84703; 87077; 87086; 87186

== ENCOUNTER → 2025-07-19 | Outpatient (CLI) | payer MEDICARE, MEDICAID, SELFPAY ==
[2025-07-20 01:32] LABS: Collection Type, Urine Voided; Squamous Epithelial Cell,Urine 0 /hpf (0-5)
[2025-07-20 01:43] LABS: Bacteria,Urine Rare; Bilirubin,Urine Negative (Negative); Blood,Urine 2+ (Negative); Clarity,Urine Clear (Clear/Hazy); Color,Urine Lt-Yellow (Lt Yel-Yel); Culture Indicated,Urine Yes; Glucose, Urine Negative (Negative); Ketones,Urine Negative (Negative); Leukocyte Esterase,Urine Positive (Negative); Nitrite,Urine Positive (Negative); PH,Urine 7.5 (5.0-7.0); Protein,Urine Negative (Neg - Trace); RBC,Urine 7 /hpf (0-3); Specific Gravity,Urine 1.007 (1.001-1.035); Urobilinogen,Urine Negative mg/dL (0.0-1.0); WBC,Urine 35 /hpf (0-5)
== END | disposition home or self-care (01) ==
LOC: SLDO 07-20 00:11
PROVIDERS: PCP Family Medicine; Referring Provider Family Medicine; Visit Provider Family Medicine
DX: N39.0 Urinary tract infection, site not specified (principal); R31.9 Hematuria, unspecified; G40.89 Other seizures; G80.0 Spastic quadriplegic cerebral palsy
CPT/HCPCS: 81001; 87077; 87086; 87186